=== PATIENT | male | born 1960 | race Caucasian/White ===

== ENCOUNTER 2018-03-24 14:30 | Outpatient (RCR) | payer OTHER, SELFPAY ==
--- NOTE | 2017-11-06 16:02 | HP.PTEVAL_ITS ---
Patient's Visit Information MOISES FERREIRA is a 57 year old M referred to Physical Therapy by Frederick Owen [facility] with a diagnosis of R ACL reconstruction with allograph. Date of Evaluation: 11/06/17 Physical Therapist: Diogenes Torres, PT, - Visit Plan Frequency: 3x /Week Duration: 2 Months Plan: R knee streching and strengthening, balance and proprio, core stab ex's, Bike, and HEP - Subjective Subjective: DOS: 10/24/17. DOI: 07/31/17. Pt reports he was descending a ladder when he stepped into a bin at work and twisted his knee. Pt reports this resulted in a torn ACL and medial and lateral meniscus. Pt reports he was on crutches for 5-6 days, and has been walking normal since. Pt reports he has been using a CPM machine at home, but has not been given any other ex's to do. No T or N in R LE. No sleep diff secondary to pain. Pt is in maintenance dept at work. Pt has not been walking excep-t for when he has his brace on and is locked at 0 degrees. 3/10 pain at rest, and it stays there pretty much all the time. - Pain R knee Pain Intensity (Out of 10): 3 Pain Intensity Range: 3 - Objective Neuro: B LE sensation is WNL to light touch. Girth at joint line: R knee 37.5 cm, L knee 35.5 cm. ROM: L knee 0-140 degrees, R knee 0-85 degrees. MMT: L knee 5/5 throughout. R knee 3/5 throughout - Goals Goal 1:: Decrease R knee pain x 50% to aid with IADL's Goal Time Frame: 8 weeks Goal 2:: Increase R knee ROM x 30 degrees to aid with restoring normal gait pattern Goal Time Frame: 8 weeks Goal 3:: Increase R knee strength x 1 grade to aid with stair negotiation Goal Time Frame: 8 weeks Goal 4:: I with HEP Goal Time Frame: 8 weeks - Rehabilitation Potential Physical Therapy Diagnosis: R knee pain, weakness, and limited ROM secondary to R ACL reconstruction Rehabilitation Potential: Good - Anticipated Interventions Patient/Client Instruction: Educate patient on: Condition, Plan of Care For the Purpose of:: To improve self management Therapeutic Exercise to Include: Strength training, Endurance training, Balance training, Flexibilty training, Gait and locomotor training, Passive ROM, Active ROM, Dynamic Lumbar Stabilization For the Purpose of:: To decrease pain, To increase ROM, To improve muscle performance and motor function Cryotherapy (ice pack, ice massage): Yes For the Purpose of:: To decrease pain Thank you for the opportunity to evaluate your patient. For Medicare and Medicare HMO plans, please review the plan of care and approve it. It will need to be FAXED BACK to us at [phone] for Medicare purposes. Please let me know if there are questions or concerns regarding this plan of care. Physician Signature: Date:
--- NOTE | 2017-12-06 07:32 | HP.PTREVAL_ITS ---
Frederick Owen, It has been my pleasure to treat MOISES FERREIRA over the last 11 visits for R ACL reconstruction with allograph. Please see the progress note below for an update on the physical therapy plan of care! Subjective: Minor pain currently. Objective/Function: R knee pain 1/10, but still elevates to 4/10 at worst. R knee ROM: 0-134. R knee strength: flex= 4/5, ext= 4-/5. Pt is progressing well toward Rx goals. Pt still has sleep diff and difficulty with stair negotiation Plan Plan: Request date extension to 01/20/18 Goals Goal 1:: Decrease R knee pain x 50% to aid with IADL's Goal Time Frame: 8 weeks Goal 2:: Increase R knee ROM x 30 degrees to aid with restoring normal gait pattern Goal Time Frame: 8 weeks Goal 3:: Increase R knee strength x 1 grade to aid with stair negotiation Goal Time Frame: 8 weeks Goal 4:: I with HEP Goal Time Frame: 8 weeks Anticipated Interventions Patient/Client Instruction: Educate patient on: Condition, Plan of Care For the Purpose of:: To improve self management Therapeutic Exercise to Include: Strength training, Endurance training, Balance training, Flexibilty training, Gait and locomotor training, Passive ROM, Active ROM, Dynamic Lumbar Stabilization For the Purpose of:: To decrease pain, To increase ROM, To improve muscle performance and motor function Cryotherapy (ice pack, ice massage): Yes For the Purpose of:: To decrease pain Please do not hesitate to contact me at [phone] by phone or Fax: if you have questions or concerns regarding this new plan of care! Sincerely, Diogenes Torres, PT,
--- NOTE | 2018-03-26 15:02 | HP.PT.NRP ---
HP - Discharge Summary (1) - Patient Information MOISES FERREIRA was seen in my office for initial evaluation on 11/06/17. The following Plan of Care was established for this patient: Initial Frequency: 3x /Week Initial Duration: 2 Months - Anticipated Interventions Patient/Client Instruction: Educate patient on: Condition, Plan of Care For the Purpose of:: To improve self management Therapeutic Exercise to Include: Strength training, Endurance training, Balance training, Flexibilty training, Gait and locomotor training, Passive ROM, Active ROM, Dynamic Lumbar Stabilization For the Purpose of:: To decrease pain, To increase ROM, To improve muscle performance and motor function Cryotherapy (ice pack, ice massage): Yes For the Purpose of:: To decrease pain This patient was last seen in our office . Pertinent comments regarding their Physical therapy will appear below: Pt cancelled today noting he is not going to reschedule as he feels he needs no further PT. Pt is discharged at this time. At this point I will be discontinuing this patient from physical therapy. I would be happy to see this patient again in the future if found appropriate by the physician. Thank you! Diogenes Torres, PT,
== END 2018-03-24 19:00 | disposition home or self-care (01) ==
LOC: PT 14:30
PROVIDERS: Visit Provider Orthopaedic Surgery
DX: S83.511D Sprain of anterior cruciate ligament of right knee, subsequent encounter (principal); S83.271D Complex tear of lateral meniscus, current injury, right knee, subsequent encounter; S83.231D Complex tear of medial meniscus, current injury, right knee, subsequent encounter
CPT/HCPCS: 97016; 97110; 97161; 97530

== ENCOUNTER 2018-05-09 09:01 | Day surgery (SDC) | payer OTHER, SELFPAY ==
[2018-05-09] VITALS (8 sets, daily range): BP systolic 88–134; BP diastolic 59–93; PULSE 66–883; RESP 14–16; TEMP 36–37; O2SAT 92–100; BMI 27.0
--- NOTE | 2018-05-09 | COLBX_PTH ---
PATIENT: MOISES FERREIRA LOC: EN U#:[id number] AGE/SX: 57/M ROOM: RE05/09/[address]: Dr. Uriel Barrientos MD : 1960 BED: DIS: 05/09/2018 SPEC #: [id number] RECD: 05/09/18 14:32 STATUS: MARCELO AMADOR #: [id number] RADHA: 05/09/18 00:[address]: Uriel Barrientos DEPT: SURGICAL PATHOLOGY RECD BY: Shashi Mckay ENTERED: 05/09/18 14:32 SP TYPE: COLON BX OTHR DR: MARCUS Murray Tissues: Sigmoid colon biopsy Procedures: Surgery Specimen Level IV HEADER OPERATION: Colonoscopy PRE-OP DIAGNOSIS: Screening TISSUE SUBMITTED: Proximal sigmoid polyp biopsy MICROSCOPIC DIAGNOSIS Proximal sigmoid polyp, biopsy: Fragments of colonic mucosa, no pathologic diagnosis. SJ:jay 05/12/18 MICROSCOPIC DESCRIPTION Slides are reviewed. GROSS DESCRIPTION Received in fixative is one container labeled with the patient's name and designated proximal sigmoid polyp biopsy. The specimen consists of multiple irregular fragments of light moffett soft tissue that in aggregate measure 1 x 0.3 x 0.1 cm. The specimen is totally submitted in one cassette. / SJ:jay 05/09/18 TC:4 CPT: 55145
--- NOTE | 2018-05-09 10:52 | PCM.HP.STD ---
Problem List (1) Screening for intestinal cancer Status: Acute History of Present Illness Date of Admission: 05/09/18 The patient is a 57 year old M who presents for screening colonoscopy. Month ago he had a 1 week history of diarrhea. He has not had anything like that previously and has not had anything since. He claims that he was checked and was noted to be possibly milk intolerant. He also states that on 1 of the checks during that episode he had some heme positive stool. He has not noticed any bright red blood per rectum or melena. Family history is notable for maternal and paternal grandfathers with colon cancer. He has never had a previous colonoscopy. He denies abdominal pain. He has not had any unexpected weight loss. He otherwise enjoys good health. Past Medical History Allergies No Known Allergies Allergy (Verified 05/06/18 11:06) Home Medications: Ambulatory Orders Medication Instructions Recorded NK 05/06/18 Smoking Status: Never smoker Tobacco Use: Non-smoker Review of Systems Constitutional: Denies: Anorexia HEENT: Denies: Difficulty Swallowing Cardiovascular: Denies: Chest Pain Respiratory: Denies: Cough Gastrointestinal: Denies: Abdominal Pain, Constipation Genitourinary: Denies: Dysuria Endocrine: Denies: Change in Body Habitus Hematologic/ Lymphatic: Denies: Adenopathy VTE Information - Inpt Only VTE Present on Admission: No Patient Problems: Active and Suspected Problems Screening for intestinal cancer (Acute) - Physical Exam General: Alert, Oriented x3, Cooperative, No apparent distress HEENT: Atraumatic Oral: Moist Mucosa Neck: Supple Lungs: Clear to auscultation Cardiovascular: Regular rate, Regular Rhythm Abdomen: Bowel Sounds Present, Soft, Non Tender Extremities: No clubbing Skin: No rashes Musculoskeletal: No Tenderness to Palpation of Joints or Extremities Lymphatic: No Cervical, Supraclavicular, or Inguinal Adenopathy Neurological: Cranial nerves II-XII grossly intact Vital Signs Temp Pulse Resp BP Pulse Ox 98.6 F 66 16 124/93 H 95 05/09/18 09:34 05/09/18 09:34 05/09/18 09:34 05/09/18 09:34 05/09/18 09:34 Oxygen Delivery Method Room Air Weight: 164 lb 12.8 oz Body Mass Index (BMI) 27.0 Assessment/Plan All Active Problems Screening for intestinal cancer (Acute) I am proposing the patient is screening colonoscopy with possible biopsy or polypectomy is indicated. He has had an opportunity to ask and have questions answered. He is presenting via our open access program. Primary care provider is Christiano Barrientos M.D., F.A.C.S.
--- NOTE | 2018-05-09 11:32 | OP.ENDO_ITS ---
Patient Name: Drake Rolle Procedure Date: 05/09/2018 10:15 AM Date of : 1960 Age: 57 Procedure: Colonoscopy Indications: Screening for colorectal malignant neoplasm Providers: Uriel Barrientos MD Referring MD: Uriel Barrientos MD Medicines: Midazolam 5 mg IV, Meperidine 100 mg IV Patient Profile: Last Colonoscopy: none. The patient's first colonoscopy is today. Complications: No immediate complications. Procedure: Pre-Anesthesia Assessment: - Prior to the procedure, a History and Physical was performed, and patient medications and allergies were reviewed. The patient's tolerance of previous anesthesia was also reviewed. The risks and benefits of the procedure and the sedation options and risks were discussed with the patient. All questions were answered, and informed consent was obtained. Prior Anticoagulants: The patient has taken no previous anticoagulant or antiplatelet agents. ASA Grade Assessment: II - A patient with mild systemic disease. After reviewing the risks and benefits, the patient was deemed in satisfactory condition to undergo the procedure. After I obtained informed consent, the scope was passed under direct vision. Throughout the procedure, the patient's blood pressure, pulse, and oxygen saturations were monitored continuously. The colonoscope was introduced through the anus and advanced to the cecum, identified by appendiceal orifice and ileocecal valve. The colonoscopy was performed with moderate difficulty due to a tortuous colon. Successful completion of the procedure was aided by increasing the dose of sedation medication, changing the patient to a supine position and applying abdominal pressure. The patient tolerated the procedure well. The quality of the bowel preparation was good. The ileocecal valve was photographed. Moderate Sedation: Moderate (conscious) sedation was personally administered by the endoscopist. The following parameters were monitored: oxygen saturation, heart rate, blood pressure, and response to care. Total physician intraservice time was 15 minutes. Scope In: 10:59:32 AM Scope Withdrawal Time 0 hours 8 minutes 22 seconds Scope Out: 11:26:18 AM Total Procedure Duration Time 0 hours 26 minutes 46 seconds Findings: The perianal and digital rectal examinations were normal. Multiple diverticula were found in the entire colon. A 6 mm polyp was found in the proximal sigmoid colon. The polyp was sessile. The polyp was removed with a cold snare. Resection and retrieval were complete. Impression: - Diverticulosis in the entire examined colon. - One 6 mm polyp in the proximal sigmoid colon, removed with a cold snare. Resected and retrieved. This was vague. Will await pathology Recommendation: - Repeat colonoscopy in 5 years for surveillance based on pathology results. - Telephone my office for pathology results in 1 week. - Resume previous diet. - Continue present medications. Procedure Code(s): --- Professional --- 30569, Colonoscopy, flexible; with removal of tumor(s), polyp(s), or other lesion(s) by snare technique 75898, 59, Moderate sedation services provided by the same physician or other qualified health after school caregiver performing the diagnostic or therapeutic service that the sedation supports, requiring the presence of an independent trained observer to assist in the monitoring of the patient's level of consciousness and physiological status; initial 15 minutes of intraservice time, patient age 5 years or older Diagnosis Code(s): --- Professional --- Z12.11, Encounter for screening for malignant neoplasm of colon D12.5, Benign neoplasm of sigmoid colon K57.30, Diverticulosis of large intestine without perforation or abscess without bleeding CPT copyright 2017 [employer]. All rights reserved. The codes documented in this report are preliminary and upon medical records clerk review may be revised to meet current compliance requirements. Uriel Barrientos MD 05/09/2018 11:32:16 AM This report has been signed electronically. Number of Addenda: 0 Note Initiated On: 05/09/2018 10:15 AM
== END 2018-05-09 12:29 | disposition home or self-care (01) ==
LOC: EN 09:01 → AC 09:03
PROVIDERS: Family Provider Physician Assistant; PCP Physician Assistant; Visit Provider Surgery
PROC: 0DJD8ZZ Inspection of Lower Intestinal Tract, Via Natural or Artificial Opening Endoscopic (ICD-10-PCS; CPT 45378; principal; 2018-05-09 10:10)
DX: Z12.11 Encounter for screening for malignant neoplasm of colon (principal); D12.5 Benign neoplasm of sigmoid colon; K57.30 Diverticulosis of large intestine without perforation or abscess without bleeding; Z80.0 Family history of malignant neoplasm of digestive organs
CPT/HCPCS: 45385; 88305; 99152; 99153; J7120

== ENCOUNTER 2022-12-22 11:55 | Emergency (ER) | payer OTHER, SELFPAY ==
[2022-12-22 11:56] VITALS: BP 185/108; PULSE 75; RESP 16; TEMP 36.2; O2SAT 97
--- NOTE | 2022-12-22 12:15 | CT_ITS ---
STUDY: CT BRAIN WITHOUT CONTRAST REASON FOR EXAM: Male, 62 years old. dizziness, disequilibrium PT STATES SKIN HURTSTamp;quot; ON FOREARMS SINCE SATURDAY. DIZZINESS SINCE LAST NIGHT UPON STANDING WITH VOMITING. RADIATION DOSAGE (If Supplied By Facility): CTDIvol = ( 44.99 ) mGy, DLP = ( 796.11 ) mGycm TECHNIQUE: Transaxial CT imaging of the brain was performed without administration of intravenous contrast material. Individualized dose optimization techniques were used for this CT. COMPARISON: None. FINDINGS: Normal soft tissue structures. Normal calvarium. Normal size ventricles and extra-axial spaces for the patient''s age. There are areas of decreased attenuation within the white matter tracts of the supratentorial brain, consistent with microvascular disease changes. Normal basal ganglia and thalami. Normal brainstem. Normal cerebellum. No visualized asymmetric dense artery sign or sulcal effacement or parenchymal edema is present. Cavernous sinus ICA atherosclerotic calcifications are seen. There is no intracranial hemorrhage. There are no findings of an acute ischemic infarction. There is mucoperiosteal inflammatory disease of the paranasal sinuses consistent with mild chronic sinusitis. CT/Brain/Head without Contrast IMPRESSION: Unremarkable unenhanced CT scan of the brain. Electronically Signed: Jamshid Dubon MD at 13:30 EDT ,
--- NOTE | 2022-12-22 12:15 | EKG12_ITS ---
Test Reason : dizziness Blood Pressure : / mmHG Vent. Rate : 066 BPM Atrial Rate : 066 BPM P-R Int : 152 ms QRS Dur : 098 ms QT Int : 386 ms P-R-T Axes : -04 017 057 degrees QTc Int : 404 ms Normal sinus rhythm Nonspecific T wave abnormality Abnormal ECG Confirmed by EDWIN WALLACE, KAREN ([id number]), development editor MICHELLE FANG ([id number]) on 12/24/2022 11:28:41 A M Referred By: Noel Confirmed By:MARIO PINEDA MD
--- NOTE | 2022-12-22 12:16 | EX.ED.DYSGE1 ---
HPI History of Present Illness Chief Complaint: Dizziness Detail of Chief Complaint: Dizziness and feeling off balance Informant: patient Narrative Narrative: Patient presents to the emergency department with complaint of dizziness and feeling off balance since he woke up at 4 AM. Patient he noticed that when he went to the bathroom he was kind of off balance but thought it was just because he had just woken up. He went back to bed. Upon waking again he feels lightheaded and off balance especially with standing and walking. He did vomit after 930x2. He denies falls or head injuries. He denies headache. Denies recent illness. He denies chest pain or shortness of breath. Patient does have history of vertigo 10 years ago but is not sure if this is the same. Patient denies a spinning sensation. [facility] Medical History (Updated 12/22/22 @ 14:[address] Jeanette Rodriguez, ) Back pain with history of spinal surgery Home Medications meclizine 25 mg chewable tablet (Antivert) 25 mg PO TID PRN diziness #20 tabs 12/22/22 [Rx Last Taken Unknown] ondansetron 4 mg disintegrating tablet 4 mg PO Q8H PRN PRN Nausea #10 tabs 12/22/22 [Rx Last Taken Unknown] Allergy/AdvReac Type Severity Reaction Status Date / Time No Known Allergies Allergy Verified 12/22/22 11:56 Surgical History H/O knee surgery Social History Smoking Status: Never smoker ROS ROS ED Review of Systems ROS Unobtainable: other Constitutional Constitutional ED: Reports lethargy; Denies chills, fever(s), sweats or weight loss Eyes Eyes: Denies blurry vision, change in vision or diplopia ENT ENT ED: Denies rhinorrhea or sore throat Cardiovascular Cardiovascular: Denies chest pain, orthopnea or racing heartbeat Respiratory/Chest Respiratory/Chest: Denies cough, dyspnea, dyspnea on exertion, orthopnea or sputum Gastrointestinal Gastrointestinal: Reports nausea and vomiting; Denies abdominal pain or diarrhea Genitourinary Genitourinary ED: Denies dysuria, hematuria or urinary frequency Musculoskeletal Musculoskeletal: Denies arthralgias, back pain, myalgias or neck pain Integumentary Denies abscess, Abrasions or rash Neurologic Neurologic: Reports other Details: Dizziness ; Denies headache(s) or weakness Psychiatric Psychiatric: Denies anxiety, depression or suicidal thoughts Endocrine Endocrinology: Denies polydipsia, polyphagia or polyuria Hematologic/Lymphatic Hematologic/Lymphatic: Denies easy bleeding, easy bruising or lymphadenopathy Allergic/Immunologic Allergic/Immunologic ED: Denies mouth swelling, tongue swelling or urticaria EXAM Physical Exam Const Vital Signs: 12/22/22 11:56 12/22/22 12:45 12/22/22 14:00 Temperature 97.2 F L Temperature Source Temporal Pulse Rate 75 71 Pulse Rate [Lying] 62 Pulse Rate [Sitting (for 1 minute prior to obtaining)] 65 Pulse Rate [Standing (for 1 minute prior to obtaining)] 71 Respiratory Rate 16 18 Blood Pressure 185/108 H 160/93 H Blood Pressure [Lying] 162/88 H Blood Pressure [Sitting (for 1 minute prior to obtaining)] 154/94 H Blood Pressure [Standing (for 1 minute prior to obtaining)] 150/95 H Blood Pressure Mean 133 115 Blood Pressure Mean [Lying] 112 Blood Pressure Mean [Sitting (for 1 minute prior to obtaining)] 114 Blood Pressure Mean [Standing (for 1 minute prior to obtaining)] 113 Pulse Ox 97 95 Oxygen Delivery Method Room Air Room Air Positive well nourished and well developed General Appearance ED: well developed and NAD HEENT Reports TM's clear and moist mucous membranes normocephalic and atraumatic; Negative for trauma or tenderness Tympanic Membrane ED: Yes TM's clear Eyes PERRL and EOMs intact bilaterally General Eye ED: Negative for pale conjunctiva or scleral icterus Neck no lymphadenopathy, supple and no JVD General: Negative for tenderness Chest Wall inspection of chest normal and palpation of chest normal Chest: Negative for tenderness Resp normal respiratory effort and clear to auscultation bilaterally Effort and Inspection: Negative for respiratory distress or pain with movement Auscultation: Negative for rhonchi, wheezes or diminished lung sounds Cardio regular rate, regular rhythm, S1 normal heart sound, S2 normal heart sound and no murmurs Peripheral Pulses: pulses 2+ throughout GI normal to inspection, nondistended, normoactive bowel sounds, soft to palpation, non-tender, non-distended and no masses Back/Spine no CVA tenderness and no thoracic nor lumbar tenderness Extremity normal to inspection General Extremety ED: Negative for edema General Extremity: Negative for edema Neuro oriented x3, CN's II-XII intact bilaterally, no sensory deficits noted and gait normal Neuro Narrative: Finger-nose and heel emanuel testing within normal limits, negative Romberg, negative for drift, fundi benign. Hallpike maneuver performed was negative for nystagmus. He only felt lightheaded when sitting up from a supine position. Again no nystagmus noted. Sensorium / Orientation: awake, alert, oriented to person, oriented to place and oriented to time Motor Exam: strength 5/5 throughout and strength abnormal Psych mental status grossly normal Skin no rashes or lesions noted and no wounds MDM MDM MDM Narrative Medical decision making narrative: Patient presents with vague symptoms of feeling off balance and dizziness. He did vomit several times. He does have remote history of vertigo. Clinically there is no nystagmus. I did obtain a CT scan of the brain without contrast and this was unremarkable. CBC with differential was normal. Chemistries unremarkable. Troponin was normal at 6. I did obtain an EKG that showed a sinus rhythm with a rate of 66 bpm with some nonspecific ST changes and when compared with prior EKG from [address] changes appear to be new with flipped T waves in V3 and V4. Clinically I do not feel he is having acute coronary syndrome. He has not had any chest pain or exertional symptoms. I did treat him with Antivert 25 mg p.o. and he felt markedly improved. He was able to ambulate without difficulty. I suspect symptoms likely benign positional vertigo. I do not feel he is having central vertigo or strokelike symptoms. Patient will be given a prescription for Zofran as well as Antivert. Advised to follow-up with primary care physician within next 3 to 5 days. Advised to return if persistent dizziness, difficulty with balance or speech or focal weakness or condition should worsen anyway. Lab Data Attestation: I reviewed the patient's lab results. Labs: Laboratory Results - last 24 hr 12/22/22 12/22/22 12:10 12:10 WBC 6.7 RBC 5.12 Hgb 15.2 Hct 45.4 MCV 88.7 MCH 29.7 MCHC 33.5 RDW Std Deviation 41.3 RDW Coeff of Antony 12.7 Plt Count 201 MPV 9.2 Immature Gran % (Auto) 0.600 Neut % (Auto) 69.0 Lymph % (Auto) 20.4 [place] % (Auto) 5.9 Eos % (Auto) 2.9 Baso % (Auto) 1.2 H Absolute Neuts (auto) 4.6 Absolute Lymphs (auto) 1.36 Nucleated RBC % 0 Sodium 141 Potassium 4.0 Chloride 108 H Carbon Dioxide 26.0 Anion Gap 7 BUN 18 Creatinine 0.77 Estim Creat Clear Calc 92.06 Est GFR (MDRD) Af Amer 132 Est GFR (MDRD) Non-Af 109 BUN/Creatinine Ratio 23.3 H Glucose 115 H Calcium 9.2 Troponin I High Sens 6 Radiography Diagnostic Testing: Clinical Impression(s) from Imaging Studies Brain CT 12/22/22 12:15 IMPRESSION: Unremarkable unenhanced CT scan of the brain. Electronically Signed: Jamshid Dubon MD at 13:30 EDT , EKG Initial EKG: Attestation: I personally reviewed and interpreted this EKG as follows: Comments: Sinus rhythm with a rate of [address] changes Prior EKG tracings: available for review Prior: Changed Discharge Plan Triage Chief Complaint: Dizziness ED Provider: Jeanette Rodriguez Dx/Rx/DC Orders Clinical Impression: Vertigo Instructions: ED BPV Vertigo, ED Dizziness, Uncertain Cause Prescriptions: New ondansetron [ondansetron] 4 mg tablet,disintegrating 4 mg PO Q8H PRN PRN (Reason: Nausea) Qty: 10 0RF meclizine [Antivert] 25 mg tablet,chewable 25 mg PO TID PRN (Reason: diziness) Qty: 20 0RF Primary Care Provider: Roselia Anglin Referrals: Roselia Anglin, PA [Primary Care Provider] - 3-5 Days Disposition Disposition: Home, Self Care
[2022-12-22] MEDS: 0.9% Normal Saline 1,000 ML 150 ML IV (12:25)
[2022-12-22] MEDS: Ondansetron 4 MG/2 ML Vial IV (12:26)
[2022-12-22 12:27] VITALS: BMI 27.2
[2022-12-22 12:42] LABS: Absolute Lymphocyte Count 1.36 X10^3/uL (0.83-4.51); Absolute Neutrophil Count 4.6 X10^3/uL (2.0-7.7); Basophil# 0.08 X10^3/uL; Basophil% 1.2 % (0-1); Eosinophil# 0.19 X10^3/uL; Eosinophils% 2.9 % (0-5); Hematocrit 45.4 % (40-54); Hemoglobin 15.2 g/dL (13.0-16.5); Lymphocyte # 1.36 X10^3/ul (0.83-4.51); Lymphocyte % 20.4 % (19-41); Mean Corp Hgb Conc 33.5 g/dL (32-36); Mean Corpuscular Hgb 29.7 pg (27.0-32.0); Mean Corpuscular Volume 88.7 fL (80-94); Mean Platelet Vol. 9.2 fl (6.2-12.0); Monocyte# 0.39 X10^3/uL; Monocyte% 5.9 % (0-10); NRBC Flagged by Analyzer 0 % (0-5); Platelet Count 201 K/mm3 (150-450); RBC Distribution Width CV 12.7 % (11.6-14.6); RBC Distribution Width SD 41.3 fl (35.1-43.9); Red Blood Count 5.12 M/mm3 (4.6-6.2); White Blood Count 6.7 K/mm3 (4.4-11.0)
[2022-12-22 12:45] VITALS: BP 150/95; BP 154/94; BP 162/88; PULSE 62; PULSE 65; PULSE 71
[2022-12-22 12:49] LABS: Anion Gap 7 (5-15); BUN 18 mg/dL (7-18); BUN/Creat Ratio 23.3 RATIO (10-20); Calcium,Total 9.2 mg/dL (8.5-10.1); Chloride 108 mmol/L (98-107); Creatinine, Serum 0.77 mg/dL (0.70-1.30); EST Glomerular Filtration Rate 109 mL/min (>60); Est Glom Filt Rate - Afr Amer 132 mL/min (>60); Estimated Creatinine Clearance 92.06 ml/min; Glucose 115 mg/dL (74-106); Sodium Level 141 mmol/L (136-145); Troponin-I HS 6 pg/mL (3.0-78.0)
[2022-12-22] MEDS: Meclizine HCl 25 MG Tablet PO (13:28)
[2022-12-22 14:00] VITALS: BP 160/93; PULSE 71; RESP 18; O2SAT 95
== END 2022-12-22 15:36 | disposition home or self-care (01) ==
PROVIDERS: Emergency Provider Emergency Medicine; PCP Physician Assistant; Visit Provider Emergency Medicine
DX: R42 Dizziness and giddiness (principal)
CPT/HCPCS: 70450; 80048; 84484; 85025; 93005; 96361; 96374; 99285; J7030; J2405

== ENCOUNTER 2023-01-05 17:27 | Observation (INO) | payer OTHER, SELFPAY ==
[2023-01-05 17:28] VITALS: BP 158/99; PULSE 71; RESP 16; TEMP 36.7; O2SAT 96; BMI 27.7
--- NOTE | 2023-01-05 17:43 | EDS_ITS ---
HPI History of Present Illness Chief Complaint: Weakness Informant: patient Onset/Context/Timing Onset: Weeks (2) Context: Gradual Onset Timing: Continuous Quality: Numbness Location: Bilateral forearms, hands, and feet Worsened by: Nothing Relieved by: Nothing Narrative Narrative: Patient presents with dizziness and weakness has been constant for the past 2 weeks. Patient was seen here 2 weeks ago and was diagnosed with vertigo. Patient states that since that time he feels some numbness to both forearms, hands, and feet. Patient states it is better when he wakes up in the morning. Patient states it is worse later in the day. Patient does admit to a mild hea dache. Patient admits to some pain in his neck and back. Patient states he has been having difficulty ambulating. [facility] Medical History Back pain with history of spinal surgery Home Medications meclizine 25 mg chewable tablet (Antivert) 25 mg PO TID PRN diziness #20 tabs 12/22/22 [Rx Last Taken Unknown] ondansetron 4 mg disintegrating tablet 4 mg PO Q8H PRN PRN Nausea #10 tabs 12/22/22 [Rx Last Taken Unknown] Allergy/AdvReac Type Severity Reaction Status Date / Time No Known Allergies Allergy Verified 12/22/22 11:56 Surgical History H/O knee surgery Social History Smoking Status: Never smoker alcohol intake: former details: Drinking alcohol 2 weeks ago ROS ROS ED Constitutional Constitutional ED: Denies chills or fever(s) Eyes Eyes: Denies blurry vision or change in vision ENT ENT ED: Denies rhinorrhea or sore throat Cardiovascular Cardiovascular: Denies chest pain or palpitations Respiratory/Chest Respiratory/Chest: Denies cough or dyspnea Gastrointestinal Gastrointestinal: Denies nausea or vomiting Genitourinary Genitourinary ED: Denies dysuria or hematuria Musculoskeletal Musculoskeletal: Reports back pain and neck pain Integumentary Denies abscess or rash Neurologic Neurologic: Reports headache(s), paresthesias and weakness Allergic/Immunologic Allergic/Immunologic ED: Denies mouth swelling or urticaria EXAM Physical Exam Const Vital Signs: 01/05/23 17:28 01/05/23 17:27 01/05/23 18:01 Temperature 98.0 F Temperature Source Temporal Pulse Rate 71 Pulse Rate [Lying] 72 Pulse Rate [Sitting (for 1 minute prior to obtaining)] 79 Pulse Rate [Standing (for 1 minute prior to obtaining)] 76 Respiratory Rate 16 Respiratory Effort Normal Respiratory Pattern Normal Blood Pressure 158/99 H Blood Pressure [Lying] 144/94 H Blood Pressure [Sitting (for 1 minute prior to obtaining)] 150/94 H Blood Pressure [Standing (for 1 minute prior to obtaining)] 142/99 H Blood Pressure Mean 118 Blood Pressure Mean [Lying] 110 Blood Pressure Mean [Sitting (for 1 minute prior to obtaining)] 112 Blood Pressure Mean [Standing (for 1 minute prior to obtaining)] 113 Pulse Ox 96 Oxygen Delivery Method Room Air 01/05/23 19:27 Temperature Temperature Source Pulse Rate 63 Pulse Rate [Lying] Pulse Rate [Sitting (for 1 minute prior to obtaining)] Pulse Rate [Standing (for 1 minute prior to obtaining)] Respiratory Rate 19 H Respiratory Effort Respiratory Pattern Blood Pressure 152/92 H Blood Pressure [Lying] Blood Pressure [Sitting (for 1 minute prior to obtaining)] Blood Pressure [Standing (for 1 minute prior to obtaining)] Blood Pressure Mean 112 Blood Pressure Mean [Lying] Blood Pressure Mean [Sitting (for 1 minute prior to obtaining)] Blood Pressure Mean [Standing (for 1 minute prior to obtaining)] Pulse Ox 95 Oxygen Delivery Method Room Air Positive well nourished and well developed General Appearance ED: well developed and NAD HEENT Reports moist mucous membranes Neck supple and no JVD Resp normal respiratory effort and clear to auscultation bilaterally Cardio regular rate, regular rhythm and no murmurs GI normal to inspection, nondistended, normoactive bowel sounds and non-tender Palpation: soft Extremity normal to inspection General Extremety ED: Negative for edema or tenderness General Extremity: Negative for edema Neuro oriented x3, CN's II-XII intact bilaterally and no sensory deficits noted Neuro Narrative: [id number] and [id number] are intact. Sensorium / Orientation: alert Motor Exam: strength 5/5 throughout Psych mental status grossly normal Skin no rashes or lesions noted MDM MDM MDM Narrative Medical decision making narrative: Differential diagnosis includes electrolyte abnormality, hepatic abnormality, stroke, vertigo, migraine headache, infection, and anxiety. CT scan of the brain will be obtained to assess for stroke. CBC will be obtained to assess for leukocytosis and anemia. Comprehensive metabolic profile will be obtained to assess for hepatic function, renal function, and electrolyte abnormality. Urinalysis will be obtained to assess for urinary tract infection. PT was INR and PTT will be obtained to assess for coagulopathy. Lab Data Attestation: I reviewed the patient's lab results. Lab results narrative: CBC was reviewed and was within normal limits. PT with INR and PTT was reviewed and was within normal limits. Comprehensive metabolic profile was reviewed and was within normal limits. Urinalysis was reviewed. There is no evidence of urinary tract infection or hematuria. Labs: Laboratory Results - last 24 hr 01/05/23 01/05/23 01/05/23 18:05 18:05 18:05 WBC 7.6 RBC 5.11 Hgb 15.0 Hct 44.5 MCV 87.1 MCH 29.4 MCHC 33.7 RDW Std Deviation 39.2 RDW Coeff of Antony 12.3 Plt Count 226 MPV 8.5 Immature Gran % (Auto) 0.700 Neut % (Auto) 45.5 L Lymph % (Auto) 38.4 [place] % (Auto) 8.2 Eos % (Auto) 6.1 H Baso % (Auto) 1.1 H Absolute Neuts (auto) 3.5 Absolute Lymphs (auto) 2.92 Nucleated RBC % 0 PT 12.3 INR 0.9 APTT 27.6 Sodium 140 Potassium 3.9 Chloride 105 Carbon Dioxide 27.0 Anion Gap 8 BUN 14 Creatinine 0.76 Estim Creat Clear Calc 93.27 Est GFR (MDRD) Af Amer 134 Est GFR (MDRD) Non-Af 111 BUN/Creatinine Ratio 18.3 Glucose 115 H Calcium 9.3 Total Bilirubin 0.30 AST 24 ALT 32 Alkaline Phosphatase 50 Total Protein 7.4 Albumin 3.9 Globulin 3.5 Albumin/Globulin Ratio 1.1 Urine Color Urine Clarity Urine pH Ur Specific [place] Urine Protein Urine Glucose (UA) Urine Ketones Urine Occult Blood Urine Nitrite Urine Bilirubin Urine Urobilinogen Ur Leukocyte Esterase 01/05/23 18:36 WBC RBC Hgb Hct MCV MCH MCHC RDW Std Deviation RDW Coeff of Antony Plt Count MPV Immature Gran % (Auto) Neut % (Auto) Lymph % (Auto) [place] % (Auto) Eos % (Auto) Baso % (Auto) Absolute Neuts (auto) Absolute Lymphs (auto) Nucleated RBC % PT INR APTT Sodium Potassium Chloride Carbon Dioxide Anion Gap BUN Creatinine Estim Creat Clear Calc Est GFR (MDRD) Af Amer Est GFR (MDRD) Non-Af BUN/Creatinine Ratio Glucose Calcium Total Bilirubin AST ALT Alkaline Phosphatase Total Protein Albumin Globulin Albumin/Globulin Ratio Urine Color Straw Urine Clarity Clear Urine pH 7.0 Ur Specific [place] 1.005 Urine Protein Negative Urine Glucose (UA) Normal Urine Ketones Negative Urine Occult Blood Negative Urine Nitrite Negative Urine Bilirubin Negative Urine Urobilinogen Normal Ur Leukocyte Esterase Negative Radiography Diagnostic Testing: Clinical Impression(s) from Imaging Studies Brain CT 01/05/23 17:50 IMPRESSION: No acute intracranial hemorrhage or mass effect. Electronically Signed: Meet Galvan (Brooks), at 19:01 EDT , CT scan of the brain was obtained. There is no acute intracranial abnormality. This was interpreted by the radiologist and was also independently reviewed by myself. Management Discussion w/another healthcare provider: Hospitalist Treatment and Re-Evaluation :: On reevaluation, patient states he still feels dizzy. Patient states he has been taking meclizine at home with no improvement. Patient delayed but was unsteady on his feet with ambulation. Because of the persistent ataxia, I feel that this could be from a possible stroke, and the patient is agreeable to being admitted for further stroke work-up. Case will be discussed with the hospitalist. He will admit the patient for observation. Patient and spouse understood and were agreeable with the plan. All questions were answered. Discharge Plan Dx/Rx/DC Orders Clinical Impression: Ataxia, Difficulty walking Disposition Disposition: Acute Care Hospital [facility]
--- NOTE | 2023-01-05 17:50 | CT_ITS ---
STUDY: CT BRAIN WITHOUT CONTRAST REASON FOR EXAM: Male, 62 years old. Dizziness RADIATION DOSAGE (If Supplied By Facility): CTDIvol = ( 44.99 ) mGy, DLP = ( 779.24 ) mGycm TECHNIQUE: Transaxial CT imaging of the brain was performed without administration of intravenous contrast material. Individualized dose optimization techniques were used for this CT. COMPARISON: 12/22/2022 FINDINGS: Normal soft tissue structures. Normal calvarium. Normal size ventricles and extra-axial spaces for the patient''s age. Normal white matter tracts of the cerebral hemispheres. Normal basal ganglia and thalami. Normal brainstem. Normal cerebellum. There is no intracranial hemorrhage. There are no findings of an acute ischemic infarction. Normal visualized paranasal sinuses. CT/Brain/Head without Contrast IMPRESSION: No acute intracranial hemorrhage or mass effect. Electronically Signed: Meet Galvan (Brooks), at 19:01 EDT ,
[2023-01-05 18:01] VITALS: BP 142/99; BP 144/94; BP 150/94; PULSE 72; PULSE 76; PULSE 79
[2023-01-05 18:18] LABS: Absolute Lymphocyte Count 2.92 X10^3/uL (0.83-4.51); Absolute Neutrophil Count 3.5 X10^3/uL (2.0-7.7); Basophil# 0.08 X10^3/uL; Basophil% 1.1 % (0-1); Eosinophil# 0.46 X10^3/uL; Eosinophils% 6.1 % (0-5); Hematocrit 44.5 % (40-54); Lymphocyte # 2.92 X10^3/ul (0.83-4.51); Lymphocyte % 38.4 % (19-41); Mean Corp Hgb Conc 33.7 g/dL (32-36); Mean Corpuscular Hgb 29.4 pg (27.0-32.0); Mean Corpuscular Volume 87.1 fL (80-94); Mean Platelet Vol. 8.5 fl (6.2-12.0); Monocyte# 0.62 X10^3/uL; Monocyte% 8.2 % (0-10); NRBC Flagged by Analyzer 0 % (0-5); Neutrophil # 3.47 X10^3/uL (2.7-7.7); Neutrophil % 45.5 % (47-70); Platelet Count 226 K/mm3 (150-450); RBC Distribution Width CV 12.3 % (11.6-14.6); RBC Distribution Width SD 39.2 fl (35.1-43.9); Red Blood Count 5.11 M/mm3 (4.6-6.2); White Blood Count 7.6 K/mm3 (4.4-11.0)
[2023-01-05] MEDS: 0.9% Normal Saline 1,000 ML 1000 ML IV (18:22)
[2023-01-05 18:36] LABS: ALB/GLOB Ratio 1.1 RATIO (0.9-2.4); AST(SGOT) 24 U/L (15-37); Alanine Aminotransfer ALT/SGPT 32 U/L (16-61); Albumin, Serum 3.9 g/dL (3.2-5.0); Alkaline Phosphatase 50 U/L (45-117); Anion Gap 8 (5-15); BUN 14 mg/dL (7-18); BUN/Creat Ratio 18.3 RATIO (10-20); Calcium,Total 9.3 mg/dL (8.5-10.1); Chloride 105 mmol/L (98-107); Creatinine, Serum 0.76 mg/dL (0.70-1.30); EST Glomerular Filtration Rate 111 mL/min (>60); Est Glom Filt Rate - Afr Amer 134 mL/min (>60); Estimated Creatinine Clearance 93.27 ml/min; Globulin 3.5 g/dL (2.2-4.2); Glucose 115 mg/dL (74-106); Potassium 3.9 mmol/L (3.5-5.1); Protein, Total 7.4 g/dL (6.4-8.2); Sodium Level 140 mmol/L (136-145)
[2023-01-05 18:37] LABS: International Normalized Ratio 0.9; Partial Thromboplast Time 27.6 Seconds (24.1-36.2); Prothrombin Time (Protime)PT. 12.3 SECONDS (11.7-14.9)
[2023-01-05 18:40] LABS: Bacteria 0 SEEN /hpf (None Seen); Mucous, Urine 0 SEEN /hpf (<or=2+); Red Blood Cells-Urine 0 SEEN /hpf (0-5); Squamous Epithelial Cells - UA 0 SEEN /hpf (0-5); White Blood Cells 0 SEEN /hpf (0-5)
[2023-01-05 18:42] LABS: Color, Urine Straw (Yellow); Glucose, Dipstick Normal (Normal); Ketone-Dipstick Negative (Negative); Leukocyte Esterase-Dipstick Negative /ul (Negative); Nitrite-Dipstick Negative (Negative); Occult Blood-Urine Negative /ul (Negative); Protein-Dipstick Negative (Negative); Specific Gravity, Urine 1.005 (1.002-1.030); Urine Bilirubin Dipstick Negative (Negative); Urine Clarity Clear (Clear); Urine Urobilinogen Normal (Normal)
[2023-01-05 19:27] VITALS: BP 152/92; PULSE 63; RESP 19; O2SAT 95
--- NOTE | 2023-01-05 19:47 | HP.PCM.HOS_ITS ---
HPI - General General Date of Admission: 01/05/23 Date of Service: 01/05/23 Chief Complaint: Unsteadiness of gait HPI Narrative MOISES FERREIRA, is a 62 M who has been newly diagnosed with anxiety disorder and hypertension presents emergency department with 2-week history of progressively worsening unsteady gait. Patient was at a hospital on 2 weeks ago and he was discharged for the same symptoms. However his symptoms has worsened and now to his unsteadiness of gait he also has severe and numbness and loss of strength in the bilateral hands. Because of strength in his hands he dropped a pizza. Also he has some mild numbness in his bilateral feet however he has not lost the strength in his bilateral feet. Also when his symptoms started he had some nausea and vomiting that has since resolved. He reports a tingling sensation between his shoulder blades when he exerts himself like bending over. Of note patient had unsteady gait in about 10 to 15 years ago. He reported at that time he was diagnosed with vertigo although he did not have any spinning sensation. He reports that typically he drinks about 8 beers per day but in the past 2 weeks he has not been drinking. He was at his PCPs office 4 days ago and an EMG was ordered for him. Also he was started on lisinopril and Atarax. When he was at the emergency department 2 weeks ago he was started on meclizine but the meclizine has not been helping him. [facility] Medical History Back pain with history of spinal surgery Home Medications meclizine 25 mg chewable tablet (Antivert) 25 mg PO TID PRN diziness #20 tabs 12/22/22 [Rx Last Taken Unknown] ondansetron 4 mg disintegrating tablet 4 mg PO Q8H PRN PRN Nausea #10 tabs 12/22/22 [Rx Last Taken Unknown] hydroxyzine HCl 10 mg tablet 10 mg PO TID PRN Anxiety 01/05/23 [History Last Taken Unknown] lisinopril 10 mg tablet 10 mg PO DAILY 01/05/23 [History Last Taken Unknown] Allergy/AdvReac Type Severity Reaction Status Date / Time No Known Allergies Allergy Verified 12/22/22 11:56 Family History Other Anxiety Colon cancer Depression Heart disease Surgical History H/O knee surgery Social History Smoking Status: Never smoker alcohol intake: former details: Drinking alcohol 2 weeks ago ROS ROS Narrative Pertinent positives and pertinent negatives as noted in HPI. All other systems were reviewed and are negative Vital Signs Vital Signs Vital Signs: 01/05/23 17:28 01/05/23 17:27 01/05/23 18:01 Temperature 98.0 F Temperature Source Temporal Pulse Rate 71 Pulse Rate [Lying] 72 Pulse Rate [Sitting (for 1 minute prior to obtaining)] 79 Pulse Rate [Standing (for 1 minute prior to obtaining)] 76 Respiratory Rate 16 Respiratory Effort Normal Respiratory Pattern Normal Blood Pressure 158/99 H Blood Pressure [Lying] 144/94 H Blood Pressure [Sitting (for 1 minute prior to obtaining)] 150/94 H Blood Pressure [Standing (for 1 minute prior to obtaining)] 142/99 H Blood Pressure Mean 118 Blood Pressure Mean [Lying] 110 Blood Pressure Mean [Sitting (for 1 minute prior to obtaining)] 112 Blood Pressure Mean [Standing (for 1 minute prior to obtaining)] 113 Pulse Ox 96 Oxygen Delivery Method Room Air 01/05/23 19:27 Temperature Temperature Source Pulse Rate 63 Pulse Rate [Lying] Pulse Rate [Sitting (for 1 minute prior to obtaining)] Pulse Rate [Standing (for 1 minute prior to obtaining)] Respiratory Rate 19 H Respiratory Effort Respiratory Pattern Blood Pressure 152/92 H Blood Pressure [Lying] Blood Pressure [Sitting (for 1 minute prior to obtaining)] Blood Pressure [Standing (for 1 minute prior to obtaining)] Blood Pressure Mean 112 Blood Pressure Mean [Lying] Blood Pressure Mean [Sitting (for 1 minute prior to obtaining)] Blood Pressure Mean [Standing (for 1 minute prior to obtaining)] Pulse Ox 95 Oxygen Delivery Method Room Air Weight Weight: 78.018 kg Body Mass Index (BMI) 27.7 Physical Exam Narrative Physical exam: General: Well-nourished, well-developed. Head: Normocephalic, atraumatic, no tenderness Eyes: Vision is grossly intact. EOMI ENT, no trauma, moist mucous membranes, no rhinorrhea Neck: Nontender, No thyromegaly. CVS: Regular rate and rhythm. S1-S2 present. No murmur, gallop or rub. Respiratory : clear to auscultation bilaterally, chest wall nontender Abdomen: Soft, nontender, nondistended, normal bowel sounds, no masses : Deferred Back: Nontender, no CVA tenderness Extremities: Nontender full range of motion, no trauma Skin: Normal color, no trauma, abrasions Neuro: Alert, oriented, cranial nerves II through XII grossly intact. No dysmetria with [id number] test Aution to his test. Reports dull sensation at left leg compared to right leg. Equal sensation on bilateral forearms. Psychiatry: Normal mood. Normal affect. Not depressed. Not anxious. Results Lab / Micro Data Result Diagrams: 01/05/23 18:05 01/05/23 18:05 Labs: Laboratory Results - last 24 hr 01/05/23 18:05: WBC 7.6, RBC 5.11, Hgb 15.0, Hct 44.5, MCV 87.1, MCH 29.4, MCHC 33.7, RDW Std Deviation 39.2, RDW Coeff of Antony 12.3, Plt Count 226, MPV 8.5, Immature Gran % (Auto) 0.700, Neut % (Auto) 45.5 L, Lymph % (Auto) 38.4, [place] % (Auto) 8.2, Eos % (Auto) 6.1 H, Baso % (Auto) 1.1 H, Absolute Neuts (auto) 3.5, Absolute Lymphs (auto) 2.92, Nucleated RBC % 0 01/05/23 18:05: PT 12.3, INR 0.9, APTT 27.6 01/05/23 18:05: Sodium 140, Potassium 3.9, Chloride 105, Carbon Dioxide 27.0, Anion Gap 8, BUN 14, Creatinine 0.76, Estim Creat Clear Calc 93.27, Est GFR (MDRD) Af Amer 134, Est GFR (MDRD) Non-Af 111, BUN/Creatinine Ratio 18.3, Glucose 115 H, Calcium 9.3, Total Bilirubin 0.30, AST 24, ALT 32, Alkaline Phosphatase 50, Total Protein 7.4, Albumin 3.9, Globulin 3.5, Albumin/Globulin Ratio 1.1 01/05/23 18:36: Urine Color Straw, Urine Clarity Clear, Urine pH 7.0, Ur Specific [place] 1.005, Urine Protein Negative, Urine Glucose (UA) Normal, Urine Ketones Negative, Urine Occult Blood Negative, Urine Nitrite Negative, Urine Bilirubin Negative, Urine Urobilinogen Normal, Ur Leukocyte Esterase Negative Radiology Impression Brain CT 01/05/23 17:50 IMPRESSION: No acute intracranial hemorrhage or mass effect. Electronically Signed: Meet OsmarFahad Galvan, at 19:01 EDT , Assessment & Plan Assessment/Plan (1) Ataxia: (2) Difficulty walking: (3) Numbness and tingling: (4) Alcoholism: PLAN: Plan Ataxia, numbness and tingling With his symptoms at bilateral side doubts CVA. Impressions of brain CT by radiologist:No acute intracranial hemorrhage or mass effect. NIHSS per protocol. On presentation patient was tachycardic needs for tPA since his symptoms been going on for about 2 weeks. MRI/MRA head and neck ordered. Check vitamin B12. Check EMG. Echocardiogram, MRI and MRA of head and neck. Check lipid level. Check A1c. Since home meclizine also given him it is relieved and his symptoms is not really Vertigo home but unsteady gait/ataxia we will discontinue meclizine. Hypertension Blood pressure is not within goal. Continue recently started lisinopril. Trend blood pressures. Alcoholism Reportedly he quit drinking about 2 weeks ago. Drink about 8 beers per day. We will start patient on thiamine and folic acid. Anxiety disorder New problem. Was initiated on Atarax 4 days before presentation. Atarax continued. DVT prophylaxis: Lovenox ordered. Charges/Coding Visit Charges Inpatient E&M: 75951 Init Hosp L3
[2023-01-05 20:10] VITALS: BP 149/96; PULSE 63; RESP 13; TEMP 36.7; O2SAT 96
[2023-01-05 20:38] VITALS: BMI 28.6
[2023-01-05 21:45] VITALS: BP 153/96; PULSE 63; RESP 15; TEMP 36.7; O2SAT 96
[2023-01-05 23:22] VITALS: BMI 28.6
[2023-01-05 23:30] VITALS: O2SAT 93
[2023-01-06] VITALS (7 sets, daily range): BP systolic 130–155; BP diastolic 88–96; PULSE 58–93; RESP 16–18; TEMP 36.4–36.8; O2SAT 93–97; BMI 28.6
[2023-01-06 05:31] LABS: Absolute Lymphocyte Count 2.62 X10^3/uL (0.83-4.51); Basophil# 0.08 X10^3/uL; Basophil% 1.2 % (0-1); Eosinophil# 0.48 X10^3/uL; Eosinophils% 7.1 % (0-5); Hematocrit 40.5 % (40-54); Hemoglobin 13.8 g/dL (13.0-16.5); Lymphocyte # 2.62 X10^3/ul (0.83-4.51); Lymphocyte % 38.9 % (19-41); Mean Corp Hgb Conc 34.1 g/dL (32-36); Mean Corpuscular Hgb 29.8 pg (27.0-32.0); Mean Corpuscular Volume 87.5 fL (80-94); Mean Platelet Vol. 8.7 fl (6.2-12.0); Monocyte# 0.49 X10^3/uL; Monocyte% 7.3 % (0-10); NRBC Flagged by Analyzer 0 % (0-5); Neutrophil # 3.02 X10^3/uL (2.7-7.7); Neutrophil % 44.8 % (47-70); Platelet Count 195 K/mm3 (150-450); RBC Distribution Width CV 12.4 % (11.6-14.6); RBC Distribution Width SD 39.5 fl (35.1-43.9); Red Blood Count 4.63 M/mm3 (4.6-6.2); White Blood Count 6.7 K/mm3 (4.4-11.0)
[2023-01-06 05:52] LABS: Anion Gap 7 (5-15); BUN 11 mg/dL (7-18); BUN/Creat Ratio 18.8 RATIO (10-20); Calcium,Total 8.7 mg/dL (8.5-10.1); Chloride 106 mmol/L (98-107); Cholesterol 170 mg/dL (200); Creatinine, Serum 0.58 mg/dL (0.70-1.30); EST Glomerular Filtration Rate 151 mL/min (>60); Est Glom Filt Rate - Afr Amer 182 mL/min (>60); Estimated Creatinine Clearance 113.41 ml/min; Glucose 102 mg/dL (74-106); High Density Lipoprotein 33 mg/dL; Potassium 3.9 mmol/L (3.5-5.1); Sodium Level 139 mmol/L (136-145); Triglycerides 141 mg/dL
[2023-01-06 05:53] LABS: Very Low Density Lipoprotein 28 mg/dL (5-40)
[2023-01-06] MEDS: Enoxaparin 40 MG/0.4 ML Syringe SC (07:58)
[2023-01-06] MEDS: Aspirin 81 MG TAB.CHEW PO (07:58)
[2023-01-06] MEDS: Acetaminophen 325 MG Tablet 650 MG PO ×2 (08:00→22:33)
[2023-01-06] MEDS: Thiamine Hydrochloride 100 MG Tablet PO (08:00)
[2023-01-06] MEDS: Folic Acid 1 MG Tablet PO (08:00)
[2023-01-06 08:18] LABS: Hemoglobin A1c 5.8 % (3.8-5.6)
--- NOTE | 2023-01-06 09:45 | MRI_ITS ---
HISTORY: cva, dizziness, weakness, numbness and loss of strength bilat hands, numbness bilat feet. TECHNIQUE: Routine [id number] carotid MR angiogram protocol was performed without contrast. 3D reconstructions were reviewed. NASCET criteria using the distal ICAs for comparison were used for evaluation of stenoses. 569 images. COMPARISON: None. FINDINGS: RIGHT CCA: No occlusion or significant stenosis. RIGHT ICA: No occlusion, significant stenosis, or dissection. LEFT CCA: No occlusion or significant stenosis. LEFT ICA: No occlusion, significant stenosis, or dissection. RIGHT VERTEBRAL ARTERY: No occlusion, significant stenosis, or dissection. LEFT VERTEBRAL ARTERY: No occlusion, significant stenosis, or dissection. Hypoplastic. MRI/MRA Neck without Contrast IMPRESSION: No evidence for significant stenosis or occlusion in the vertebral or carotid arteries of the neck. Electronically Signed: Ruchi Pathak MD at 13:06 EDT ,
--- NOTE | 2023-01-06 09:45 | MRI_ITS ---
ACR Level 3 findings have been noted. An addendum which confirms receipt of the report will follow. HISTORY: cva, dizziness, weakness, numbness and loss of strength bilat hands, numbness bilat feet. TECHNIQUE: Routine [place]/brain 3D time of flight MR angiogram protocol was performed without intravenous contrast. 3D reconstructions were reviewed. 195 images. COMPARISON: MRI brain same day. FINDINGS: ICAs: No significant stenosis or aneurysm at the intracranial/visualized segments. ACAs: 4 mm anterior communicating artery aneurysm. No significant stenosis at the visualized segments. MCAs: No significant stenosis or vascular malformation at the visualized segments. field automobile adjuster: No significant stenosis or vascular malformation at the visualized segments. BASILAR ARTERY: No significant stenosis or occlusion, or aneurysm. VERTEBRAL ARTERIES: No significant stenosis or vascular malformation at the intradural/visualized segments. MRI/MRA Head ONLY without Contrast IMPRESSION: 4 mm anterior communicating artery aneurysm. No evidence for large vessel occlusion. Electronically Signed: Ruchi Pathak MD at 11:56 EDT ,
--- NOTE | 2023-01-06 09:45 | MRI_ITS ---
HISTORY: CVA, dizziness, weakness, numbness and loss of strength bilateral hands, numbness bilateral feet. TECHNIQUE: Multiplanar and multisequence MR images of the brain were obtained without contrast. 283 images. COMPARISON: CT prior day. FINDINGS: BRAIN PARENCHYMA: Multiple foci and small zones of increased T2 FLAIR signal in the bilateral cerebral white matter. No abnormal focus of restricted diffusion. No acute intracranial hemorrhage identified. CSF SPACES: Cerebral ventricles, cortical sulci, and other extra-axial CSF spaces within normal limits in size for age. No significant midline shift or other mass effect.No extra-axial fluid collection. VASCULAR SYSTEM: Major intracranial flow voids are maintained. PARANASAL SINUSES AND MASTOID AIR CELLS: Severe opacification of the ethmoid air cells. Mild frontal and left maxillary sinus mucosal thickening. Trace fluid in the left mastoid air cells. ORBITS: Symmetric contents. MRI/Brain without Contrast IMPRESSION: No evidence for acute infarct. Chronic small vessel ischemic gliosis. Ethmoid sinusitis. Electronically Signed: Ruchi Pathak MD at 11:11 EDT ,
[2023-01-06] MEDS: Acetaminophen/Butalbital/Caffe 1 Tablet 2 TABLET PO (12:17)
--- NOTE | 2023-01-06 17:43 | PCM.PN.HOSP ---
Reason for Visit Reason for Visit: Diagnoses Alcohol dependence, uncomplicated (01/05/23) Anesthesia of skin (01/05/23) Paresthesia of skin (01/05/23) Difficulty in walking, not elsewhere classified (01/05/23) Ataxia, unspecified (01/05/23) Subjective Subjective Patient was seen and examined today, he still is complaining of decreased sensation in his hands, patient does not complain of any upper extremity weakness however, patient states that he continues to have trouble ambulating due to unsteadiness, he denies any weakness in his legs. 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 I had teleneurology see the patient today, they recommended additional testing including lab tests and an MRI of the neck without contrast. They do not feel the patient needs to be transferred on the basis of the aneurysm, it was their opinion that if the patient's MRI of the neck was unremarkable, he needed to be transferred to a facility with an onsite neurologist. I had nursing talk with the patient about additional testing I was ordering and the recommendations. Objective Data Objective Data Vital Signs: Vital Signs Temp Pulse Resp BP Pulse Ox O2 Del Method 98.2 F 69 18 155/91 H 95 Room Air 01/06/23 13:58 01/06/23 13:58 01/06/23 13:58 01/06/23 13:58 01/06/23 13:58 01/06/23 13:58 Oxygen Delivery Method Room Air Weight: 75.7 kg Body Mass Index (BMI) 28.6 Intake & Output: Intake and Output for Last 24 Hours 01/04/23 01/05/23 01/06/23 23:59 23:59 23:59 Intake Total 1000 / 1000 Output Total 0 / 0 Balance 1000 / 1000 Lab / Micro Data Result Diagrams: 01/06/23 04:50 01/06/23 04:50 Labs: Laboratory Results - last 24 hr 01/05/23 18:05: WBC 7.6, RBC 5.11, Hgb 15.0, Hct 44.5, MCV 87.1, MCH 29.4, MCHC 33.7, RDW Std Deviation 39.2, RDW Coeff of Antony 12.3, Plt Count 226, MPV 8.5, Immature Gran % (Auto) 0.700, Neut % (Auto) 45.5 L, Lymph % (Auto) 38.4, [place] % (Auto) 8.2, Eos % (Auto) 6.1 H, Baso % (Auto) 1.1 H, Absolute Neuts (auto) 3.5, Absolute Lymphs (auto) 2.92, Nucleated RBC % 0 01/05/23 18:05: PT 12.3, INR 0.9, APTT 27.6 01/05/23 18:05: Sodium 140, Potassium 3.9, Chloride 105, Carbon Dioxide 27.0, Anion Gap 8, BUN 14, Creatinine 0.76, Estim Creat Clear Calc 93.27, Est GFR (MDRD) Af Amer 134, Est GFR (MDRD) Non-Af 111, BUN/Creatinine Ratio 18.3, Glucose 115 H, Calcium 9.3, Total Bilirubin 0.30, AST 24, ALT 32, Alkaline Phosphatase 50, Total Protein 7.4, Albumin 3.9, Globulin 3.5, Albumin/Globulin Ratio 1.1 01/05/23 18:36: Urine Color Straw, Urine Clarity Clear, Urine pH 7.0, Ur Specific Celina 1.005, Urine Protein Negative, Urine Glucose (UA) Normal, Urine Ketones Negative, Urine Occult Blood Negative, Urine Nitrite Negative, Urine Bilirubin Negative, Urine Urobilinogen Normal, Ur Leukocyte Esterase Negative, Urine RBC 0 SEEN, Urine WBC 0 SEEN, Ur Squamous Epith Cells 0 SEEN, Urine Bacteria 0 SEEN, Urine Mucus 0 SEEN 01/06/23 04:50: WBC 6.7, RBC 4.63, Hgb 13.8, Hct 40.5, MCV 87.5, MCH 29.8, MCHC 34.1, RDW Std Deviation 39.5, RDW Coeff of Antony 12.4, Plt Count 195, MPV 8.7, Immature Gran % (Auto) 0.700, Neut % (Auto) 44.8 L, Lymph % (Auto) 38.9, [place] % (Auto) 7.3, Eos % (Auto) 7.1 H, Baso % (Auto) 1.2 H, Absolute Neuts (auto) 3.0, Absolute Lymphs (auto) 2.62, Nucleated RBC % 0 01/06/23 04:50: Sodium 139, Potassium 3.9, Chloride 106, Carbon Dioxide 26.0, Anion Gap 7, BUN 11, Creatinine 0.58 L, Estim Creat Clear Calc 113.41, Est GFR (MDRD) Af Amer 182, Est GFR (MDRD) Non-Af 151, BUN/Creatinine Ratio 18.8, Glucose 102, Calcium 8.7, Triglycerides 141, Cholesterol 170, LDL Cholesterol 109, VLDL Cholesterol 28, HDL Cholesterol 33 L 01/06/23 04:50: Hemoglobin A1c 5.8 H Radiography Diagnostic Testing: Radiology Impression Brain CT 01/05/23 17:50 IMPRESSION: No acute intracranial hemorrhage or mass effect. Electronically Signed: Meet Galvan (Brooks), at 19:01 EDT , Brain MRI 01/06/23 09:45 IMPRESSION: No evidence for acute infarct. Chronic small vessel ischemic gliosis. Ethmoid sinusitis. Electronically Signed: Ruchi Pathak MD at 11:11 EDT , Head MRA 01/06/23 09:45 IMPRESSION: 4 mm anterior communicating artery aneurysm. No evidence for large vessel occlusion. Electronically Signed: Ruchi Pathak MD at 11:56 EDT , ADDENDUM: 01/06/23 1313 IMPRESSION: 4 mm anterior communicating artery aneurysm. No evidence for large vessel occlusion. N.B. : Susanne Torres RN, confirmed on 01/06/2023 13:06:42 (ET) that the healthcare facility has received the radiology report. Electronically Signed: Ruchi Pathak MD at 11:56 EDT Reading Location ID and State: [id number] / [place] Tel , Service support , Neck MRA 01/06/23 09:45 IMPRESSION: No evidence for significant stenosis or occlusion in the vertebral or carotid arteries of the neck. Electronically Signed: Ruchi Pathak MD at 13:06 EDT Reading Location ID and State: [place] / [place] Tel , Service support , Physical Exam Const alert, oriented x3, no apparent distress, average body habitus and healthy appearing General Appearance: cooperative, well kempt and well developed Orientation / Consciousness: awake, oriented to person, oriented to place and oriented to time HEENT normocephalic, head/scalp atraumatic and moist oral mucous membranes Eyes PERRL, EOMs intact bilaterally and conjunctivae normal Neck supple, no JVD, thyroid normal and no carotid bruits General: trachea midline Resp normal respiratory effort, no retractions, no use of accessory muscles and clear to auscultation bilaterally Auscultation: Negative for rales, rhonchi or wheezes Cardio regular rate, regular rhythm, S1 normal heart sound, S2 normal heart sound, no murmurs, no rub and no gallops GI normal to inspection, nondistended, normoactive bowel sounds, soft to palpation, non-tender and non-distended Extremity no clubbing, cyanosis or edema Skin no rashes or lesions noted General Skin Exam: no breakdown Neuro oriented x3, CN's II-XII intact bilaterally and no focal motor deficits Neuro Narrative: There is decreased sensation over the patient's hands to light touch, no upper extremity weakness was noted Sensorium / Orientation: awake, alert, oriented to person, oriented to place and oriented to time Speech: speech normal Psych affect normal Assessment & Plan Assessment/Plan (1) Difficulty walking: PLAN: Plan 1. Ataxia-etiology unclear at this point, patient will undergo an MRI of the neck without contrast, additional lab testing was ordered at the direction of teleneurology. #2 Paresthesias of the upper extremities-etiology unclear, again additional testing was ordered, I will cancel the patient's echocardiogram and NIH scores. #3 essential hypertension-patient will remain on lisinopril Total clinical time spent by myself addressing the patient's medical issues, reviewing all of his data, and collaborating with patient's care team: 35 minutes Charges/Coding Visit Charges Inpatient E&M: 52911 Subs Hosp L2
[2023-01-06 17:57] LABS: Erythrocyte Sedimentation Rate 20 mm/hr (0-20)
[2023-01-06 18:27] LABS: Thyroid Stim Hormone (TSH) 5.27 uIU/mL (0.358-3.74)
[2023-01-06 18:31] LABS: Homocysteine 10.1 umol/L (3.2-10.7)
[2023-01-06] MEDS: 0.9% Saline Lock 10 ML Syringe IV (20:54)
[2023-01-06] MEDS: Lisinopril 10 MG Tablet PO (20:54)
[2023-01-06] MEDS: Thiamine Hydrochloride 100 MG Tablet 500 MG PO (20:56)
[2023-01-06] MEDS: Temazepam 15 MG Capsule 30 MG PO (22:39)
[2023-01-07 03:30] VITALS: BP 130/88; PULSE 64; RESP 18; TEMP 36.9; O2SAT 94
[2023-01-07] MEDS: Thiamine Hydrochloride 100 MG Tablet 500 MG PO ×3 (06:13→22:37)
[2023-01-07 08:19] VITALS: O2SAT 97
[2023-01-07 08:42] VITALS: BP 139/95; PULSE 70; RESP 16; TEMP 36.4; O2SAT 97
[2023-01-07] MEDS: Aspirin 81 MG TAB.CHEW PO (08:55)
[2023-01-07] MEDS: Folic Acid 1 MG Tablet PO (08:55)
[2023-01-07] MEDS: Enoxaparin 40 MG/0.4 ML Syringe SC (08:56)
[2023-01-07] MEDS: Lisinopril 10 MG Tablet PO (08:56)
--- NOTE | 2023-01-07 10:00 | MRI_ITS ---
We are attempting to reach an attending provider to discuss findings. An addendum with communication details will be sent when the communication is complete. STUDY: MRI CERVICAL SPINE WITHOUT CONTRAST REASON FOR EXAM: Male, 62 years old. Hand paraphemias, dizziness, weakness TECHNIQUE: Standardized fat and water weighted pulse sequences were obtained in the sagittal and axial planes. COMPARISON: None FINDINGS: Normal foramen magnum and brainstem-cervical cord junction. Normal craniovertebral junction. Normal anterior atlantoaxial articulation. Tapered narrowing of the odontoid process vertebral marrow due to degenerative sclerosis around the odontoid process. Normal cervical lordosis. Normal vertebral bodies and posterior osseous elements. C2-3: Normal endplates. Normal disc height, signal and morphology. Normal central canal and intervertebral neural foramina. Moderate right degenerative facet arthropathy. C3-4: Normal endplates. Mild disc space height narrowing. No ventral extradural defect. Normal central canal and intervertebral neural foramina. C4-5: Normal endplates. Normal disc height and morphology. No ventral extradural defect. Normal central canal and right intervertebral neural foramen. Moderate stenosis of the left intervertebral neural foramen due to moderate left degenerative facet arthropathy. C5-6: Normal endplates. Moderate disc space height narrowing. Schmorl''s node in the posterior C5 inferior endplate. Prominent posterior marginal bone spur with spinal cord compression. This is also causing pronounced central canal stenosis with an AP canal diameter of 4.3 mm. Pronounced stenosis of the left intervertebral neural foramen and mild stenosis of the right intervertebral neural foramen. C6-7: Mild Modic type II degenerative vertebral marrow fat infiltration underneath the vertebral endplates. Mild disc space height narrowing. Mild ventral extradural defect due to small posterior bulging annulus. Mild central canal stenosis with an AP canal diameter of 6.6 mm. Moderate stenosis of the right intervertebral neural foramen and mild stenosis of the left intervertebral neural foramen. C7-T1: Normal endplates. Normal disc height, signal and morphology. Normal central canal and intervertebral neural foramina. T1-T2, T2-T3 and T3-T4: (Sagittal only). Normal endplates. Normal disc height, signal and morphology. Normal central canal and intervertebral neural foramina. T4-T5: (Sagittal only). Modic type II degenerative vertebral marrow fat infiltration underneath the vertebral endplates. Mild disc space height narrowing. No ventral extradural defect. Normal central canal and intervertebral neural foramina. Abnormal intramedullary signal intensity of the spinal cord from the lower C5 vertebral body level down to the mid C6 vertebral body level. This is suspiciously due to spinal cord compression by the large bone spur. Normal upper thoracic spinal cord. Normal included portions of the brainstem and cerebellum. Normal visualized soft tissue structures. MRI/Spine Cervical (Routine) IMPRESSION: Spinal cord compression at C5-C6 disc space level due to large bone spur with abnormal intrinsic signal abnormality of the cervical spinal cord from the lower C5 down to the mid C6 vertebral body level. In my opinion, this is most likely due to cord contusion. Electronically Signed: Jordan Martínez MD at 12:05 EDT ,
[2023-01-07] MEDS: Acetaminophen 325 MG Tablet 650 MG PO (11:47)
--- NOTE | 2023-01-07 14:05 | PN.HOSP_ITS ---
Reason for Visit Reason for Visit: Diagnoses Alcohol dependence, uncomplicated (01/05/23) Anesthesia of skin (01/05/23) Paresthesia of skin (01/05/23) Difficulty in walking, not elsewhere classified (01/05/23) Ataxia, unspecified (01/05/23) Subjective Subjective Patient was seen and examined today, an MRI of the cervical spine was obtained which was abnormal showing spinal cord compression at C5-C6 disc base level due to a large bone spur with abnormal intrinsic signal abnormality of the cervical spinal cord from the lower C5 down to the mid C6 vertebral body level, it was question that the patient had cord contusion. I went over these results with the patient and his significant other and some family members who are in the room at the time I went over the results, patient would like to be transferred to another facility for neck surgery, they are going to talk about it and let me know which facility that I will attempt to transfer to. Objective Data Objective Data Vital Signs: Vital Signs Temp Pulse Resp BP Pulse Ox O2 Del Method 97.5 F L 70 16 139/95 H 97 Room Air 01/07/23 08:42 01/07/23 08:42 01/07/23 08:42 01/07/23 08:42 01/07/23 08:42 01/07/23 08:42 Oxygen Delivery Method Room Air Weight: 75.7 kg Body Mass Index (BMI) 28.6 Intake & Output: Intake and Output for Last 24 Hours 01/05/23 01/06/23 01/07/23 23:59 23:59 23:59 Intake Total 1000 / 1000 480 / 480 Output Total 0 / 0 Balance 1000 / 1000 480 / 480 Lab / Micro Data Result Diagrams: 01/06/23 04:50 01/06/23 04:50 Labs: Laboratory Results - last 24 hr 01/06/23 17:42: ESR 20 01/06/23 17:42: TSH 5.27 H, Thyroxine (T4) 9.0 01/06/23 17:42: Vitamin B12 Cancelled 01/06/23 17:42: Homocysteine 10.1 Radiography Diagnostic Testing: Radiology Impression Cervical Spine MRI 01/07/23 10:00 IMPRESSION: Spinal cord compression at C5-C6 disc space level due to large bone spur with abnormal intrinsic signal abnormality of the cervical spinal cord from the lower C5 down to the mid C6 vertebral body level. In my opinion, this is most likely due to cord contusion. Electronically Signed: Jordan Martínez MD at 12:05 EDT , ADDENDUM: 01/07/23 1234 IMPRESSION: Spinal cord compression at C5-C6 disc space level due to large bone spur with abnormal intrinsic signal abnormality of the cervical spinal cord from the lower C5 down to the mid C6 vertebral body level. In my opinion, this is most likely due to cord contusion. N.B. : The above Results were Read Back by Jordan Martínez MD to Jordan Ignacio RN, and understanding confirmed on 01/07/2023 12:27:28 (ET). Electronically Signed: Jordan Martínez MD at 12:05 EDT , Physical Exam Const alert, oriented x3, no apparent distress and average body habitus General Appearance: cooperative, well kempt and well developed Orientation / Consciousness: awake, oriented to person, oriented to place and oriented to time HEENT normocephalic, head/scalp atraumatic and moist oral mucous membranes Eyes PERRL, EOMs intact bilaterally and conjunctivae normal Neck supple, no JVD, thyroid normal and no carotid bruits General: trachea midline Resp normal respiratory effort, no retractions, no use of accessory muscles and clear to auscultation bilaterally Auscultation: Negative for rales, rhonchi or wheezes Cardio regular rate, regular rhythm, S1 normal heart sound, S2 normal heart sound, no murmurs, no rub and no gallops GI normal to inspection, nondistended, normoactive bowel sounds, soft to palpation, non-tender and non-distended Extremity no clubbing, cyanosis or edema Skin no rashes or lesions noted General Skin Exam: no breakdown Neuro oriented x3, CN's II-XII intact bilaterally and moves all extremities Sensorium / Orientation: awake and alert Speech: speech normal Psych affect normal Assessment & Plan Assessment/Plan (1) Ataxia: (2) Difficulty walking: PLAN: Plan 1.? Ataxia-probably secondary to cervical spinal cord compression, patient will need transfer to a tertiary facility, he does not want to have any surgery done here. Patient will let me know his decision this afternoon. #2? Paresthesias of the upper extremities-secondary to cervical spinal cord co mpression C5-C6, again patient will need to be transferred to another facility, he will let me know his decision today #3 essential hypertension-patient will remain on lisinopril Clinical time spent by myself addressing patient's medical issues, reviewing all of his data, and collaborating with patient's care team: 35 minutes Charges/Coding Visit Charges Inpatient E&M: 15060 Subs Hosp L2
[2023-01-07 14:42] VITALS: BP 142/102; PULSE 69; RESP 16; TEMP 36.4; O2SAT 96
[2023-01-07 15:23] VITALS: BP 141/90
[2023-01-07] MEDS: dexAMETHasone 4 MG/ML Vial IV (18:56)
[2023-01-07 20:42] VITALS: BP 159/97; PULSE 82; RESP 16; TEMP 37; O2SAT 98
[2023-01-08] MEDS: Acetaminophen 325 MG Tablet 650 MG PO (01:14)
[2023-01-08] MEDS: dexAMETHasone 4 MG/ML Vial IV (01:14)
[2023-01-08] MEDS: Temazepam 15 MG Capsule 30 MG PO (01:14)
[2023-01-08] MEDS: 0.9% Saline Lock 10 ML Syringe IV (01:14)
[2023-01-08 02:03] VITALS: BP 148/100; PULSE 92; RESP 18; TEMP 36.6; O2SAT 90
[2023-01-08 09:06] LABS: Vitamin B12 246 pg/mL (211-911)
[2023-01-09 15:08] LABS: Albumin 3.7 g/dL (2.9-4.4); Alpha-1-Globulins 0.3 g/dL (0.0-0.4); Alpha-2-Globulins 0.9 g/dL (0.4-1.0); Gamma Globulin 0.7 g/dL (0.4-1.8); Immunoglobulin A 140 mg/dL (90-386); Immunoglobulin G 829 mg/dL (603-1613); Immunoglobulin M 43 mg/dL (20-172); PROEL- TOTAL PROTEIN 6.5 g/dL (6.0-8.5)
[2023-01-12 20:07] LABS: Anti-Centromere B Ab <0.2 AI (0.0-0.9); Anti-Chromatin <0.2 AI (0.0-0.9); Anti-Jo <0.2 AI (0.0-0.9); Anti-Scleroderma-70 AB <0.2 AI (0.0-0.9); Anti-dsDNA Ab <1 IU/mL (0-9); Methylmalonic Acid Bld 274 nmol/L (0-378); RNP Ab <0.2 AI (0.0-0.9); SJOGREN'S Anti-SS-A test < 0.2 AI (0.0-0.9); SJOGREN'S Anti-SS-B test < 0.2 AI (0.0-0.9); Smith Ab <0.2 AI (0.0-0.9)
== END 2023-01-08 02:06 | disposition short-term general hospital (02) ==
LOC: ED 19:52 → PCU 20:06
PROVIDERS: Admitting Provider Hospitalist; Emergency Provider Emergency Medicine; PCP Physician Assistant; Referring Provider Emergency Medicine; Visit Provider Internal Medicine
DX: G95.20 Unspecified cord compression (principal); F10.20 Alcohol dependence, uncomplicated; R27.0 Ataxia, unspecified; R20.2 Paresthesia of skin; M54.2 Cervicalgia; F41.9 Anxiety disorder, unspecified; M77.9 Enthesopathy, unspecified; R42 Dizziness and giddiness; R51.9 Headache, unspecified; R20.0 Anesthesia of skin; R53.1 Weakness; Z87.891 Personal history of nicotine dependence; I10 Essential (primary) hypertension; Z79.899 Other long term (current) drug therapy
CPT/HCPCS: 36415; 70450; 70544; 70547; 70551; 72141; 80048; 80053; 80061; 81001; 82607; 82784; 83036; 83090; 83921; 84165; 84436; 84443; 85025; 85610; 85652; 85730; 86225; 86235; 86334; 94762; 96361; 96372; 96374; 96376; 97110; 97116; 97162; 97166; 99221; 99285; J7030; A4216; G0378

== ENCOUNTER 2023-06-11 12:30 | Outpatient (RCR) | payer OTHER, SELFPAY ==
--- NOTE | 2023-03-18 15:57 | HP.PTEVAL ---
Patient's Visit Information Visit Information Visit Information: MOISES FERREIRA is a 62 year old M referred to Physical Therapy by DREAD VARELA with a diagnosis of ACDF C5-C7 January 10. 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 Now a little over 9 weeks over. He went to [place] a week and a half ago and they released him to do therapy. He is feeling okay- he still feels very unstable. He has a 20# lifting restriction and can't feel his hands. He is OT for his hands and upper body strength and in PT for his lower body strength and balance. He is in phase 2 of the rehab process- according to protocol. He does intermittent back pain due to inactivity. It goes goes away after he gets up from sleeping. He had no issues prior to the incidence- now he feels unstable when he is standing. He is dizzy when he gets out of bed but if he sits for a minute the dizziness goes away. No dizziness when she moving just feels unsteady. No AD prior- now uses a walking stick all the time partially due to his wifes concerns. No falls- but has had some stumbles. No changes with lighting. Does have weakness but not one sided more than the other- lost 20 lbs. Can do stairs-slowly- but has not tried a flight of stairs. Does his own dressing and bathing. He has not been cleared to drive but he drives a golf cart and tractor. Goals get back to being fully indep. 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 PMHx/Meds: no changes since at [facility] ED Objective Objective: Posture: FH, RS can correct but does not maintain Gait: wide base of support- hiking stick- circumduction bilateral HR/TR: able with UE A SLS: weight shift but unable to SLS Tandem Stance: able to achieve but unable to maintain more than 5 seconds without increased sway Stairs: asc/desc 8 recip with 2 HR- desc poor control with foot placement ROM: WFL in all planes Strength: Core: fair, Hip: Flexion: 4-/5, Abd: 4+/5, Add: 4+/5, Extn: 4/5, IR/ER: 4/5, Knee: 5/5, Ankle: 5/5 Sensation: WNL to gross touch bilateral Balance/Special Test Scores Functional Gait Assessment Score: 13 % Disability: 56.6700 CATSIB Score (Max score 120 seconds): 100 Lower Extremity Functional Score: 11 Goals Goal 1:: Patient will be I with HEP and progression Goal Time Frame: 4-6 Weeks Goal 2:: Patient will ambulate >300 feet with LRD and a normalized gait pattern Goal Time Frame: 4-6 Weeks Goal 3:: Patient will balance for 30 sec with eyes closed on foam without loss of balance Goal Time Frame: 4-6 Weeks Goal 4:: Patient will asc/desc 8 stairs recip with 1 HR Goal Time Frame: 4-6 Weeks Goal 5:: Patient will report 80% improvement Goal Time Frame: 4-6 Weeks Rehabilitation Potential Physical Therapy Diagnosis: Patient presents with hypomobility- he has decreased LE and core strength/stabilization, proprioception, flex and muscular endurance leading to poor balance and decreased ability to perform ADL's. Rehabilitation Potential: Good Anticipated Interventions Patient/Client Instruction: Educate patient on: Benefits of Fitness Program Therapeutic Exercise to Include: Strength training, Endurance training, Balance training, Coordination, Agility training, Body mechanics, Postural training, Flexibilty training, Gait and locomotor training, Neuromotor development, Dynamic Lumbar Stabilization and Scapular Strength/Stabilization For the Purpose of:: To improve muscle performance and motor function Text: Thank you for the opportunity to evaluate your patient. For Medicare and Medicare HMO plans, please review the plan of care and approve it. It will need to be FAXED BACK to us at [phone] for Medicare purposes. For Medicare only, by signing this I certify the plan of care. Please let me know if there are questions or concerns regarding this plan of care. Physician Signature: Date:
--- NOTE | 2023-04-10 12:54 | HP.PTREVAL_ITS ---
Re-Evaluation Intro: DREAD VARELA, It has been my pleasure to treat MOISES FERREIRA over the last 9 visits for ACDF C5-C7 January 10. Please see the progress note below for an update on the physical therapy plan of care! Subjective Subjective: Patient reports that he is better- he still feels wobbly- but he does feel less wobbly. He is still having dizziness in the AM when he gets up in the AM- saturday he is going to the neurologist. He is not taking the cane when he is outside. He has only fallen 1x and it was 3-4 weeks ago and he didn't fall all the way down just fell sideways and caught himself. He feels that he is 50-60% better. He still feels that he wants to build his legs and stability. He does not feel safe going back to work. He does still have some back pain that comes and goes- he does have some stretching and that helps. Objective Objective/Function: Posture: fair throughout Gait: slightly ataxic- single point cane when tired HR/TR: able with UE A SLS: 3-5 seconds bilaterally Tandem Stance: able to achieve but unable to maintain more than 5 seconds without increased sway Stairs: asc/desc 8 recip with 1 HR- desc poor control with foot placement ROM: WFL in all planes Strength: Core: fair, Hip: Flexion: 4/5, Abd: 4+/5, Add: 4+/5, Extn: 4/5, IR/ER: 4/5, Knee: 5/5, Ankle: 5/5 Sensation: WNL to gross touch bilateral Plan Plan Plan: 04/10/23: Continue with current POC 2x a week for 4 weeks- increase to 60 min apts Gait, Proprioception, Functional Mobility HEP Given IE: HR/TR, seated marching, standing marching, weight shift, Neutral spine core stability Balance/Gait/Functional tests Balance/Special Test Scores Functional Gait Assessment Score: 20 % Disability: 33.3400 CATSIB Score (Max score 120 seconds): 100 Lower Extremity Functional Score: 34 Goals Goals Goal 1:: Patient will be I with HEP and progression Goal Time Frame: 4-6 Weeks Goal Progress: Progressing Goal 2:: Patient will ambulate >300 feet with LRD and a normalized gait pattern Goal Time Frame: 4-6 Weeks Goal Progress: Progressing Goal 3:: Patient will balance for 30 sec with eyes closed on foam without loss of balance Goal Time Frame: 4-6 Weeks Goal Progress: Progressing Goal 4:: Patient will asc/desc 8 stairs recip with 1 HR Goal Time Frame: 4-6 Weeks Goal Progress: Goal Met Goal 5:: Patient will report 80% improvement Goal Time Frame: 4-6 Weeks Goal Progress: Progressing Anticipated Interventions Anticipated Interventions Patient/Client Instruction: Educate patient on: Benefits of Fitness Program Therapeutic Exercise to Include: Strength training, Endurance training, Balance training, Coordination, Agility training, Body mechanics, Postural training, F lexibilty training, Gait and locomotor training, Neuromotor development, Dynamic Lumbar Stabilization and Scapular Strength/Stabilization For the Purpose of:: To improve muscle performance and motor function Re-Evaluation Ending Re-evaluation ending: Please do not hesitate to contact me at [phone] by phone or if you have questions or concerns regarding this new plan of care! Sincerely, Ariane Figueroa DPT
--- NOTE | 2023-04-11 10:04 | HP.OTREVAL ---
Re-Evaluation Intro: DREAD VARELA, It has been my pleasure to treat MOISES FERREIRA over the last 8 visits for cervical spinal fusion. Please see the progress note below for an update on the occupational therapy plan of care! Subjective Subjective: Pt continues to voice numbness and strength as most concerning Light night felt the crawling feeling Pt is getting weights Pt state tightness in hands Picking up grocery bags painful, dexterity Objective Objective/Function: Pt able to make a full fist with both hands MCP R hand 21 cm L 21cm eval R hand 21.5cm L hand 22 cm R PIP IF 7.3cm MF 7.5cm RF 7.1cm L PIP IF 7.3cm MF 7.3cm RF 7.1cm LF 6.2 cm eval R PIP IF 7.5 MF 6.2 cm L PIP IF 7.5 MF 8 RF 7.5 cm LF 6.2cm Strength Block Press Operator R 40# L 36# eval R 30# L 27# Lateral R 8# L 10# eval R 8# L 8# Tripod R 7# L 8# eval R 7# L 5# Shoulder strength with Fet (pounds per pressure) R MMT 3+/5 L MMT 4/5 R 18.6#/11.6# L 19.2#/15.7# Elbow strength with Fet (pounds per pressure) R MMT 4/5 L MMT 3+/5 R 20.6#/26.6# L 16.3#/22# R 18.6# Plan Plan Frequency: 1-2x /Week Duration: 2 Months Visits in this POC: (No limit- Med iván) 2 months (1-2x week) Plan: continue with PRE as pt tolerated to increase functional strength and Fine motor skills. Goals Goals Patient Goals: Regain Mobility, Regain Strength, Decrease Pain, Decrease Swelling/Stiffness, Improve Fine Motor Skills, Use Hand/Wrist/Arm Normally Again, Decrease Tingling/Numbness, Increase ROM, Be More Independent in ADLS, Resume Former Household Responsibilities (Cooking,Cleaning,Yard, etc.) and Resume Hobbies Goal:PIP Circumferences equal to unaffected hand: Yes Goal:Full use of affected hand in daily activities including work: Yes Goal:Improvement in sensation documented by [place]Christiano monofiliaments: Yes Other Goal: Pt to demo overall increased indep in ADL/IADL tasks by decreased total DASH score by 10 points by discharge. Pt will demo understanding of HEP of desensitization and sensory re-education by discharge. Pt will demonstrate increased L shoulder flexion and abduction strength MMT 4/5 by discharge. Pt will demonstrate increased R shoulder abduction strength MMT 4/5 by discharge. Pt will demonstrate increase in lateral/tripod computer hardware designer strength by 10# each respectively by discharge. Anticipated Interventions Anticipated Interventions Anticipated Interventions: Strengthening, Edema Control, Desensitization, Sensory Retraining, Joint Protection/Energy Conservation, Ergonomic Education, Fine Motor Coord/Will, Neuro Reeducation, Education re assistive Equipment, Education re Diagnosis, Education re Skin Care and Precautions and Home Program Re-Evaluation Ending Re-evaluation ending: Please do not hesitate to contact me at [phone] by phone or if you have questions or concerns regarding this new plan of care! Sincerely, Arabella Diaz, KATARINAR/Suad, CHT
--- NOTE | 2023-05-14 13:30 | HP.PTREVAL_ITS ---
Re-Evaluation Intro: DREAD VARELA, It has been my pleasure to treat MOISES FERREIRA over the last 16 visits for ACDF C5-C7 January 10. Please see the progress note below for an update on the physical therapy plan of care! Subjective Subjective: Patient reports that he still feels that he is a little unsteady. He feels that he feels the most uncomfortable on uneven surfaces. He is doing okay with stairs as long as he has a handrail. He is using a cane 20% of the day- in termittently. He feels that he is 70% back to his normal. He feels that he has come a long way. He feels that needs continued therapy- and his MD feels that he also needs to continue PT. Patient reports that he has not had any dizziness since last visit and is doing really well with that piece of the puzzle. He saw his MD for his knees and they said they are bone one bone and he is not having them replaced so he is going to leave them alone. Pain level today in knees 2/10. No Falls. He was written off work until Aug. Objective Objective/Function: Posture: fair throughout Gait: slightly ataxic- single point cane when tired HR/TR: able with UE A SLS: 3-5 seconds bilaterally Tandem Stance: able to achieve but unable to maintain more than 5 seconds without increased sway Stairs: asc/desc 8 recip with 1 HR- ROM: WFL in all planes Strength: Core: fair, Hip: 5/5 throughout Knee: 5/5, Ankle: 5/5 Sensation: WNL to gross touch bilateral Transfers: sit to stand: no UE A Plan Plan Plan: 05/14/23: PT 2x a week for 6 weeks- 2 week for 60 min to progress gym program to I then 30 min for 4 weeks for balance and functional mobility Balance/Gait/Functional tests Balance/Special Test Scores Functional Gait Assessment Score: 23 % Disability: 23.3400 CATSIB Score (Max score 120 seconds): 100 Lower Extremity Functional Score: 39 Tug Test: <10 sec.=free mobile Goals Goals Goal 1:: Patient will be I with HEP and progression Goal Time Frame: 4-6 Weeks Goal Progress: Progressing Goal 2:: Patient will ambulate >300 feet with LRD and a normalized gait pattern Goal Time Frame: 4-6 Weeks Goal Progress: Progressing Goal 3:: Patient will balance for 30 sec with eyes closed on foam without loss of balance Goal Time Frame: 4-6 Weeks Goal Progress: Progressing Goal 4:: Patient will asc/desc 8 stairs recip with 1 HR Goal Time Frame: 4-6 Weeks Goal Progress: Goal Met Goal 5:: Patient will report 80% improvement Goal Time Frame: 4-6 Weeks Goal Progress: Progressing Anticipated Interventions Anticipated Interventions Patient/Client Instruction: Educate patient on: Benefits of Fitness Program Therapeutic Exercise to Include: Strength training, Endurance training, Balance training, Coordination, Agility training, Body mechanics, Postural training, Flexibilty training, Gait and locomotor training, Neuromotor development, Dynamic Lumbar Stabilization and Scapular Strength/Stabilization For the Purpose of:: To improve muscle performance and motor function Re-Evaluation Ending Re-evaluation ending: Please do not hesitate to contact me at [phone] by phone or if you have questions or concerns regarding this new plan of care! Sincerely, Ariane Figueroa DPT
--- NOTE | 2023-05-14 14:11 | OTREVAL_ITS ---
Re-Evaluation Intro: DREAD VARELA, It has been my pleasure to treat MOISES FERREIRA over the last 15 visits for cervical spinal fusion. Please see the progress note below for an update on the occupational therapy plan of care! Subjective Subjective: pt arrives to OT session- from PT- pt will continue with physical therapy for balance. 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 pt works at [employer] pt states he will try to return after Aug. pt states his job will not have him back until he has full feeling in his hands. pt states he still has his 30# lifting restriction. Objective Objective/Function: right booster pump oiler strength 55# increase from 30# left booster pump oiler strength 60# increase from 27# right lateral pinch 14# increase from 8# left lateral pinch 12# increase from 8# right tripod pinch 10# increase from 7# left tripod pinch 10# increase from 5# pt states tingling is constant and right LF that is getting caught and cant tell where it is in place- monofilament right thumb 3.84 initial 3.22 left thumb 4.08 initial 3.81 right IF 4.08 initial 3.61 Left 4.08 initial 3.61 right MF 4.74 initial 4.31 left 4.56 initial 3.84 right RF 4.74 initial 4.74 left 4.31 initial 4.08 right LF 4.74 initial 4.74 left 4.31 initial 4.74 R-9HPT: 38.77, 29.46 L-9HPT: 35.94, 30.75 pt is making gains with his strength and would benefit from further skilled OT services to increase UB strength. We will continue with 30# lift restriction until this is released. possibly next ortho session. Sensation has made some gains but still demo with time study observer sensory deficits. Plan Plan Frequency: 1x/Week Duration: 3 Weeks Visits in this POC: (No limit- Med iván) 2 months (1-2x week) Plan: pt to be seen 1x week for next 3 weeks to initiate t-band HEP than put on hold until his 30# lifting restriction is lifted (possibly Nov) Goals Goals Patient Goals: Regain Mobility, Regain Strength, Decrease Pain, Decrease Swelling/Stiffness, Improve Fine Motor Skills, Use Hand/Wrist/Arm Normally Again, Decrease Tingling/Numbness, Increase ROM, Be More Independent in ADLS, Resume Former Household Responsibilities (Cooking,Cleaning,Yard, etc.) and Resume Hobbies Goal:: pt will demo increase in bilateral booster pump oiler strength by 10# or more to increase pts ind.with ADLs and IADLs by D/C. pt will demo increase in the ability to lift 15# with good ability and good lifting mechanics by d/c. Goal:PIP Circumferences equal to unaffected hand: Yes Goal:Full use of affected hand in daily activities including work: Yes Goal:Improvement in sensation documented by [place]-Christiano monofiliaments: Yes Other Goal: Pt to demo overall increased indep in ADL/IADL tasks by decreased total DASH score by 10 points by discharge. Pt will demo understanding of HEP of desensitization and sensory re-education by discharge. Pt will demonstrate increased L shoulder flexion and abduction strength MMT 4/5 by discharge. Pt will demonstrate increased R shoulder abduction strength MMT 4/5 by discharge. Pt will demonstrate increase in lateral/tripod booster pump oiler strength by 10# each respectively by discharge. Anticipated Interventions Anticipated Interventions Anticipated Interventions: Strengthening, Edema Control, Desensitization, Sensory Retraining, Joint Protection/Energy Conservation, Ergonomic Education, Fine Motor Coord/Will, Neuro Reeducation, Education re assistive Equipment, Education re Diagnosis, Education re Skin Care and Precautions and Home Program Re-Evaluation Ending Re-evaluation ending: Please do not hesitate to contact me at [phone] by phone or if you have questions or concerns regarding this new plan of care! Sincerely, LULU Ellison/Suad, CHT
== END 2023-06-11 19:00 | disposition home or self-care (01) ==
LOC: PT 12:30
PROVIDERS: PCP Physician Assistant
DX: Z98.1 Arthrodesis status (principal); Z98.890 Other specified postprocedural states; R20.2 Paresthesia of skin
CPT/HCPCS: 97110; 97162; 97164; 97166; 97530

== ENCOUNTER 2024-04-19 21:36 | Emergency (ER) | payer OTHER, SELFPAY ==
[2024-04-19 21:37] VITALS: BP 162/100; PULSE 72; RESP 15; TEMP 36.4; O2SAT 96; BMI 29.2
--- NOTE | 2024-04-19 22:06 | EDS_ITS ---
HPI History of Present Illness Chief Complaint: Laceration Narrative Narrative: 63-year-old male presents with his with injury to his left ear/earlobe that he sustained just prior to arrival. He has past medical history of difficulty walking and ataxia regardless. He was walking this evening and fell and hit his left ear on an old piece of wood. He denies taking blood thinners, no loss of consciousness, no current neck pain. He is here because he states he needs stitches in his earlobe. His last tetanus immunization has been within the last 10 years. He denies other injuries. [facility] Medical History Hypertension Back pain with history of spinal surgery Home Medications ?Medication ?Instructions ?Recorded ?Last Taken ?Type lisinopril 10 mg tablet 10 mg PO DAILY 01/05/23 Unknown History bupropion HCl 300 mg 24 hr tablet, 300 mg PO DAILY 04/19/24 Unknown History extended release (Wellbutrin XL) gabapentin 300 mg capsule 300 mg PO QHS 04/19/24 Unknown History Allergy/AdvReac Type Severity Reaction Status Date / Time No Known Allergies Allergy Verified 04/19/24 21:39 Family History Other Anxiety Colon cancer Depression Heart disease Surgical History H/O knee surgery Social History Smoking Status: Never smoker alcohol intake: former details: Drinking alcohol 2 weeks ago ROS ROS ED ROS Narrative Review of systems positive for left earlobe laceration. Denies headache. No neck pain. No paresthesias. No other injuries. EXAM Physical Exam Narrative Exam Narrative: GCS 15. ABCs are intact. Neck soft and supple without vertebral point tenderness or bony step-off. PERRL, EOMI. Cardiovascular examination regular rate and rhythm. Lungs clear to auscultation bilaterally. Abdomen soft and nontender with normal active bowel sounds. Neurological examination is nonfocal and nonlateralizing. Inspection of the left earlobe does show an avulsion to the posterior portion of the earlobe. I question the vascular supply to this avulsion skin. There is a 1 cm laceration noted at the connection of the earlobe to the neck/scalp, no active bleeding. Const Vital Signs: 04/19/24 21:37 04/19/24 23:33 Temperature 97.6 F L 97.7 F L Temperature Source Temporal Pulse Rate 72 90 Respiratory Rate 15 18 Blood Pressure 162/100 H 147/98 H Blood Pressure Mean 120 114 Pulse Ox 96 97 Oxygen Delivery Method Room Air PROC Procedures Lacerations Left earlobe: Length: 0.98 in Depth: Skin Shape: Stellate (Irregular with areas of skin avulsion) Prep: Sterile Conditions and Shure-Clens Laceration repair: Irrigated, Lidocaine (1%), Local and Wound explored (No noted splinters or foreign bodies) Number of Sutures/Huong: 9 Suture Information: Ethilon and 5-0 Comment: Patient tolerated procedure well. Hemostasis achieved. MDM MDM MDM Narrative Medical decision making narrative: Patient was told of the risk of infection and scarring and acknowledges an understanding. I also told him I would tack down the avulsed skin but there is a possibility that there is no good blood supply to this. His wound will be cleansed. The 2-1/2 cm irregular laceration with skin avulsion was closed using a total of 9 simple interrupted sutures with 5.0 Ethilon. See procedure note for details. He was able to tolerate the skin closure. He will follow-up with his primary care provider and/or plastic surgery in 7 to 10 days for suture removal. He is to look for signs of infection. Return instructions to the emergency department were reviewed. Disposition is discharged home in stable condition. Discharge Plan Triage Chief Complaint: Laceration ED Provider: Jordan Nix Dx/Rx/DC Orders Clinical Impression: Ear lobe laceration Instructions: ED Laceration, All Closures Prescriptions: No Action lisinopril 10 mg tablet 10 mg PO DAILY Patient Comments: TAKE 1 TABLET BY MOUTH EVERY DAY gabapentin 300 mg capsule 300 mg PO QHS bupropion HCl [Wellbutrin XL] 300 mg tablet extended release 24 hr 300 mg PO DAILY Primary Care Provider: Riaz Moe Referrals: Uriel Astudillo MD [Med Staff - Active Staff] - 10 Day for suture removal Roselia Anglin PA [Non-Staff] - Activity Restrictions/Additional Instructions: Follow-up with your primary care provider in 7 to 10 days for suture removal. He can also follow-up with plastic surgery in 7 to 10 days. Return with fever, redness to the area, drainage of pus from wound, new or worsening symptoms. Print Language: German Disposition Disposition: Home, Self Care Discharge Date/Time: 04/19/24 23:41
[2024-04-19] MEDS: Lidocaine 1% (20 ml mdv) 20 ML Vial INFILT (23:32)
[2024-04-19 23:33] VITALS: BP 147/98; PULSE 90; RESP 18; TEMP 36.5; O2SAT 97
== END 2024-04-19 23:41 | disposition home or self-care (01) ==
LOC: ED 23:36
PROVIDERS: Emergency Provider Emergency Medicine; PCP Family Medicine; Visit Provider Emergency Medicine
DX: S01.312A Laceration without foreign body of left ear, initial encounter (principal); I10 Essential (primary) hypertension; W19.XXXA Unspecified fall, initial encounter; Z79.899 Other long term (current) drug therapy
CPT/HCPCS: 12011; 99283

== ENCOUNTER 2024-12-21 21:34 | Inpatient (IN) | payer OTHER, SELFPAY ==
[2024-12-21 21:34] VITALS: BP 130/72; PULSE 88; RESP 17; TEMP 37.7; O2SAT 99; BMI 30.2
[2024-12-21 21:58] LABS: Absolute Lymphocyte Count 1.53 X10^3/uL (0.83-4.51); Basophil# 0.06 X10^3/uL; Basophil% 0.6 % (0-1); Eosinophil# 0.26 X10^3/uL; Eosinophils% 2.4 % (0-5); Hematocrit 39.2 % (40-54); Hemoglobin 13.2 g/dL (13.0-16.5); Lymphocyte # 1.53 X10^3/ul (0.83-4.51); Lymphocyte % 14.3 % (19-41); Mean Corp Hgb Conc 33.7 g/dL (32-36); Mean Corpuscular Hgb 30.3 pg (27.0-32.0); Mean Corpuscular Volume 90.1 fL (80-94); Mean Platelet Vol. 8.5 fl (6.2-12.0); Monocyte# 0.78 X10^3/uL; Monocyte% 7.3 % (0-10); NRBC Flagged by Analyzer 0 % (0-5); Neutrophil % 74.7 % (47-70); Platelet Count 231 K/mm3 (150-450); RBC Distribution Width CV 12.4 % (11.6-14.6); RBC Distribution Width SD 41.1 fl (35.1-43.9); Red Blood Count 4.35 M/mm3 (4.6-6.2); White Blood Count 10.7 K/mm3 (4.4-11.0)
[2024-12-21 22:08] LABS: ALB/GLOB Ratio 1.4 RATIO (0.9-2.4); AST(SGOT) 94 U/L (<=37); Alanine Aminotransfer ALT/SGPT 122 U/L (<=46); Albumin, Serum 4.2 g/dL (3.4-4.8); Alkaline Phosphatase 153 U/L (40-129); Anion Gap 13 (5-15); BUN 13 mg/dL (4-19); BUN/Creat Ratio 15.7 RATIO (10-20); Calcium,Total 9.1 mg/dL (7.6-11.0); Carbon Dioxide 24.6 mmol/L (21.0-32.0); Chloride 99 mmol/L (98-108); Creatinine, Serum 0.83 mg/dL (0.70-1.20); EST Glomerular Filtration Rate 99 (>60); Estimated Creatinine Clearance 88.04 ml/min (50-250); Globulin 3.1 g/dL (2.2-4.2); Glucose 123 mg/dL (70-99); Potassium 3.8 mmol/L (3.3-5.1); Protein, Total 7.2 g/dL (5.9-8.4); Sodium Level 136 mmol/L (133-145); Total Bilirubin 0.65 mg/dL (0.00-1.30)
[2024-12-21 22:20] LABS: Lipase 687 U/L (13-75)
[2024-12-21 23:22] VITALS: BP 102/73; PULSE 82; RESP 15; TEMP 37.5; O2SAT 98
[2024-12-21 23:40] VITALS: BP 124/76; PULSE 74; RESP 18; O2SAT 97
[2024-12-22] VITALS (10 sets, daily range): BP systolic 105–138; BP diastolic 66–80; PULSE 64–81; RESP 16–18; TEMP 36.6–37.4; O2SAT 94–98; BMI 31.2
[2024-12-22 00:07] LABS: Color, Urine Yellow (Yellow); Glucose, Dipstick Normal (Normal); Ketone-Dipstick Negative (Negative); Leukocyte Esterase-Dipstick 25 /ul (Negative); Nitrite-Dipstick Negative (Negative); Occult Blood-Urine 50 /ul (Negative); Protein-Dipstick 100 mg/dl (Negative); Specific Gravity, Urine 1.015 (1.002-1.030); Urine Clarity Sl. Cloudy (Clear); Urine Urobilinogen 8 mg/dl (Normal)
[2024-12-22 00:18] LABS: Urine Bilirubin Dipstick 1 mg/dL (Negative)
[2024-12-22 00:31] LABS: Bacteria 2+ /hpf (None Seen); Mucous, Urine 2+ /hpf (<or=2+); Red Blood Cells-Urine 0-5 SEEN /hpf (0-5); Squamous Epithelial Cells - UA 0-5 SEEN /hpf (0-5); White Blood Cells 0-5 SEEN /hpf (0-5)
[2024-12-22] MEDS: Ondansetron 4 MG/2 ML Vial IV ×2 (00:44→07:59)
[2024-12-22] MEDS: 0.9% Normal Saline (1000mL) 1,000 ML 999 ML IV (00:44)
[2024-12-22] MEDS: HYDROmorphone 0.5 MG/0.5 ML SYRINGE IV (00:45)
--- NOTE | 2024-12-22 00:50 | CT_ITS ---
PROCEDURE: ABDOMEN/PELVIS W IV CONT ONLY 12/22/2024 REASON FOR EXAM: ABD PAIN / ? PANCREATITIS TECHNIQUE: Abdomen and pelvis CT with intravenous contrast. Coronal and Sagittal reconstruction series were provided. PATIENT PREPARATION: Per protocol ORAL CONTRAST TYPE: None. CONTRAST: 97 cc Isovue 370 IV One or more dose reduction techniques were used (e.g., Automated exposure control, adjustment of the mA and/or kV according to patient size, use of iterative reconstruction technique. RADIATION DOSE SUMMARY: CTDlvol: 16.92 mGy DLP: 922.35 mGycm COMPARISON: None available FINDINGS: Mild dependent basilar atelectasis. Right coronary calcification and/or stent. Hepatic steatosis. Tiny low-density foci may represent hepatic cysts and are too small to further characterize. Possible small amount of focal fatty sparing along the gallbladder fossa. Gallbladder contains a couple of small faint stones without evidence of wall thickening, pericholecystic free fluid or adjacent fat stranding. Adrenal glands, kidneys, pancreas and spleen appear within limits. 4 cm ovoid focus at the left upper quadrant between the tail of the pancreas, upper pole left kidney and splenic hilum etiology is unclear. Density measures higher than simple fluid. Unclear if this represents a complex cyst or solid lesion with the organ of origin unclear. Aortoiliac atherosclerotic calcification. No abdominal aortic aneurysm. No adenopathy. No bowel dilation or free air. Diverticulosis without diverticulitis. Normal caliber appendix without secondary signs. The bladder and prostate appear within limits. No free fluid. Right hip osteoarthrosis with possible previous acetabular fracture deformity. Status post L5 laminectomy with L5-S1 osseous fusion, severe appearing L4-5 spondylosis/discogenic change with central and bilateral foraminal narrowing suggested. CT/Abdomen/Pelvis W IV Cont ONLY IMPRESSION: No CT evidence of acute pancreatitis. 4 cm ovoid focus at the left upper quadrant between the tail of the pancreas, u pper pole left kidney and splenic hilum etiology is unclear. Density measures higher than simple fluid. Unclear if this represe nts a complex cyst or solid lesion with the organ of origin unclear. May follow-up with nonemergent multiphasic liver CT or MRI. Right coronary calcification and/or stent. Hepatic steatosis. Diverticulosis without diverticulitis. Reading Location: [id number]
[2024-12-22 01:15] LABS: Alcohol, Blood (Medical)-Serum < 10.1 mg/dL (<=10.0)
--- NOTE | 2024-12-22 01:53 | HP.PCM.HOS_ITS ---
[facility] - General General Date of Admission: 12/22/24 Date of Service: 12/22/24 Chief Complaint: Abdominal Pain. HPI Narrative MOISES ROLLE, is a 64 M with a past medical history of essential hypertension; on lisinopril, obesity: with BMI of 30.2 this admission, chronic EtOH abuse; patient admitting to drinking ~8-10 beers daily for ~30 years, history of ataxia with difficulty walking and tingling in upper extremities; with MRI of the C- spine revealing spinal cord compression at C5-C6 disc base due to large bone spur with abnormal intrinsic signal abnormality of the cervical spinal cord with questionable cord contusion causing patient be transferred to tertiary care center (12/2022), depression with anxiety; on desvenlafaxine plus as needed hydroxyzine 3 times daily and OA; with history of knee and back surgery who presents to [facility] complaining of abdominal pain. Mr. Rolle reports his symptoms began approximately 3 weeks prior to admission with a gradual-onset of progressively worsening abdominal pain. He states the pain is primarily focused in his epigastric region and is dull, [id number], cramping in nature and seems to be made worse by palpation and drinking beer with nothing seeming to make it better so he finally decided to come in for further evaluation and treatment. He admits to nausea but he denies vomiting. There was no reported fever, chills, diarrhea, constipation, chest pain, palpitations, heart racing, shortness of breath, cough, headache or rash. In the ER he was noted to have an elevated serum lipase of 687 units/L suspicious for EtOH Pancreatitis with low-grade Fever of 99.3 ?F and additional laboratory evidence of mild Transaminitis: AST 94 units/L, ALT 122 units/L & alkaline phosphatase 153 units/L with a corresponding CT scan of the abdomen and pelvis with IV contrast that revealed no evidence of acute pancreatitis but did show ~4 cm ovoid focus at the LUQ between the tail of the pancreas, upper pole of the Left kidney and splenic hilum with unclear etiology. Density measures higher than simple fluid. Unclear if this represents complex cyst or solid lesion within the organ of origin with follow-up CT or MRI recommended. In addition to hepatic steatosis and diverticulosis without diverticulitis. He was then admitted to the general medical floor for ongoing care for state that is expected to extend beyond 2 midnights. [facility] Medical History Hypertension Back pain with history of spinal surgery Home Medications ?Medication ?Instructions ?Recorded ?Last Taken ?Type lisinopril 10 mg tablet 10 mg PO DAILY 01/05/23 Unkn own History desvenlafaxine succinate 50 mg 50 mg PO DAILY 12/21/24 Unknown History tablet,extended release 24 hr Allergy/AdvReac Type Severity Reaction Status Date / Time No Known Allergies Allergy Verified 12/21/24 21:35 Family History Other Anxiety Colon cancer Depression Heart disease Surgical History H/O knee surgery Social History Smoking Status: Never smoker alcohol intake: former details: Drinking alcohol 2 weeks ago ROS ROS Narrative Review of Systems: Constitutional: Patient was noted to have low-grade fever of 99.3 ?F present on admission. He denies chills. Eyes: Patient denies changes in vision, hallucinations or discharge from eyes. ENT: Patient denies runny nose, sore throat or ear pain. Resp: Patient denies shortness of breath or cough. CV: Patient denies chest pain, palpitations, heart racing or lower extremity edema. GI: Patient admits to abdominal pain with nausea but denies vomiting as per HPI. : Patient denies dysuria, hematuria, urinary frequency. MSK: Pain patient denies arthralgias or myalgias. Skin: Patient denies rash, abscess, hives or jaundice. Psych: Patient denies any depression or anxiety. Neuro: Patient denies headache, paresthesias or focal neurologic deficits. Allergy: Patient denies lip swelling, tongue pain or urticaria. Hematology: Patient denies easy bleeding or easy bruisability. Endocrinology: Patient denies polyuria, polydipsia, polyphagia or heat/cold intolerance. 14 point ROS otherwise negative except for positives noted above in HPI. Vital Signs Vital Signs Vital Signs: 12/21/24 21:34 12/21/24 23:22 12/21/24 23:40 Temperature 99.8 F H 99.5 F H Temperature Source Oral Oral Pulse Rate 88 82 74 Respiratory Rate 17 15 18 Blood Pressure 130/72 H 102/73 124/76 H Blood Pressure Mean 91 82 92 Pulse Ox 99 98 97 Oxygen Delivery Method Room Air Room Air Room Air 12/22/24 00:00 12/22/24 01:00 Temperature 99.3 F H 99.3 F H Temperature Source Oral Oral Pulse Rate 81 78 Respiratory Rate 18 18 Blood Pressure 119/69 121/77 H Blood Pressure Mean 85 91 Pulse Ox 96 98 Oxygen Delivery Method Room Air Room Air Weight Weight: 176 lb Body Mass Index (BMI) 30.2 Physical Exam Const alert and oriented x3 Constitutional Narrative: Mild distress noted. General Appearance: cooperative HEENT normocephalic, head/scalp atraumatic, hearing grossly normal bilaterally and moist oral mucous membranes Eyes PERRL, EOMs intact bilaterally and conjunctivae normal Neck no lymphadenopathy, supple and no JVD Resp normal respiratory effort, no retractions, no use of accessory muscles and clear to auscultation bilaterally Cardio regular rate and regular rhythm GI soft to palpation and non-distended GI Narrative: Particularly complaining of abdominal pain with tenderness to palpation over the epigastrium. Extremity normal to inspection, full ROM and no clubbing, cyanosis or edema Skin Skin Narrative: Patient has no evidence of rash, abscess, wounds or jaundice. Neuro oriented x3, CN's II-XII intact bilaterally, moves all extremities and no focal motor deficits Sensorium / Orientation: awake, alert, oriented to person, oriented to place and oriented to time Speech: speech normal Psych affect normal Results Medical Records Data Attestation: I reviewed the patient's medical records Lab / Micro Data Attestation: I reviewed the patient's lab results. 12/21/24 21:43 12/21/24 21:43 Labs: Laboratory Results - last 24 hr 12/21/24 21:43: WBC 10.7, RBC 4.35 L, Hgb 13.2, Hct 39.2 L, MCV 90.1, MCH 30.3, MCHC 33.7, RDW Std Deviation 41.1, RDW Coeff of Antony 12.4, Plt Count 231, MPV 8.5, Immature Gran % (Auto) 0.700, Neut % (Auto) 74.7 H, Lymph % (Auto) 14.3 L, [place] % (Auto) 7.3, Eos % (Auto) 2.4, Baso % (Auto) 0.6, Absolute Neuts (auto) 8.0 H, Absolute Lymphs (auto) 1.53, Nucleated RBC % 0, Sodium 136, Potassium 3.8, Chloride 99, Carbon Dioxide 24.6, Anion Gap 13, BUN 13, Creatinine 0.83, Estim Creat Clear Calc 88.04, Est GFR (MDRD) Non-Af 99, BUN/Creatinine Ratio 15.7, Glucose 123 H, Calcium 9.1, Total Bilirubin 0.65, AST 94 H, ALT 122 H, A lkaline Phosphatase 153 H, Total Protein 7.2, Albumin 4.2, Globulin 3.1, Albumin/Globulin Ratio 1.4, Lipase 687 H 12/22/24 00:00: Urine Color Yellow, Urine Clarity Sl. Cloudy, Urine pH 6.0, Ur Specific [place] 1.015, Urine Protein 100 H, Urine Glucose (UA) Normal, Urine Ketones Negative, Urine Occult Blood 50 H, Urine Nitrite Negative, Urine Bilirubin 1 H, Urine Urobilinogen 8 H, Ur Leukocyte Esterase 25 H, Urine RBC 0-5 SEEN, Urine WBC 0-5 SEEN, Ur Squamous Epith Cells 0-5 SEEN, Urine Bacteria 2+, Urine Mucus 2+ 12/22/24 00:47: Ethyl Alcohol < 10.1 Imaging Radiology Impression Abdomen/Pelvis CT 12/22/24 00:50 IMPRESSION: No CT evidence of acute pancreatitis. 4 cm ovoid focus at the left upper quadrant between the tail of the pancreas, upper pole left kidney and splenic hilum etiology is unclear. Density measures higher than simple fluid. Unclear if this represents a complex cyst or solid lesion with the organ of origin unclear. May follow-up with nonemergent multiphasic liver CT or MRI. Right coronary calcification and/or stent. Hepatic steatosis. Diverticulosis without diverticulitis. Reading Location: [facility] Assessment & Plan Assessment/Plan (1) Alcoholic pancreatitis: QUALIFIERS: Acute pancreatitis complication: unspecified C hronicity: acute Qualified Code(s): K85.20 - Alcohol induced acute pancreatitis without necrosis or infection (2) Chronic alcohol abuse: (3) Transaminitis: (4) Abdominal mass, left upper quadrant: (5) Fever: QUALIFIERS: Fever type: unspecified Qualified Code(s): R50.9 - Fever, unspecified (6) Abdominal pain: QUALIFIERS: Abdominal location: epigastric Qualified Code(s): R 10.13 - Epigastric pain (7) Obesity (BMI 30.0-34.9): (8) Depression with anxiety: PLAN: Plan 1. Elevated serum lipase of 687 units/L suspicious for EtOH Pancreatitis with low-grade Fever of 99.3 ?F and additional laboratory evidence of mild Transaminitis: AST 94 units/L, ALT 122 units/L & alkaline phosphatase 153 units/L with a corresponding CT scan of the abdomen and pelvis with IV contrast that revealed no evidence of acute pancreatitis but did show ~4 cm ovoid focus at the LUQ between the tail of the pancreas, upper pole of the Left kidney and splenic hilum with unclear etiology. Density measures higher than simple fluid. Unclear if this represents complex cyst or solid lesion within the organ of origin with follow-up CT or MRI recommended. In addition to hepatic steatosis and diverticulosis without diverticulitis - Admit to general medical floor. Keep strict NPO. Give pantoprazole IV daily. Give ondansetron IV prn nausea and vomiting. Give promethazine IM prn for breakthrough nausea. Give ketorolac IV prn [id number] (level 1-5/10) pain or fever. Give hydromorphone IV prn for severe (level 6-10/10). Check MRCP of the pancreas in the AM as per radiologist's recommendations. Finally, we will consult gastroenterology to see this patient on-rounds in the AM for further recommendations with help appreciated in advance. 2. Chronic EtOH Abuse; patient admitting to drinking ~8-10 beers daily for ~30 years complicating #1 - EtOH Cessation will be strongly encouraged. Give phenobarbital 100 mg IV TID to prevent impending EtOH withdrawal. Place on seizure and aspiration precautions. 3. Obesity: with BMI of 30.2 this admission compounding #1 & #2 - Weight loss will be recommended. Check TSH. This complicates his case and may hamper recovery. 4. Depression with anxiety; on desvenlafaxine plus as needed hydroxyzine 3 times daily adding to the medical complexity of #1 - #3 - Hold oral medications in light of #1. Give hydroxyzine IM as needed for breakthrough symptoms. 5. Essential hypertension; on lisinopril - Hold oral antihypertensives and give prn hydralazine IV prn for systolic blood pressure > 160 mmHg. 6. History of ataxia with difficulty walking and tingling in upper extremities; with MRI of the C-spine revealing spinal cord compression at C5-C6 disc base due to large bone spur with abnormal intrinsic signal abnormality of the cervical spinal cord with questionable cord contusion causing patient be transferred to tertiary care center (12/2022) - Noted. 7. OA; with history of knee and back surgery - We will give IV ketorolac as needed prn as per scale outlined in #1. 8. DVT prophylaxis - SCD's only with impending GI evaluation. Total time: Approximately (but not less than) 75 minutes. Charges/Coding Visit Charges Inpatient E&M: 54238 Init Hosp L3
--- NOTE | 2024-12-22 01:57 | EDS_ITS ---
HPI History of Present Illness Chief Complaint: Abd Pain Informant: patient and spouse/S.O. Narrative Narrative: Patient is a 64-year-old male with history of hypertension who reports roughly 3 weeks of upper abdominal pain associated bouts of loose stool/diarrhea. He denies fevers chills or known sick contacts. He states that he has not been evaluated for his symptoms previously. He reports that the pain seemed to have worsened over the last few days which is why presents at this time. He denies any history of gallbladder dysfunction but states he does drink on average 8-10 beers at night and has done that for roughly 20 to 30 years. He denies any pr evious history of pancreatitis [facility] Medical History Hypertension Back pain with history of spinal surgery Home Medications ?Medication ?Instructions ?Recorded ?Last Taken ?Type lisinopril 10 mg tablet 10 mg PO DAILY 01/05/23 Unkn own History desvenlafaxine succinate 50 mg 50 mg PO DAILY 12/21/24 Unknown History tablet,extended release 24 hr Allergy/AdvReac Type Severity Reaction Status Date / Time No Known Allergies Allergy Verified 12/21/24 21:35 Family History Other Anxiety Colon cancer Depression Heart disease Surgical History H/O knee surgery Social History Smoking Status: Never smoker alcohol intake: former details: Drinking alcohol 2 weeks ago [facility] ED Constitutional Constitutional ED: Denies chills or fever(s) ENT ENT ED: Denies sore throat Cardiovascular Cardiovascular: Denies chest pain Respiratory/Chest Respiratory/Chest: Denies cough or dyspnea Gastrointestinal Gastrointestinal: Reports abdominal pain, diarrhea and nausea; Denies melena or vomiting Genitourinary Genitourinary ED: Denies dysuria or hematuria Musculoskeletal Musculoskeletal: Denies back pain or myalgias Integumentary Denies rash Neurologic Neurologic: Denies headache(s) Hematologic/Lymphatic Hematologic/Lymphatic: Denies easy bleeding or easy bruising EXAM Physical Exam Const Vital Signs: 12/21/24 21:34 12/21/24 23:22 12/21/24 23:40 Temperature 99.8 F H 99.5 F H Temperature Source Oral Oral Pulse Rate 88 82 74 Respiratory Rate 17 15 18 Blood Pressure 130/72 H 102/73 124/76 H Blood Pressure Mean 91 82 92 Pulse Ox 99 98 97 Oxygen Delivery Method Room Air Room Air Room Air 12/22/24 00:00 12/22/24 01:00 12/22/24 02:00 Temperature 99.3 F H 99.3 F H 98.4 F Temperature Source Oral Oral Oral Pulse Rate 81 78 78 Respiratory Rate 18 18 18 Blood Pressure 119/69 121/77 H 121/77 H Blood Pressure Mean 85 91 91 Pulse Ox 96 98 94 Oxygen Delivery Method Room Air Room Air 12/22/24 02:09 Temperature 98.4 F Temperature Source Pulse Rate 78 Respiratory Rate 16 Blood Pressure 129/79 H Blood Pressure Mean 95 Pulse Ox 94 Oxygen Delivery Method Positive well nourished and well developed General Appearance ED: well developed; Negative for pallor HEENT Reports dry mucous membranes HEENT Narrative: No tongue or lip swelling no oral lesions no airway edema or compromise No secondary findings in the posterior pharynx to suggest infection Mouth ED: Yes dry mucous membranes Mouth: dry mucous membranes Eyes PERRL and EOMs intact bilaterally General Eye ED: Negative for scleral icterus Neck supple Neck Narrative: No nuchal rigidity or meningeal signs noted Resp normal respiratory effort and clear to auscultation bilaterally Cardio regular rate and regular rhythm Rate: other Other Details: Radial and carotid pulses are equal and symmetric GI non-distended and no masses GI Narrative: Abdomen is soft and nondistended with normal active bowel sounds There is pain on palpation in the midepigastric region but no voluntary guarding or rigidity or pulsatile mass No peritoneal signs Negative Castelan sign Auscultation: normoactive bowel sounds Palpation: soft Back/Spine no CVA tenderness Extremity normal to inspection Neuro oriented x3, CN's II-XII intact bilaterally and no sensory deficits noted Sensorium / Orientation: alert Motor Exam: strength 5/5 throughout Psych mental status grossly normal Skin no rashes or lesions noted General Skin Exam: Negative for jaundice or pallor MDM MDM MDM Narrative Medical decision making narrative: Patient arrived to the ER with stable vitals. He reported increasing pain in the midepigastric region and therefore there is concern for pancreatitis versus gastritis versus biliary colic versus acute cholecystitis. Blood work was obtained and shows elevated lipase at approximately 700. With his history of alcohol use there is high likelihood for acute pancreatitis. Secondary to this a CT scan with IV contrast was added. CT scan did not show any inflammatory findings for acute pancreatitis but did note a potential mass on or near the pancreas. As the patient has high likelihood for pancreatic cancer and/or pseudocyst based on his recurrent alcohol use I did discuss the case with the hospitalist. He agrees based on his history and elevated lipase as well as CT scan showing mass he will need admitted for further evaluation and potential consultation with gastroenterology. Therefore the patient was admitted to the hospitalist service as documented above for continued care. As the patient does have a history of alcohol abuse he was given phenobarbital to prevent withdrawal symptoms as his alcohol value was negative this evening History & Record Review Discussion w/independent historian: Patient and Significant other Lab Data Attestation: I reviewed the patient's lab results. Labs: Laboratory Results - last 24 hr 12/21/24 12/22/24 12/22/24 21:43 00:00 00:47 WBC 10.7 RBC 4.35 L Hgb 13.2 Hct 39.2 L MCV 90.1 MCH 30.3 MCHC 33.7 RDW Std Deviation 41.1 RDW Coeff of Antony 12.4 Plt Count 231 MPV 8.5 Immature Gran % (Auto) 0.700 Neut % (Auto) 74.7 H Lymph % (Auto) 14.3 L [place] % (Auto) 7.3 Eos % (Auto) 2.4 Baso % (Auto) 0.6 Absolute Neuts (auto) 8.0 H Absolute Lymphs (auto) 1.53 Nucleated RBC % 0 Sodium 136 Potassium 3.8 Chloride 99 Carbon Dioxide 24.6 Anion Gap 13 BUN 13 Creatinine 0.83 Estim Creat Clear Calc 88.04 Est GFR (MDRD) Non-Af 99 BUN/Creatinine Ratio 15.7 Glucose 123 H Calcium 9.1 Magnesium 2.3 H Total Bilirubin 0.65 AST 94 H ALT 122 H Alkaline Phosphatase 153 H Total Protein 7.2 Albumin 4.2 Globulin 3.1 Albumin/Globulin Ratio 1.4 Lipase 687 H TSH 7.330 H Urine Color Yellow Urine Clarity Sl. Cloudy Urine pH 6.0 Ur Specific [place] 1.015 Urine Protein 100 H Urine Glucose (UA) Normal Urine Ketones Negative Urine Occult Blood 50 H Urine Nitrite Negative Urine Bilirubin 1 H Urine Urobilinogen 8 H Ur Leukocyte Esterase 25 H Urine RBC 0-5 SEEN Urine WBC 0-5 SEEN Ur Squamous Epith Cells 0-5 SEEN Urine Bacteria 2+ Urine Mucus 2+ Ethyl Alcohol < 10.1 Radiography Diagnostic Testing: Clinical Impression(s) from Imaging Studies Abdomen/Pelvis CT 12/22/24 00:50 IMPRESSION: No CT evidence of acute pancreatitis. 4 cm ovoid focus at the left upper quadrant between the tail of the pancreas, upper pole left kidney and splenic hilum etiology is unclear. Density measures higher than simple fluid. Unclear if this represents a complex cyst or solid lesion with the organ of origin unclear. May follow-up with nonemergent multiphasic liver CT or MRI. Right coronary calcification and/or stent. Hepatic steatosis. Diverticulosis without diverticulitis. Reading Location: [id number] Management Discussion w/another healthcare provider: Hospitalist Discharge Plan Dx/Rx/DC Orders Clinical Impression: Alcoholic pancreatitis, Chronic alcohol abuse, Hypertension, Elevated liver enzymes Disposition Disposition: Acute Care Hospital [facility]
--- NOTE | 2024-12-22 02:20 | MRI_ITS ---
PROCEDURE: MRCP ABDOMEN WITHOUT CONTRAST, 12/22/2024 REASON FOR EXAM: 4 CM MASS NEAR TAIL OF PANCREAS ON CT. TECHNIQUE: Multiplanar multisequence MRI abdomen was performed without IV contrast. MRCP was performed including generation of MIP reconstructions and 3D reformats. COMPARISON: CT of same date FINDINGS: Variable overall mild motion limitation. Note that the exam was optimized for evaluation of the gallbladder and biliary tree rather than the remaining abdominal viscera. Note also that sensitivity is limited in the absence of IV contrast. Liver: Slightly T2 bright and T1 isointense to slightly T1 hypointense subcapsular lesion in the anterior liver measures 1.1 x 1.6 cm, incompletely characterized in the absence of IV contrast. Additional punctate and small T2 bright presumed cyst in the hepatic dome and inferior RIGHT lobe, also incompletely characterized. Gallbladder/biliary: Cholelithiasis. Mild gallbladder wall thickening. Mild dilatation of the CBD and the common hepatic duct to 9 mm. No definite filling defect to suggest choledocholithiasis. Pancreas trace to mild peripancreatic edema most notable along the body/tail, without organized fluid collection. No ductal dilatation. T1 bright lesion of concern on previous CT most likely represents an exophytic LEFT upper pole renal lesion, incompletely characterized in the absence of IV contrast, measuring 4.1 x 3.1 cm. This also abuts the pancreatic tail however there appears an intervening fat plane is suggested, allowing for mild motion artifact. Other: Susceptibility effect along the posterolateral spleen of uncertain etiology. Additional T2 bright and T2 dark RIGHT lower pole presumed renal cyst, incompletely characterized in the absence of IV contrast. Diverticulosis. Multilevel spondylosis. Trace lumbar dextroscoliosis. MRI/MRCP Abdomen without Contrast IMPRESSION: 1. Findings are compatible with trace to mild acute pancreatitis. No organized fluid collection. Correlate with serum lipase. 2. Cholelithiasis with mild gallbladder wall thickening which could be reactive to the above or reflect acute cholecystitis. If there is clinical ambiguity, consider HIDA. 3. Mild biliary dilatation without definite choledocholithiasis or other obstru cting process evident in the absence of IV contrast or routine MRI abdomen sequences. This could conceivably reflect ampu llary stenosis or less likely an occult ampullary lesion. Correlate with serum bilirubin and recommend attention on below recomm ended outpatient follow-up imaging. 4. 4.1 cm lesion of concern on previous CT is favored to reflect an exophytic L EFT upper pole renal lesion, incompletely characterized in the absence of IV contrast and routine noncontrast MRI abdomen sequences and indeterminate. Recommend outpatient multiphase CT or MRI abdomen with and without contrast for more defi nitive characterization. If multiphase MRI is pursued, subtraction sequences should be generated by the technologist. 5. Indeterminate hepatic lesions up to 1.6 cm, similarly incompletely character ized. Correlate with medical history and recommend clinical follow-up including attention on above postcontrast imaging. 6. Additional description as above. Note comparison with any available outside imaging may be helpful to establish stability of the above indeterminate findings in #3-5. Reading Location: [id number]
[2024-12-22 03:06] LABS: Magnesium 2.3 mg/dL (1.5-2.2)
[2024-12-22] MEDS: Pantoprazole Sodium 40 MG in 0.9% Normal Saline (100mL MB+) 100 ML 330 MG IV (04:52)
[2024-12-22] MEDS: Lactated Ringers 1,000 ML 150 ML IV ×3 (04:52→20:07)
[2024-12-22] MEDS: Phenobarbital Sodium 65 MG/ML Vial 100 MG IV (04:53)
--- NOTE | 2024-12-22 05:25 | NURSING ---
advised pt that d/t his fall risk, staff would be assisting him to the restroom. his indicates she would prefer to help him herself. bed exit turned off since family is in room.
--- NOTE | 2024-12-22 07:04 | PCM.PN.HOSP ---
Reason for Visit Reason for Visit: Diagnoses Obesity, class 1 (12/22/24) Alcohol abuse, uncomplicated (12/22/24) Other specified anxiety disorders (12/22/24) Alcohol induced acute pancreatitis without necrosis or infection (12/22/24) Epigastric pain (12/22/24) Unspecified abdominal pain (12/22/24) Left upper quadrant abdominal swelling, mass and lump (12/22/24) Fever, unspecified (12/22/24) Elevation of levels of liver transaminase levels (12/22/24) Subjective Subjective Feeling better. Tolerating clears. No further abdominal pain. Objective Data Objective Data Vital Signs: Vital Signs Temp Pulse Resp BP Pulse Ox O2 Del Method 36.6 C 66 16 124/79 H 96 Room Air 12/22/24 04:42 12/22/24 04:42 12/22/24 04:42 12/22/24 04:42 12/22/24 04:42 12/22/24 04:42 Oxygen Delivery Method Room Air Weight: 77.5 kg Body Mass Index (BMI) 31.2 Intake & Output: Intake and Output for Last 24 Hours 12/20/24 12/21/24 12/22/24 23:59 23:59 23:59 Intake Total 1110 / 1110 Balance 1110 / 1110 Lab / Micro Data 12/22/24 06:17 12/22/24 06:17 Labs: Laboratory Results - last 24 hr 12/21/24 21:43: WBC 10.7, RBC 4.35 L, Hgb 13.2, Hct 39.2 L, MCV 90.1, MCH 30.3, MCHC 33.7, RDW Std Deviation 41.1, RDW Coeff of Antony 12.4, Plt Count 231, MPV 8.5, Immature Gran % (Auto) 0.700, Neut % (Auto) 74.7 H, Lymph % (Auto) 14.3 L, [place] % (Auto) 7.3, Eos % (Auto) 2.4, Baso % (Auto) 0.6, Absolute Neuts (auto) 8.0 H, Absolute Lymphs (auto) 1.53, Nucleated RBC % 0, Sodium 136, Potassium 3.8, Chloride 99, Carbon Dioxide 24.6, Anion Gap 13, BUN 13, Creatinine 0.83, Estim Creat Clear Calc 88.04, Est GFR (MDRD) Non-Af 99, BUN/Creatinine Ratio 15.7, Glucose 123 H, Calcium 9.1, Magnesium 2.3 H, Total Bilirubin 0.65, AST 94 H, ALT 122 H, Alkaline Phosphatase 153 H, Total Protein 7.2, Albumin 4.2, Globulin 3.1, Albumin/Globulin Ratio 1.4, Lipase 687 H, TSH 7.330 H 12/22/24 00:00: Urine Color Yellow, Urine Clarity Sl. Cloudy, Urine pH 6.0, Ur Specific [place] 1.015, Urine Protein 100 H, Urine Glucose (UA) Normal, Urine Ketones Negative, Urine Occult Blood 50 H, Urine Nitrite Negative, Urine Bilirubin 1 H, Urine Urobilinogen 8 H, Ur Leukocyte Esterase 25 H, Urine RBC 0-5 SEEN, Urine WBC 0-5 SEEN, Ur Squamous Epith Cells 0-5 SEEN, Urine Bacteria 2+, Urine Mucus 2+ 12/22/24 00:47: Serum Folate 25.20, Ethyl Alcohol < 10.1 Radiography Diagnostic Testing: Radiology Impression Abdomen/Pelvis CT 12/22/24 00:50 IMPRESSION: No CT evidence of acute pancreatitis. 4 cm ovoid focus at the left upper quadrant between the tail of the pancreas, upper pole left kidney and splenic hilum etiology is unclear. Density measures higher than simple fluid. Unclear if this represents a complex cyst or solid lesion with the organ of origin unclear. May follow-up with nonemergent multiphasic liver CT or MRI. Right coronary calcification and/or stent. Hepatic steatosis. Diverticulosis without diverticulitis. Reading Location: [facility] Physical Exam Const alert and no apparent distress HEENT head/scalp atraumatic and moist oral mucous membranes Resp normal respiratory effort and no retractions GI normal to inspection, nondistended, normoactive bowel sounds, soft to palpation, non-tender and non-distended Assessment & Plan Assessment/Plan (1) Alcoholic pancreatitis: QUALIFIERS: Acute pancreatitis complication: unspecified Chronicity: acute Qualified Code(s): K85.20 - Alcohol induced acute pancreatitis without necrosis or infection PLAN: CT showed evidence of acute pancreatitis, though there an ovoid focus at the left upper quadrant bw tail of the pancreas, left kidney, splenic injury. Lipase 687 on admission. MRI abdomen: mild pancreatitis. No organized fluid collection. Cholelithiasis w mild GB wall thickening. Mild biliary dilation w/o definite choleocholithiasis. 4.[address] noted is an exophytic left upper pole renal lesion. Recommend multiphase CT or MRI as outpt. 1.6cm indeterminate hepatic lesion. Supportive mgmt. Advance diet. Check HIDA scan. GI consult (2) Chronic alcohol abuse: PLAN: Change phenobarbital from IV to PO taper. Thiamine and folate. PLAN: Plan Hypertension: stable. Resume lisinopril. Depression: continue SNRI Obesity class I: complicates care and recovery. VTE prophylaxis: SCDs Charges/Coding Visit Charges Inpatient E&M: 41070 Subs Hosp L2
[2024-12-22 07:06] LABS: Absolute Lymphocyte Count 1.79 X10^3/uL (0.83-4.51); Absolute Neutrophil Count 4.3 X10^3/uL (2.0-7.7); Basophil# 0.05 X10^3/uL; Basophil% 0.7 % (0-1); Eosinophils% 4.2 % (0-5); Hematocrit 35.3 % (40-54); Hemoglobin 11.4 g/dL (13.0-16.5); Lymphocyte # 1.79 X10^3/ul (0.83-4.51); Mean Corp Hgb Conc 32.3 g/dL (32-36); Mean Corpuscular Hgb 29.7 pg (27.0-32.0); Mean Corpuscular Volume 91.9 fL (80-94); Mean Platelet Vol. 8.9 fl (6.2-12.0); Monocyte% 9.8 % (0-10); NRBC Flagged by Analyzer 0 % (0-5); Neutrophil # 4.25 X10^3/uL (2.7-7.7); Neutrophil % 59.5 % (47-70); Platelet Count 206 K/mm3 (150-450); RBC Distribution Width CV 12.6 % (11.6-14.6); RBC Distribution Width SD 42.2 fl (35.1-43.9); Red Blood Count 3.84 M/mm3 (4.6-6.2); White Blood Count 7.2 K/mm3 (4.4-11.0)
[2024-12-22 07:45] LABS: ALB/GLOB Ratio 1.4 RATIO (0.9-2.4); AST(SGOT) 80 U/L (<=37); Alanine Aminotransfer ALT/SGPT 122 U/L (<=46); Albumin, Serum 3.6 g/dL (3.4-4.8); Alkaline Phosphatase 126 U/L (40-129); Anion Gap 11 (5-15); BUN 10 mg/dL (4-19); BUN/Creat Ratio 14.3 RATIO (10-20); Calcium,Total 8.6 mg/dL (7.6-11.0); Carbon Dioxide 23.3 mmol/L (21.0-32.0); Chloride 103 mmol/L (98-108); Creatinine, Serum 0.67 mg/dL (0.70-1.20); EST Glomerular Filtration Rate 105 (>60); Estimated Creatinine Clearance 103.09 ml/min (50-250); Globulin 2.5 g/dL (2.2-4.2); Glucose 110 mg/dL (70-99); Phosphorus 3.7 mg/dL (2.7-4.5); Potassium 3.6 mmol/L (3.3-5.1); Protein, Total 6.1 g/dL (5.9-8.4); Sodium Level 137 mmol/L (133-145)
[2024-12-22] MEDS: Ketorolac 15 MG/ML Vial IV (07:59)
[2024-12-22] MEDS: 0.9% Saline Lock 10 ML Syringe IV ×2 (08:01→09:48)
[2024-12-22] MEDS: Dicyclomine 10 MG Capsule 20 MG PO (08:02)
[2024-12-22] MEDS: hydrOXYzine PAM 25 MG Capsule 50 MG PO (08:02)
[2024-12-22] MEDS: Phenobarbital 32.4 MG Tablet 64.8 MG PO ×4 (08:02→23:31)
[2024-12-22] MEDS: Thiamine Hydrochloride 100 MG Tablet PO (08:02)
[2024-12-22] MEDS: Folic Acid 1 MG Tablet PO (08:02)
[2024-12-22] MEDS: Venlafaxine XR 37.5 MG Capsule PO (08:05)
[2024-12-22] MEDS: Lisinopril 10 MG Tablet PO (08:05)
[2024-12-22 09:27] LABS: Vitamin B12 657 pg/mL (180-914)
--- NOTE | 2024-12-22 11:43 | CASEMGMT ---
MIQUEL QUICK Assessment: Face to Face with pt for initial transition planning/care coordination assessment. RN ABDELRAHMAN introduced self and role at [facility], pt voices understanding and consents to assessment. Pt is A&O x4 and answers all questions appropriately at this time. Pt lying in bed in no distress with at bedside. Pt agreeable to assessment with present. Care providers, pharmacy, and demographics verified/updated. Admitting Dx: ETOH pancreatitis, transaminitis and mass Strata Score: 1 PCP:Payal Specialists: Denies Preferred Pharmacy:[facility] Insurance: [employer] Prescription Benefit: yes LNOK: Chandni Rolle, ; Tony Rolle, son Living Arrangements: Pt lives with and father in law in a single story home with a ramp to enter. Pt reports he is I in ADL/IADLs and denies concerns at home. Transportation: Pt drives self and denies concerns with transportation. DME:shower chair, BSC, walker, crutches- typically doesn't use AD HHC/SNF: Denies hx of Pt states no concerns with going home at time of dc. Pt denies smoking, drinks 6-8 beers per day and denies street drugs or illegal drugs. Pt denies need for resources for cessation. Pt states no further concerns/needs. CM to follow. Advised pt to ask CM if any further questions/concerns/needs arise, voices understanding. Pt Goal: Home Plan: Home Den LAFLEUR CM
--- NOTE | 2024-12-22 14:03 | CHAPLAIN ---
Type of Pastoral Visit _x__ Initial Visit ___ Follow-up Visit ___ On-call Visit ___ General Patient Visit ___ Spiritual Assessment ___ Family Conference ___ Bereavement ___ Rapid Response ___ Code Blue ___ Other (describe below) Pastoral Care Referral From _x__ Patient ___ Family ___ Nurse ___ Physician ___ Housekeeper And Laundry Assistant ___ Avionics Systems Technician ___ Other (describe below) Sacrament/Intervention _x__ Active listening ___ Anointing ___ Pentecostal ___ Bereavement ___ Communion ___ Samara exploration ___ _x__ Life review _x__ Prayer ___ Reconciliation ___ Sacrament of Sick _x__ Supportive presence ___ Wedding ___ Other (describe below) Pastoral Comments patient and spouse are in the room; pt acknowledges discomfort and also benefits of having his with him; pt says that this is a first time experience and what he really needs is answers to the questions; prayer welcomed
--- NOTE | 2024-12-22 15:26 | US_ITS ---
PROCEDURE: KIDNEY AND BLADDER 12/22/2024 REASON FOR EXAM: LEFT KIDNEY MASS TECHNIQUE: Bilateral renal ultrasound. COMPARISON: None FINDINGS: Kidneys: Normal renal sizes, parenchymal thicknesses, and echotextures. [place]: No hydronephrosis. Cysts or Masses: 3.8 x 2.5 x 3.1 cm left upper pole simple cyst. Other: Incidental finding 1.3 x 1.2 x 0.9 cm right hepatic lobe simple cyst. RIGHT Kidney Size: 11.6 x 6 x 5.6 Parenchymal Thickness: 15 (>14mm is normal) LEFT Kidney Size: 11.3 x 5 x 5.8 Parenchymal Thickness: 17 (>14mm is normal) Urinary bladder is unremarkable, bilateral ureteral jets visualized. Prevoid volume 129 cc.. US/Kidney and Bladder IMPRESSION: 3.8 cm left upper pole simple cysts. No calculi or hydronephrosis. Reading Location: [facility]
--- NOTE | 2024-12-22 16:35 | CON.PCM.GI_ITS ---
HPI Consult Data Date of Consult: 12/22/24 HPI Narrative Reason for Consultation: Elevated liver enzymes and pancreatitis HPI Narrative: MOISES FERREIRA, is a 64 M who presented with worsening abdominal pain. He denied fevers chills or known sick contacts. He reports that the pain seemed to have worsened over the last few days which is why presents at this time. He denies any history of gallbladder dysfunction but states he does drink on average 8-10 beers at night and has done that for roughly 20 to 30 years. He denies any previous history of pancreatitis. He has lost about 10 to 15 pounds. Blood work is consistent with a cholestatic hepatitis and pancreatitis. CT/Abdomen/Pelvis W IV Cont ONLY IMPRESSION: No CT evidence of acute pancreatitis. 4 cm ovoid focus at the left upper quadrant between the tail of the pancreas, upper pole left kidney and splenic hilum etiology is unclear. Density measures higher than simple fluid. Unclear if this represents a complex cyst or solid lesion with the organ of origin unclear. May follow-up with nonemergent multiphasic liver CT or MRI. Right coronary calcification and/or stent. Hepatic steatosis. Diverticulosis without diverticulitis. MRI/MRCP Abdomen without Contrast IMPRESSION: 1. Findings are compatible with trace to mild acute pancreatitis. No organized fluid collection. Correlate with serum lipase. 2. Cholelithiasis with mild gallbladder wall thickening which could be reactive to the above or reflect acute cholecystitis. If there is clinical ambiguity, consider HIDA. 3. Mild biliary dilatation without definite choledocholithiasis or other obstructing process evident in the absence of IV contrast or routine MRI abdomen sequences. This could conceivably reflect ampullary stenosis or less likely an occult ampullary lesion. Correlate with serum bilirubin and recommend attention on below recommended outpatient follow-up imaging. 4. 4.1 cm lesion of concern on previous CT is favored to reflect an exophytic LEFT upper pole renal lesion, incompletely characterized in the absence of IV contrast and routine noncontrast MRI abdomen sequences and indeterminate. Recommend outpatient multiphase CT or MRI abdomen with and without contrast for more definitive characterization. If multiphase MRI is pursued, subtraction sequences should be generated by the technologist. 5. Indeterminate hepatic lesions up to 1.6 cm, similarly incompletely characterized. Correlate with medical history and recommend clinical follow-up including attention on above postcontrast imaging. [facility] Medical History Hypertension Back pain with history of spinal surgery Home Medications ?Medication ?Instructions ?Recorded ?Last Taken ?Type lisinopril 10 mg tablet 10 mg PO DAILY 01/05/23 Unkn own History desvenlafaxine succinate 50 mg 50 mg PO DAILY 12/21/24 Unknown History tablet,extended release 24 hr Allergy/AdvReac Type Severity Reaction Status Date / Time No Known Allergies Allergy Verified 12/21/24 21:35 Family History Other Anxiety Colon cancer Depression Heart disease Surgical History H/O knee surgery Social History Smoking Status: Never smoker alcohol intake: former details: Drinking alcohol 2 weeks ago ROS Constitutional Constitutional: Denies fatigue, fever(s), poor appetite, weight gain or weight loss Gastrointestinal Gastrointestinal: Denies belching, bloating, change in bowel habits, change in stool character, chewing difficulty, coffee ground emesis, constipation, cramping, diarrhea, dyspepsia, dysphagia, early satiety, excessive flatus, fecal incontinence, heartburn, hematemesis, hematochezia, hemorrhoids, loose stools, melena, nausea, odynophagia, rectal bleeding, tenesmus, vomiting or weight changes Physical Exam Const alert and no apparent distress HEENT head/scalp atraumatic and moist oral mucous membranes Resp normal respiratory effort and no retractions GI normal to inspection, nondistended, normoactive bowel sounds, soft to palpation, non-tender and non-distended Lab / Micro Data 12/22/24 06:17 12/22/24 06:17 Labs: Laboratory Results - last 24 hr 12/21/24 21:43: WBC 10.7, RBC 4.35 L, Hgb 13.2, Hct 39.2 L, MCV 90.1, MCH 30.3, MCHC 33.7, RDW Std Deviation 41.1, RDW Coeff of Antony 12.4, Plt Count 231, MPV 8.5, Immature Gran % (Auto) 0.700, Neut % (Auto) 74.7 H, Lymph % (Auto) 14.3 L, [place] % (Auto) 7.3, Eos % (Auto) 2.4, Baso % (Auto) 0.6, Absolute Neuts (auto) 8.0 H, Absolute Lymphs (auto) 1.53, Nucleated RBC % 0, Sodium 136, Potassium 3.8, Chloride 99, Carbon Dioxide 24.6, Anion Gap 13, BUN 13, Creatinine 0.83, Estim Creat Clear Calc 88.04, Est GFR (MDRD) Non-Af 99, BUN/Creatinine Ratio 15.7, Glucose 123 H, Calcium 9.1, Magnesium 2.3 H, Total Bilirubin 0.65, AST 94 H, ALT 122 H, Alkaline Phosphatase 153 H, Total Protein 7.2, Albumin 4.2, Globulin 3.1, Albumin/Globulin Ratio 1.4, Lipase 687 H, TSH 7.330 H 12/22/24 00:00: Urine Color Yellow, Urine Clarity Sl. Cloudy, Urine pH 6.0, Ur Specific [place] 1.015, Urine Protein 100 H, Urine Glucose (UA) Normal, Urine Ketones Negative, Urine Occult Blood 50 H, Urine Nitrite Negative, Urine Bilirubin 1 H, Urine Urobilinogen 8 H, Ur Leukocyte Esterase 25 H, Urine RBC 0-5 SEEN, Urine WBC 0-5 SEEN, Ur Squamous Epith Cells 0-5 SEEN, Urine Bacteria 2+, Urine Mucus 2+ 12/22/24 00:47: Serum Folate 25.20, Ethyl Alcohol < 10.1 12/22/24 06:17: WBC 7.2, RBC 3.84 L, Hgb 11.4 L, Hct 35.3 L, MCV 91.9, MCH 29.7, MCHC 32.3, RDW Std Deviation 42.2, RDW Coeff of Antony 12.6, Plt Count 206, MPV 8.9, Immature Gran % (Auto) 0.800, Neut % (Auto) 59.5, Lymph % (Auto) 25.0, [place] % (Auto) 9.8, Eos % (Auto) 4.2, Baso % (Auto) 0.7, Absolute Neuts (auto) 4.3, Absolute Lymphs (auto) 1.79, Nucleated RBC % 0, Sodium 137, Potassium 3.6, Chloride 103, Carbon Dioxide 23.3, Anion Gap 11, BUN 10, Creatinine 0.67 L, Estim Creat Clear Calc 103.09, Est GFR (MDRD) Non-Af 105, BUN/Creatinine Ratio 14.3, Glucose 110 H, Calcium 8.6, Phosphorus 3.7, Total Bilirubin 0.50, AST 80 H , ALT 122 H, Alkaline Phosphatase 126, Total Protein 6.1, Albumin 3.6, Globulin 2.5, Albumin/Globulin Ratio 1.4, Vitamin B12 657, Free T4 1.30, Free T3 pg/dL 3.0 Imaging Radiology Impression Abdomen/Pelvis CT 12/22/24 00:50 IMPRESSION: No CT evidence of acute pancreatitis. 4 cm ovoid focus at the left upper quadrant between the tail of the pancreas, upper pole left kidney and splenic hilum etiology is unclear. Density measures higher than simple fluid. Unclear if this represents a complex cyst or solid lesion with the organ of origin unclear. May follow-up with nonemergent multiphasic liver CT or MRI. Right coronary calcification and/or stent. Hepatic steatosis. Diverticulosis without diverticulitis. Reading Location: [id number] MRCP 12/22/24 02:20 IMPRESSION: 1. Findings are compatible with trace to mild acute pancreatitis. No organized fluid collection. Correlate with serum lipase. 2. Cholelithiasis with mild gallbladder wall thickening which could be reactive to the above or reflect acute cholecystitis. If there is clinical ambiguity, consider HIDA. 3. Mild biliary dilatation without definite choledocholithiasis or other obstructing process evident in the absence of IV contrast or routine MRI abdomen sequences. This could conceivably reflect ampullary stenosis or less likely an occult ampullary lesion. Correlate with serum bilirubin and recommend attention on below recommended outpatient follow-up imaging. 4. 4.1 cm lesion of concern on previous CT is favored to reflect an exophytic LEFT upper pole renal lesion, incompletely characterized in the absence of IV contrast and routine noncontrast MRI abdomen sequences and indeterminate. Recommend outpatient multiphase CT or MRI abdomen with and without contrast for more definitive characterization. If multiphase MRI is pursued, subtraction sequences should be generated by the technologist. 5. Indeterminate hepatic lesions up to 1.6 cm, similarly incompletely characterized. Correlate with medical history and recommend clinical follow-up including attention on above postcontrast imaging. 6. Additional description as above. Note comparison with any available outside imaging may be helpful to establish stability of the above indeterminate findings in #3-5. Reading Location: [id number] Assessment & Plan Assessment/Plan (1) Alcoholic pancreatitis: QUALIFIERS: Chronicity: acute Acute pancreatitis complication: u nspecified Qualified Code(s): K85.20 - Alcohol induced acute pancreatitis without necrosis or infection (2) Chronic alcohol abuse: (3) Transaminitis: (4) Abdominal mass, left upper quadrant: (5) Fever: QUALIFIERS: Fever type: unspecified Qualified Code(s): R50.9 - Fever, unspecified (6) Abdominal pain: QUALIFIERS: Abdominal location: epigastric Qualified Code(s): R 10.13 - Epigastric pain (7) Obesity (BMI 30.0-34.9): (8) Depression with anxiety: PLAN: Plan 64-year-old gentleman comes in for worsening abdominal pain and discovered to have biochemical evidence of cholestatic hepatitis with pancreatitis by blood work. CT scan of the abdomen and pelvis with IV contrast that revealed no evidence of acute pancreatitis but did show ~4 cm ovoid focus at the LUQ between the tail of the pancreas, upper pole of the Left kidney and splenic hilum with unclear etiology. MRI does not show with the the lesion is near the spleen on the left kidney. Patient should get a CA 19-9 along with a CEA and alpha-fetoprotein. He will need endoscopic ultrasound to evaluate the lesion and possible biopsy. Consider urology consultation for lesion near the upper pole of the left kidney. The patient possibly has stricturing disease allowing for dilated common bile duct and pancreatic duct versus ampullary neoplasm. He should undergo endoscopic evaluation. Charges/Coding Visit Charges Inpatient E&M: 05682 Init Hosp L3
[2024-12-23] VITALS (17 sets, daily range): BP systolic 106–144; BP diastolic 60–90; PULSE 63–83; RESP 15–18; TEMP 36.3–36.9; O2SAT 92–98
--- NOTE | 2024-12-23 | FLU_PTH ---
PATIENT: MOISES FERREIRA LOC: MS3 U#:[id number] AGE/SX: 64/M ROOM: CO318 RE12/22/[address]: Dr. Bozena Echavarria MD : 1960 BED: 1 DIS: 12/25/2024 SPEC #: [id number] RECD: 12/23/24 17:54 STATUS: MARCELO REQ #: [id number] RADHA: 12/23/24 00:[address]: Abimael Welch DEPT: CYTOLOGY RECD BY: Dandre Cote ENTERED: 12/24/24 11:10 SP TYPE: Fluid OTHR DR: DO Dr. Palmer Smith DO Dr. Nana Yaa Koram, MD Dr. William Lago, MD Tissues: A - Bile duct, NOS Procedures: Special Stain Group II Surgery Specimen Level III Surgery Specimen Level IV Cytospin Fluid HEADER OPERATION: ERCP with stent placement, biliary stricture dilation, cytology PRE-OP DIAGNOSIS: Alcoholic pancreatitis, chronic alcohol abuse, transaminitis, abdominal mass, left upper quadrant, fever, abdominal pain TISSUE SUBMITTED: A- Biliary stricture brushings x3 and brush tip DIAGNOSIS CYTOLOGY A. Biliary stricture, ERCP (brushings, cytospin, and cellblock): * Rare atypical cells, favor reactive change - see Comment. COMMENT The slides were also reviewed by Dr John Blair (Community pathology division, [facility]). CYTOLOGY STUDY Slides are reviewed. CYTOLOGY GROSS A. Received is brush tip with 20 ml of cloudy-colorless fluid and 6 smears labeled with the patient's name and and designated per the requisition as Biliary stricture brush tip and brushings. Submitted for cytology and cell block preparation. Mr 12/24/2024 CPT: 11767, 75406
[2024-12-23 04:07] LABS: Carbohydrate AG 19-9 15 U/mL (0-35)
--- NOTE | 2024-12-23 05:30 | NM_ITS ---
PROCEDURE: HEPATOBILLIARY IMG W/PHARM INT 12/23/2024 REASON FOR EXAM: ABDOMINAL PAIN TECHNIQUE: Intravenous Choletec with planar imaging of the abdomen. 1.6 mcg Kinevac intravenously approximately 60 minutes after the radiopharmaceutical with additional anterior imaging and a region of interest drawn around the gallbladder to calculate a time-activity curve. RADIOPHARMACEUTICAL: 5.9 mCi of technetium labeled mebrofenin COMPARISON: None. FINDINGS: There is good uptake of the radiopharmaceutical by the liver. Normal gallbladder visualization with the gallbladder identified by 60 minutes. Gallbladder Ejection Fraction: 83 % (Normal is >35%) NM/Hepatobilliary Img w/Pharm Int IMPRESSION: Normal gallbladder ejection fraction. Reading Location: [id number]
--- NOTE | 2024-12-23 07:27 | RAD_ITS ---
PROCEDURE: ERCP BILIARY/PANCREAS; O.R. FLUORO FOR C-ARM 12/23/2024 REASON FOR EXAM: ABD PAIN; ERCP TECHNIQUE: Fluoroscopy was provided for ERCP. Also, 10 fluoroscopic images were obtained. COMPARISON: None. RAD/O.R. Fluoro for C-Arm IMPRESSION: Fluoroscopy was provided for ERCP. Also, 10 fluoroscopic images were obtained. Reading Location: [place] [id number]
--- NOTE | 2024-12-23 07:27 | RAD_ITS ---
PROCEDURE: ERCP BILIARY/PANCREAS; O.R. FLUORO FOR C-ARM 12/23/2024 REASON FOR EXAM: ABD PAIN; ERCP TECHNIQUE: Fluoroscopy was provided for ERCP. Also, 10 fluoroscopic images were obtained. COMPARISON: None. RAD/ERCP Biliary/Pancreas IMPRESSION: Fluoroscopy was provided for ERCP. Also, 10 fluoroscopic images were obtained. Reading Location: [place] [address]
--- NOTE | 2024-12-23 07:59 | PN.HOSP_ITS ---
Reason for Visit Reason for Visit: Diagnoses Obesity, class 1 (12/22/24) Alcohol abuse, uncomplicated (12/22/24) Other specified anxiety disorders (12/22/24) Alcohol induced acute pancreatitis without necrosis or infection (12/22/24) Epigastric pain (12/22/24) Unspecified abdominal pain (12/22/24) Left upper quadrant abdominal swelling, mass and lump (12/22/24) Fever, unspecified (12/22/24) Elevation of levels of liver transaminase levels (12/22/24) Subjective Subjective Feeling better. Objective Data Objective Data Vital Signs: Vital Signs Temp Pulse Resp BP Pulse Ox O2 Del Method 36.4 C L 63 18 140/81 H 96 Room Air 12/23/24 02:47 12/23/24 02:47 12/23/24 02:47 12/23/24 02:47 12/23/24 02:47 12/23/24 02:47 Oxygen Delivery Method Room Air Weight: 77.5 kg Body Mass Index (BMI) 31.2 Intake & Output: Intake and Output for Last 24 Hours 12/21/24 12/22/24 12/23/24 23:59 23:59 23:59 Intake Total 3242.5 / 3242.5 1000 / 1000 Balance 3242.5 / 3242.5 1000 / 1000 Lab / Micro Data 12/22/24 06:17 12/22/24 06:17 Labs: Laboratory Results - last 24 hr 12/22/24 00:43: CA 19-9 Antigen 15 12/22/24 06:17: Vitamin B12 657, Free T4 1.30, Free T3 pg/dL 3.0 Radiography Diagnostic Testing: Radiology Impression Abdomen/Pelvis CT 12/22/24 00:50 IMPRESSION: No CT evidence of acute pancreatitis. 4 cm ovoid focus at the left upper quadrant between the tail of the pancreas, upper pole left kidney and splenic hilum etiology is unclear. Density measures higher than simple fluid. Unclear if this represents a complex cyst or solid lesion with the organ of origin unclear. May follow-up with nonemergent multiphasic liver CT or MRI. Right coronary calcification and/or stent. Hepatic steatosis. Diverticulosis without diverticulitis. Reading Location: [id number] MRCP 12/22/24 02:20 IMPRESSION: 1. Findings are compatible with trace to mild acute pancreatitis. No organized fluid collection. Correlate with serum lipase. 2. Cholelithiasis with mild gallbladder wall thickening which could be reactive to the above or reflect acute cholecystitis. If there is clinical ambiguity, consider HIDA. 3. Mild biliary dilatation without definite choledocholithiasis or other obstructing process evident in the absence of IV contrast or routine MRI abdomen sequences. This could conceivably reflect ampullary stenosis or less likely an occult ampullary lesion. Correlate with serum bilirubin and recommend attention on below recommended outpatient follow-up imaging. 4. 4.1 cm lesion of concern on previous CT is favored to reflect an exophytic LEFT upper pole renal lesion, incompletely characterized in the absence of IV contrast and routine noncontrast MRI abdomen sequences and indeterminate. Recommend outpatient multiphase CT or MRI abdomen with and without contrast for more definitive characterization. If multiphase MRI is pursued, subtraction sequences should be generated by the technologist. 5. Indeterminate hepatic lesions up to 1.6 cm, similarly incompletely characterized. Correlate with medical history and recommend clinical follow-up including attention on above postcontrast imaging. 6. Additional description as above. Note comparison with any available outside imaging may be helpful to establish stability of the above indeterminate findings in #3-5. Reading Location: [id number] Renal Ultrasound 12/22/24 15:26 IMPRESSION: 3.8 cm left upper pole simple cysts. No calculi or hydronephrosis. [facility] Physical Exam Const alert and no apparent distress HEENT head/scalp atraumatic and moist oral mucous membranes Resp normal respiratory effort, no retractions, no use of accessory muscles and clear to auscultation bilaterally Cardio regular rate, regular rhythm, S1 normal heart sound and S2 normal heart sound GI normal to inspection, nondistended, normoactive bowel sounds and soft to palpation Assessment & Plan Assessment/Plan (1) Alcoholic pancreatitis: QUALIFIERS: Acute pancreatitis complication: unspecified C hronicity: acute Qualified Code(s): K85.20 - Alcohol induced acute pancreatitis without necrosis or infection PLAN: CT showed evidence of acute pancreatitis, though there an ovoid focus at the left upper quadrant bw tail of the pancreas, left kidney, splenic injury. Lipase 687 on admission. MRI abdomen: mild pancreatitis. No organized fluid collection. Cholelithiasis w mild GB wall thickening. Mild biliary dilation w/o definite choleocholithiasis. 4.[address] noted is an exophytic left upper pole renal lesion. Recommend multiphase CT or MRI as outpt. 1.6cm indeterminate hepatic lesion. HIDA scan negative GI consult. Endoscopy planned today (2) Chronic alcohol abuse: PLAN: Phenobarbital taper. Thiamine and folate. (3) Renal mass: PLAN: Noted on MRI abdomen US showed 3.8 cm left upper pole simply cysts. No additional work up. PLAN: Plan Hypertension: stable. Resume lisinopril. Depression: continue SNRI Obesity class I: complicates care and recovery. VTE prophylaxis: SCDs Charges/Coding Visit Charges Inpatient E&M: 47152 Subs Hosp L2
[2024-12-23] MEDS: Lactated Ringers 1,000 ML 15 ML IV (15:51)
--- NOTE | 2024-12-23 16:02 | PCM.PRE.AN2 ---
ASA Classification* ASA Classification ASA Classification: 3 Assessment & Plan Anesthesia* Anesthesia Assessment Anesthesia Assessment: Discussed sedation and/or anesthesia options, risks, benefits, and alternatives with patient/parents/legal guardian/POA. Questions invited. The patient/parents/legal guardian/POA seems to understand and agrees to proceed with anesthesia plan. Reviewed the physical assessment, medical history, allergy history and patient home medications list prior to surgery/procedure/anesthetic and documented any changes. Performed airway and anesthesia risk assessments. Anesthesia Type Anesthesia Type: General History Source History Obtained from:: Patient and Chart Anesthesia Focused Assessment* Temperature: 98.5 F Pulse Rate: 70 Blood Pressure: 144/90 Respiratory Rate: 18 Pulse Ox: 95 Oxygen Delivery Method: Room Air Airway Assessment Mouth opens: >3 cm Mallampati Score: II Teeth Condition: Caps/Crowns (Patient has a crown left lower jaw.) and Missing (Patient missing couple teeth. Rest are tight) Neck Range of motion (ROM): Limited ROM (Severely decreased extension secondary to previous neck surgery.) Focused Labs Anesthesia Preop lab: CBC WBC 7.2 K/mm3 (4.4-11.0) 12/22/24 06:17 12/22/24 RBC 3.84 M/mm3 (4.6-6.2) L 12/22/24 06:17 12/22/24 Hgb 11.4 g/dL (13.0-16.5) L 12/22/24 06:17 12/22/24 Hct 35.3 % (40-54) L 12/22/24 06:17 12/22/24 Plt Count 206 K/mm3 (150-450) 12/22/24 06:17 12/22/24 CHEMISTRY Potassium 3.6 mmol/L (3.3-5.1) 12/22/24 06:17 12/22/24 Sodium 137 mmol/L (133-145) 12/22/24 06:17 12/22/24 Magnesium 2.3 mg/dL (1.5-2.2) H 12/21/24 21:43 12/21/24 Phosphorus 3.7 mg/dL (2.7-4.5) 12/22/24 06:17 12/22/24 BUN 10 mg/dL (4-19) 12/22/24 06:17 12/22/24 Creatinine 0.67 mg/dL (0.70-1.20) L 12/22/24 06:17 12/22/24 Glucose 110 mg/dL (70-99) H 12/22/24 06:17 12/22/24 TSH 7.330 uIU/mL (0.300-4.200) H 12/21/24 21:43 12/21/24 COAG PT 12.3 SECONDS (11.7-14.9) 01/05/23 18:05 01/05/23 Pre-Assessment Diagnosis/Proposed Procedure Planned Operative Procedure(s): Endoscopic retrograde cholangiopancreatography with possible biopsy and possible sphincterotomy with stone removal. Anesthesia History Anesthesia History - top carrier: Anesthesia History - top carrier Hx Hospitalization No 05/06/18 11:07 Any Problems With Anesthesia No 05/06/18 11:07 Cholinesterase deficiency No 05/06/18 11:07 You/Your Family Experience No 05/06/18 11:07 fever (hyperthermia) with Relationship Recent Exposure to Contagious No 05/09/18 09:34 Disease Does patient have nerve No 05/06/18 11:07 stimulator Patient instructed to have device shut off --Does patient have Pacemaker or ICD? When Was Last Pacemaker Check QUESTION #4 FULL TEXT: You/Your Family Experience fever (hyperthermia) with Anesthesia Last Oral Intake Last Oral intake: Last Oral Intake NPO since Meds taken in AM with sips of water? Meds patient instructed to take am of surgery Any additional information?: Yes NPO since: 00:00 Meds taken in AM with sips of water?: Yes PONV PONV - top carrier: PONV - top carrier Female HX of Motion Sickness HX of N/V After Surgery Non-Smoker Duration of Surgery greater than 60 minutes Number of Risk Factors PONV Score Height & Weight Height & Weight: Anesthesia: Height & Weight Height 5 ft 2 in 12/22/24 11:38 Weight: 77.5 kg 12/22/24 11:38 Body Mass Index (BMI) 31.2 12/22/24 04:25 Respiratory Assessment Respiratory Assessment - top carrier: Respiratory Tract Infection Hx - top carrier Hx Respiratory Tract Infection No 05/06/18 11:07 STOP Sleep Apnea STOP Sleep Apnea - top carrier: STOP Sleep Apnea - top carrier Hx Hypertension Yes 12/22/24 04:25 Hx Sleep Apnea No 12/22/24 04:25 CPAP BIPAP Do you snore loudly (louder Yes 12/22/24 04:25 than talking or can be heard Do you often feel tired/ No 12/22/24 04:25 fatigued/ sleepy during daytime? Has anyone observed you stop No 12/22/24 04:25 breathing during sleep? STOP Results Positive 12/22/24 04:25 QUESTION #5 FULL TEXT : Do you snore loudly (louder than talking or can be heard through closed doors)? Tobacco Use History Tobacco Use History - top carrier: Tobacco Use History - top carrier Tobacco Use Non-smoker 01/06/23 14:16 Smoking Status Never smoker 12/22/24 04:25 Hx Tobacco Use No 12/22/24 04:25 Years Smoking Packs Smoked per Day Smoking Cessation Date was within the last 15 years Hx Smoking Cessation Date Hx Smoking Cessation Yes 12/22/24 04:25 Counseling Hematologic Medial History Hematologic Hx - top carrier: Hematologic Medical Hx - oysterman Hx of Blood Transfusion No 12/22/24 04:25 Hx of Transfusion in last 3 No 12/22/24 04:25 Months Date of Last Transfusion (if within last 3 months) Ever experience any problems No 12/22/24 04:25 with transfusion(s)? Specify any problems Hx of Preganancy in last 3 N/A 12/22/24 04:25 Months Nurse Filling Out Transfusion LFORREST 12/22/24 04:25 & Questions: Date: 12/22/24 12/22/24 04:25 Time: 04:27 12/22/24 04:25 Patient unable to answer at this time (ie. confused, unrespo /Reproduction History /Reproductive History - top carrier: /Reproductive Hx- top carrier Hx Now Gestational Age (in weeks): EDC: Hx Hx Para Hx Section SAB Active Medications Active Medications: Current Medications Generic Name Dose Route Start Last Admin Trade Name Freq PRN Reason Stop Dose Admin Albuterol Sulfate 2.5 mg 12/22/24 03:18 Albuterol 2.5 Mg/3 Ml Vial.Neb. INHALATION Q2H PRN PRN SOB &/OR WHEEZING Dicyclomine HCl 20 mg 12/22/24 07:07 12/22/24 08:02 Dicyclomine 10 Mg Capsule PO 20 mg Q6H PRN PRN Administration abdominal discomfort Folic Acid 1 mg 12/22/24 08:00 12/23/24 08:01 Folic Acid 1 Mg Tablet PO Not Given DAILY@0800 QUAN Gabapentin 300 mg 12/22/24 07:07 Gabapentin 300 Mg Capsule PO Q8H PRN PRN moderate to severe anxiety Hydralazine HCl 5 mg 12/22/24 02:40 Hydralazine 20 Mg/Ml Vial IV TID PRN PRN SBP GREATER THAN 160 Protocol Hydromorphone HCl 0.5 mg 12/22/24 03:18 Hydromorphone 0.5 Mg/0.5 Ml Syringe IV Q4H PRN PRN Pain Score 6-10 Hydroxyzine HCl 50 mg 12/22/24 03:18 Hydroxyzine 50 Mg/Ml Vial IM TID PRN PRN AGITATION Hydroxyzine Pamoate 50 mg 12/22/24 07:07 12/22/24 08:02 Hydroxyzine [place] 25 Mg Capsule PO 50 mg Q4H PRN PRN Administration mild anxiety Sodium Chloride 250 mls @ 15 mls/hr 12/22/24 03:21 IV .[id number] PRN Saline Flush Sodium Chloride 250 mls @ 15 mls/hr 12/22/24 03:21 IV .[id number] PRN Additional IVPB Infusion Lactated Ringer's 1,000 mls @ 15 mls/hr 12/23/24 15:45 12/23/24 15:51 IV 15 mls/hr .Q48H QUAN Administration Ketorolac Tromethamine 15 mg 12/22/24 03:18 12/22/24 07:59 Ketorolac 15 Mg/Ml Vial IV 12/27/24 03:19 15 mg Q8H PRN PRN Administration Pain 1-5/10 or Fever Lisinopril 10 mg 12/22/24 10:00 12/23/24 08:11 Lisinopril 10 Mg Tablet PO Not Given DAILY [facility] Protocol Loperamide HCl 2 mg 12/22/24 07:07 Loperamide 2 Mg Capsule PO Q4H PRN PRN DIARRHEA/LOOSE STOOLS Ondansetron HCl 4 mg 12/22/24 03:18 12/22/24 07:59 Ondansetron 4 Mg/2 Ml Vial IV 4 mg Q4H PRN PRN Administration NAUSEA/VOMITING Ondansetron HCl 8 mg 12/22/24 07:07 Ondansetron 8 Mg Tablet PO Q8H PRN PRN NAUSEA Phenobarbital 64.8 mg 12/22/24 07:30 12/23/24 15:01 Phenobarbital 32.4 Mg Tablet PO 12/26/24 15:29 Not Given Q4H QUAN Taper Promethazine HCl 12.5 mg 12/22/24 03:18 Promethazine 25 Mg/Ml Syringe IM Q4H PRN PRN Breakthrough nausea/Vomiting Sodium Chloride 10 - 40 ml 12/22/24 03:21 12/22/24 09:48 0.9% Saline Lock 10 Ml Syringe IV 10 ml UD PRN Administration SALINE FLUSH Thiamine HCl 100 mg 12/22/24 08:00 12/23/24 08:01 Thiamine Hydrochloride 100 Mg Tablet PO Not Given DAILYCM QUAN Trazodone HCl 100 mg 12/22/24 07:07 Trazodone 100 Mg Tablet PO QHS PRN INSOMNIA Venlafaxine HCl 37.5 mg 12/22/24 10:00 12/23/24 08:11 Venlafaxine Xr 37.5 Mg Capsule PO Not Given DAILY QUAN PFSH Medical History (Updated 12/23/24 @ 08:[address] Palmer Sorenson, DO) Hypertension Back pain with history of spinal surgery Home Medications ?Medication ?Instructions ?Recorded ?Last Taken ?Type lisinopril 10 mg tablet 10 mg PO DAILY 01/05/23 Unknown History desvenlafaxine succinate 50 mg 50 mg PO DAILY 12/21/24 Unknown History tablet,extended release 24 hr Allergy/AdvReac Type Severity Reaction Status Date / Time No Known Allergies Allergy Verified 12/21/24 21:35 Family History Other Anxiety Colon cancer Depression Heart disease Surgical History (Updated 12/23/24 @ 16:[address] Manpreet Berman MD) Lumbar back pain with radiculopathy affecting left lower extremity Cervical spine instability H/O knee surgery Social History Smoking Status: Never smoker alcohol intake: former details: Drinking alcohol 2 weeks ago Review of Systems (Anesthesia) ROS Narrative System reviewed and no additional complaints, except as documented.
--- NOTE | 2024-12-23 16:31 | PCM.PN.BLA ---
Progress Note Patient is for an EGD today. He has been NPO. Physical Exam Const alert, oriented x3, no apparent distress and healthy appearing General Appearance: cooperative GI normal to inspection, nondistended, normoactive bowel sounds, soft to palpation, non-tender and non-distended Percussion: normal to percussion Rectal Exam: deferred Assessment & Plan Assessment/Plan (1) Alcoholic pancreatitis: QUALIFIERS: Chronicity: acute Acute pancreatitis complication: unspecified Qualified Code(s): K85.20 - Alcohol induced acute pancreatitis without necrosis or infection (2) Chronic alcohol abuse: (3) Transaminitis: (4) Abdominal mass, left upper quadrant: (5) Fever: QUALIFIERS: Fever type: unspecified Qualified Code(s): R50.9 - Fever, unspecified (6) Abdominal pain: QUALIFIERS: Abdominal location: epigastric Qualified Code(s): R10.13 - Epigastric pain (7) Obesity (BMI 30.0-34.9): (8) Depression with anxiety: (9) Dysphagia: PLAN: Plan 64-year-old gentleman comes in for worsening abdominal pain and discovered to have biochemical evidence of cholestatic hepatitis with pancreatitis by blood work. CT scan of the abdomen and pelvis with IV contrast that revealed no evidence of acute pancreatitis but did show ~4 cm ovoid focus at the LUQ between the tail of the pancreas, upper pole of the Left kidney and splenic hilum with unclear etiology. MRI does not show with the the lesion is near the spleen on the left kidney. Patient should get a CA 19-9 along with a CEA and alpha-fetoprotein. He will need endoscopic ultrasound to evaluate the lesion and possible biopsy. Consider urology consultation for lesion near the upper pole of the left kidney. The patient possibly has stricturing disease allowing for dilated common bile duct and pancreatic duct versus ampullary neoplasm. He should undergo endoscopic evaluation. He will undergo an ERCP to evaluate the abnormal MRCP showing stricture at the level of the distal common bile duct possibly secondary to ampullary lesion. Visit Charges Inpatient E&M: 32951 Subs Hosp L3
--- NOTE | 2024-12-23 17:12 | PCM.POST.ANE ---
Anesthesia: Postop Eval I Current Vital Signs Temperature: 97.9 F Pulse Rate: 83 Blood Pressure: 124/80 Respiratory Rate: 18 Pulse Ox: 96 Oxygen Delivery Method: Room Air Assessment Airway patent: Yes Spontaneous unlabored respirations: Yes Mental status: Awake nausea: No Vomiting: No Anesthesia Complication: No Fluid Hydration Crystalloid volume administer (ml): 500 Total IV fluid infused: 500 Progress Note Anesthesia document: Postop Eval 1 completed: Yes
--- NOTE | 2024-12-23 18:42 | PCM.PN.BLA ---
Progress Note Patient underwent ERCP and was discovered to have multiple choledocholithiasis along with a distal biliary stricture. Cytology was taken of the biliary stricture and a biliary stent was placed. His cystic duct was patent. He did have some small stones in his gallbladder. He will need a CA 19-9 which is a tumor marker for pancreatic cancer and cholangiocarcinoma along with alpha-fetoprotein. Advance diet as tolerated. Physical Exam Const alert, oriented x3, no apparent distress and healthy appearing General Appearance: cooperative GI normal to inspection, nondistended, normoactive bowel sounds, soft to palpation, non-tender and non-distended Percussion: normal to percussion Rectal Exam: deferred Assessment & Plan Assessment/Plan (1) Alcoholic pancreatitis: QUALIFIERS: Chronicity: acute Acute pancreatitis complication: unspecified Qualified Code(s): K85.20 - Alcohol induced acute pancreatitis without necrosis or infection (2) Chronic alcohol abuse: (3) Transaminitis: (4) Abdominal mass, left upper quadrant: (5) Fever: QUALIFIERS: Fever type: unspecified Qualified Code(s): R50.9 - Fever, unspecified (6) Abdominal pain: QUALIFIERS: Abdominal location: epigastric Qualified Code(s): R10.13 - Epigastric pain (7) Obesity (BMI 30.0-34.9): (8) Depression with anxiety: (9) Dysphagia: PLAN: Plan 64-year-old gentleman comes in for worsening abdominal pain and discovered to have biochemical evidence of cholestatic hepatitis with pancreatitis by blood work. CT scan of the abdomen and pelvis with IV contrast that revealed no evidence of acute pancreatitis but did show ~4 cm ovoid focus at the LUQ between the tail of the pancreas, upper pole of the Left kidney and splenic hilum with unclear etiology. MRI does not show with the the lesion is near the spleen on the left kidney. Patient should get a CA 19-9 along with a CEA and alpha-fetoprotein. He will need endoscopic ultrasound to evaluate the lesion and possible biopsy. Consider urology consultation for lesion near the upper pole of the left kidney. The patient possibly has stricturing disease allowing for dilated common bile duct and pancreatic duct versus ampullary neoplasm. He should undergo endoscopic evaluation. He will undergo an ERCP to evaluate the abnormal MRCP showing stricture at the level of the distal common bile duct possibly secondary to ampullary lesion. 12/23/2024-biliary stricture, choledocholithiasis status post stone removal and stent placement yes Visit Charges Inpatient E&M: 66403 [facility] Hosp L3
--- NOTE | 2024-12-23 18:57 | OP.ERCP_ITS ---
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 Refer to note in patient chart for documentation of history and physical. Patient has symptoms of acute right upper quadrant abdominal pain and acute jaundice. The symptoms first began one week ago. This patient has no history of previous ERCP. This patient has no history of surgical alteration of the upper digestive tract anatomy. Complications: No immediate complications. Procedure: Pre-Anesthesia Assessment: - Prior to the procedure, a History and Physical was performed, and patient medications and allergies were reviewed. The patient is competent. The risks and benefits of the procedure and the sedation options and risks were discussed with the patient. All questions were answered and informed consent was obtained. Patient identification and proposed procedure were verified by the physician in the pre-procedure area. Mental Status Examination: alert and oriented. Airway Examination: normal oropharyngeal airway and neck mobility. Respiratory Examination: clear to auscultation. CV Examination: normal. Prophylactic Antibiotics: The patient does not require prophylactic antibiotics. Prior Anticoagulants: The patient has taken no anticoagulant or antiplatelet agents except for NSAID medication. ASA Grade Assessment: II - A patient with mild systemic disease. After reviewing the risks and benefits, the patient was deemed in satisfactory condition to undergo the procedure. The anesthesia plan was to use monitored anesthesia care (MAC). Immediately prior to administration of medications, the patient was re-assessed for adequacy to receive sedatives. The heart rate, respiratory rate, oxygen saturations, blood pressure, adequacy of pulmonary ventilation, and response to care were monitored throughout the procedure. The physical status of the patient was re-assessed after the procedure. After obtaining informed consent, the scope was passed under direct vision. Throughout the procedure, the patient's blood pressure, pulse, and oxygen saturations were monitored continuously. The Duodenoscope was introduced through the mouth, and advanced to the duodenum and used to inject contrast into the bile duct and ventral pancreatic duct. The ERCP was accomplished without difficulty. The patient tolerated the procedure well. Findings: The coremaker bench film was normal. The esophagus was successfully intubated under direct vision. The scope was advanced to a normal major papilla in the descending duodenum without detailed examination of the pharynx, larynx and associated structures, and upper GI tract. The upper GI tract was grossly normal. The ventral pancreatic duct was deeply cannulated with the short-nosed traction sphincterotome. Contrast was injected. I personally interpreted the pancreatic duct images. There was brisk flow of contrast through the ducts. Image quality was adequate. Contrast extended to the pancreatic duct. Opacification of the entire pancreatic ductal system was successful. The maximum diameter of the ducts was 3 mm. The entire opacified area was normal. A long 0.025 inch Jagwire was passed into the ventral pancreatic duct. A 5 mm ventral pancreatic sphincterotomy was made with a braided traction (standard) sphincterotome using ERBE electrocautery. There was no post-sphincterotomy bleeding. To find object(s) the ventral pancreatic duct was swept with a 6 mm balloon starting at the pancreatic duct in the body of the pancreas. Debris was swept from the duct. The bile duct was deeply cannulated with the short-nosed traction sphincterotome. Contrast was injected. Opacification of the entire opacified area and entire biliary tree was successful. The maximum diameter of the ducts was 10 mm. The lower third of the main bile duct contained a single segmental stenosis 6 mm in length. The entire opacified area and entire biliary tree were diffusely dilated, with a stone causing an obstruction. The largest diameter was 10 mm. A long 0.025 inch Jagwire was passed into the biliary tree. A 5 mm biliary sphincterotomy was made with a traction (standard) sphincterotome using ERBE electrocautery. There was no post-sphincterotomy bleeding. The biliary tree was swept with a 12 mm balloon starting at the upper third of the main bile duct, middle third of the main bile duct, lower third of the main duct, cystic duct, gallbladder, bifurcation, left intrahepatic duct(s), left main hepatic duct, right intrahepatic duct(s) and right main hepatic duct. Sludge was swept from the duct. All stones were removed. Cells for cytology were obtained by brushing in the hepatic duct bifurcation. One 10 Fr by 7 cm temporary stent was placed 5 cm into the common bile duct. Bile flowed through the stent. The stent was in good position. Impression: - A single segmental biliary stricture was found in the lower third of the main bile duct. The stricture was inflammatory. - The entire biliary tree was dilated, with a stone causing an obstruction. - Choledocholithiasis was found. Complete removal was accomplished by biliary sphincterotomy and balloon extraction. - A pancreatic sphincterotomy was performed. - The ventral pancreatic duct was swept and debris was found. - A biliary sphincterotomy was performed. - The biliary tree was swept. - Cells for cytology obtained at the hepatic duct bifurcation. - One temporary stent was placed into the common bile duct. Procedure Code(s): --- Professional --- 24108, Endoscopic retrograde cholangiopancreatography (ERCP); with placement of endoscopic stent into biliary or pancreatic duct, including pre- and post-dilation and guide wire passage, when performed, including sphincterotomy, when performed, each stent [id number], 51, Endoscopic retrograde cholangiopancreatography (ERCP); with removal of calculi/debris from biliary/pancreatic duct(s) 40870, 59, Endoscopic retrograde cholangiopancreatography (ERCP); with sphincterotomy/papillotomy 33943, 26, Endoscopic catheterization of the pancreatic ductal system, radiological supervision and interpretation CPT copyright 2021 [employer]. All rights reserved. The codes documented in this report are preliminary and upon welding machine operator arc review may be revised to meet current compliance requirements. Abimael Welch DO 12/23/2024 6:56:54 PM This report has been signed electronically. Number of Addenda: 0 Note Initiated On: 12/23/2024 6:48 PM
--- NOTE | 2024-12-23 18:57 | OP.CCLET_ITS ---
12/23/2024 Riaz Moe Re : ERCP procedure for Drake Moe This procedure was performed on Monday, December 23, 2024. My impressions and recommendations are as follows: Impressions : - A single segmental biliary stricture was found in the lower third of the main bile duct. The stricture was inflammatory. - The entire biliary tree was dilated, with a stone causing an obstruction. - Choledocholithiasis was found. Complete removal was accomplished by biliary sphincterotomy and balloon extraction. - A pancreatic sphincterotomy was performed. - The ventral pancreatic duct was swept and debris was found. - A biliary sphincterotomy was performed. - The biliary tree was swept. - Cells for cytology obtained at the hepatic duct bifurcation. - One temporary stent was placed into the common bile duct. Recommendations : My findings are described in the full procedure note, which is enclosed. If I can be of further assistance, please feel free to contact me at . Sincerely, Abimael Welch DO 12/23/2024 6:56:54 PM This report has been signed electronically.
[2024-12-23] MEDS: Phenobarbital 32.4 MG Tablet 64.8 MG PO ×2 (19:39→23:43)
--- NOTE | 2024-12-23 19:51 | POSTOPAN2_ITS ---
Anesthesia Postop Eval I Sum Postop Eval Completion status Anesthesia document: Postop Eval 1 completed: Yes Anesthesia Postop Eval I Summary Anesthesia Postop Eval I Summary: Anesthesia Postop Eval I: Assessment Summary Airway patent Yes 12/23/24 17:34 [email or web address] Spontaneous unlabored Yes 12/23/24 17:34 [email or web address] respirations Mental status Awake 12/23/24 17:34 [email or web address] nausea No 12/23/24 17:34 [email or web address] Vomiting No 12/23/24 17:34 [email or web address] Anesthesia Postop Eval I: Fluid Summary Crystalloid volume administer 500 12/23/24 17:34 [email or web address] (ml) Colloids volume administered ( ml) Blood Product volume administered (ml) Total IV fluid infused 500 12/23/24 17:34 [email or web address] Anesthesia Postop Eval I: Summary Notes Anesthesia Complication No 12/23/24 17:34 [email or web address] Anesthesia Complication Comment: Post-operative progress note Anesthesia: Postop Eval II Evaluation Mental status: Awake and Calm Pain Level: 3 nausea: No Vomiting: No Complications Anesthesia Complication: No
--- NOTE | 2024-12-23 19:51 | PCM.POSTANE2 ---
Anesthesia Postop Eval I Sum Postop Eval Completion status Anesthesia document: Postop Eval 1 completed: Yes Anesthesia Postop Eval I Summary Anesthesia Postop Eval I Summary: Anesthesia Postop Eval I: Assessment Summary Airway patent Yes 12/23/24 17:34 [email or web address] Spontaneous unlabored Yes 12/23/24 17:34 [email or web address] respirations Mental status Awake 12/23/24 17:34 [email or web address] nausea No 12/23/24 17:34 [email or web address] Vomiting No 12/23/24 17:34 [email or web address] Anesthesia Postop Eval I: Fluid Summary Crystalloid volume administer 500 12/23/24 17:34 [email or web address] (ml) Colloids volume administered ( ml) Blood Product volume administered (ml) Total IV fluid infused 500 12/23/24 17:34 [email or web address] Anesthesia Postop Eval I: Summary Notes Anesthesia Complication No 12/23/24 17:34 [email or web address] Anesthesia Complication Comment: Post-operative progress note Anesthesia: Postop Eval II Evaluation Mental status: Awake and Calm Pain Level: 3 nausea: No Vomiting: No Complications Anesthesia Complication: No
[2024-12-23] MEDS: 0.9% Saline Lock 10 ML Syringe IV (20:16)
[2024-12-23] MEDS: HYDROmorphone 0.5 MG/0.5 ML SYRINGE IV (20:16)
[2024-12-24 04:00] VITALS: BP 130/77; PULSE 76; RESP 15; TEMP 36.5; O2SAT 95
[2024-12-24 06:00] VITALS: BMI 33.5
[2024-12-24] MEDS: Thiamine Hydrochloride 100 MG Tablet PO (08:49)
[2024-12-24] MEDS: Lisinopril 10 MG Tablet PO (08:49)
[2024-12-24] MEDS: Venlafaxine XR 37.5 MG Capsule PO (08:49)
[2024-12-24] MEDS: Folic Acid 1 MG Tablet PO (08:49)
[2024-12-24 09:35] VITALS: BP 141/83; PULSE 74; RESP 16; TEMP 36.6; O2SAT 97
[2024-12-24] MEDS: Ketorolac 15 MG/ML Vial IV (11:01)
[2024-12-24] MEDS: 0.9% Saline Lock 10 ML Syringe IV (11:01)
[2024-12-24] MEDS: Ceftriaxone 1 GM/50 ML BAG IV (11:20)
[2024-12-24] MEDS: HYDROmorphone 0.5 MG/0.5 ML SYRINGE IV ×2 (12:17→22:19)
--- NOTE | 2024-12-24 12:53 | PN_ITS ---
Subjective Subjective Patient seen and examined. He had no active complaints and had an uneventful night. Review of systems is otherwise negative. He had a biliary stent inserted yesterday. Review of systems is otherwise negative. Objective Data Objective Data Vital Signs: Vital Signs Temp Pulse Resp BP Pulse Ox O2 Del Method 97.9 F 74 16 141/83 H 97 Room Air 12/24/24 09:35 12/24/24 09:35 12/24/24 09:35 12/24/24 09:35 12/24/24 09:35 12/24/24 09:37 Oxygen Delivery Method Room Air Weight: 182 lb 1.629 oz Body Mass Index (BMI) 33.5 Intake & Output: Intake and Output for Last 24 Hours 12/22/24 12/23/24 12/24/24 23:59 23:59 23:59 Intake Total 3242.5 / 3242.5 1000 / 1000 304.25 / 304.25 Balance 3242.5 / 3242.5 1000 / 1000 304.25 / 304.25 Lab / Micro Data 12/22/24 06:17 12/22/24 06:17 Radiography Diagnostic Testing: Radiology Impression C-Arm Fluoroscopy 12/23/24 07:27 IMPRESSION: Fluoroscopy was provided for ERCP. Also, 10 fluoroscopic images were obtained. Reading Location: [place] [address] Endo Retro Cholangiopancreatogram 12/23/24 07:27 IMPRESSION: Fluoroscopy was provided for ERCP. Also, 10 fluoroscopic images were obtained. Reading Location: [place] [address] Physical Exam Const alert, oriented x3, no apparent distress and well nourished General Appearance: cooperative and well developed HEENT normocephalic, head/scalp atraumatic, moist oral mucous membranes, oropharynx normal and gingiva normal Eyes PERRL and EOMs intact bilaterally Neck no lymphadenopathy and supple Lymph Lymphatic: no lymphadenopathy noted and no lymphedema noted Resp normal respiratory effort, normal air movement and clear to auscultation bilaterally Cardio regular rate, regular rhythm, S1 normal heart sound, S2 normal heart sound and no murmurs GI normal to inspection, nondistended, normoactive bowel sounds, soft to palpation, non-tender and non-distended Extremity normal capillary refill, no clubbing, cyanosis or edema and no calf tenderness General Extremity: no tenderness to palpation of joints or extremities Skin General Skin Exam: no breakdown Neuro CN's II-XII intact bilaterally, no focal motor deficits and no sensory deficits noted Motor Exam: strength 5/5 throughout and general weakness Psych thought process normal, cooperative and affect normal Appearance: appropriate Assessment & Plan Assessment/Plan (1) Alcoholic pancreatitis: QUALIFIERS: Chronicity: acute Acute pancreatitis complication: u nspecified Qualified Code(s): K85.20 - Alcohol induced acute pancreatitis without necrosis or infection (2) Elevated liver enzymes: PLAN: Plan #Acute pancreatitis * Related to alcohol. However imaging with MRI also showed cholelithiasis and choledocholithiasis as well as a 4.[address] noted as an exophytic left upper pole renal lesion * had ERCP which shwoed a single segmental biliary stricture found in the lower third ofthe main bile duct, with the structure being inflammatory. Entire biliary duct was dilated with a stone causing an obstruction; choledocholithiasis was found, with complete removal by biliary sphencterotomy and balloon extraction; pancratic sphinterotomy was performed and cells for cytology obtained at the hepatic duct bifurcation; a temporary stent was placed into the common bile duct. * GI on board * #UTI * urinalysis from 12/22/2024 showed 2+ bacteria * will start on IV ceftriaxone. Urine cultures also ordered. * # Chronic alcohol abuse: * On alcohol withdrawal protocol with phenobarbital. On adjunctive meds for symptomatic relief. On thiamine and folic acid * #Left renal mass * MRCP showed findings compatible with trace to mild acute pancreatitis, as well as a 4.1cm lesion that reflects an exophytic left upper pole renal lesion' recommends outpatient multiphase CT or MRI abdomen with and witout contrast for more definitive characterisation. * to follow up with PCP for further workup as needed. * #Hypertension: on lisinopril #Depression: on SNRI #Class I obesity: complicates acute care, expected recovery and prognosis DVT prophylaxis: SCDs Charges/Coding Visit Charges Inpatient E&M: 93764 Subs Hosp L2
[2024-12-24 13:13] VITALS: O2SAT 91
[2024-12-24 16:28] VITALS: BP 129/74; PULSE 67; RESP 16; TEMP 37.2; O2SAT 98
--- NOTE | 2024-12-24 18:17 | PCM.PN.BLA ---
Progress Note Patient is status post ERCP with stone removal and stent placement. Brushings of distal common bile duct stricture were taken but they are pending. His CA 19-9 is normal. Physical Exam Const alert, oriented x3, no apparent distress and well nourished General Appearance: cooperative and well developed HEENT normocephalic, head/scalp atraumatic, moist oral mucous membranes, oropharynx normal and gingiva normal Eyes PERRL and EOMs intact bilaterally Neck no lymphadenopathy and supple Lymph Lymphatic: no lymphadenopathy noted and no lymphedema noted Resp normal respiratory effort, normal air movement and clear to auscultation bilaterally Cardio regular rate, regular rhythm, S1 normal heart sound, S2 normal heart sound and no murmurs GI normal to inspection, nondistended, normoactive bowel sounds, soft to palpation, non-tender and non-distended Extremity normal capillary refill, no clubbing, cyanosis or edema and no calf tenderness General Extremity: no tenderness to palpation of joints or extremities Skin General Skin Exam: no breakdown Neuro CN's II-XII intact bilaterally, no focal motor deficits and no sensory deficits noted Motor Exam: strength 5/5 throughout and general weakness Psych thought process normal, cooperative and affect normal Appearance: appropriate Assessment & Plan Assessment/Plan (1) Alcoholic pancreatitis: QUALIFIERS: Chronicity: acute Acute pancreatitis complication: unspecified Qualified Code(s): K85.20 - Alcohol induced acute pancreatitis without necrosis or infection (2) Chronic alcohol abuse: (3) Transaminitis: (4) Abdominal mass, left upper quadrant: (5) Fever: QUALIFIERS: Fever type: unspecified Qualified Code(s): R50.9 - Fever, unspecified (6) Abdominal pain: QUALIFIERS: Abdominal location: epigastric Qualified Code(s): R10.13 - Epigastric pain (7) Obesity (BMI 30.0-34.9): (8) Depression with anxiety: (9) Dysphagia: PLAN: Plan 64-year-old gentleman comes in for worsening abdominal pain and discovered to have biochemical evidence of cholestatic hepatitis with pancreatitis by blood work. CT scan of the abdomen and pelvis with IV contrast that revealed no evidence of acute pancreatitis but did show ~4 cm ovoid focus at the LUQ between the tail of the pancreas, upper pole of the Left kidney and splenic hilum with unclear etiology. MRI does not show with the the lesion is near the spleen on the left kidney. Patient should get a CA 19-9 along with a CEA and alpha-fetoprotein. He will need endoscopic ultrasound to evaluate the lesion and possible biopsy. Consider urology consultation for lesion near the upper pole of the left kidney. The patient possibly has stricturing disease allowing for dilated common bile duct and pancreatic duct versus ampullary neoplasm. He should undergo endoscopic evaluation. He will undergo an ERCP to evaluate the abnormal MRCP showing stricture at the level of the distal common bile duct possibly secondary to ampullary lesion. 12/23/2024-biliary stricture, choledocholithiasis status post stone removal and stent placement yes 12/24/2024-patient is tolerating a diet. If he continues to do well he can be DC'd tomorrow Visit Charges Inpatient E&M: 50222 [facility] Hosp L3
[2024-12-24 22:00] VITALS: BP 142/96; PULSE 78; RESP 15; TEMP 36.4; O2SAT 95
[2024-12-25 04:00] VITALS: BP 136/83; PULSE 76; RESP 15; TEMP 36.6; O2SAT 94
[2024-12-25 04:13] VITALS: BP 136/83; PULSE 76; RESP 15; TEMP 36.6; O2SAT 94
[2024-12-25 05:47] LABS: Absolute Lymphocyte Count 1.76 X10^3/uL (0.83-4.51); Absolute Neutrophil Count 6.2 X10^3/uL (2.0-7.7); Basophil# 0.06 X10^3/uL; Basophil% 0.7 % (0-1); Eosinophils% 4.5 % (0-5); Hematocrit 36.6 % (40-54); Hemoglobin 12.2 g/dL (13.0-16.5); Lymphocyte # 1.76 X10^3/ul (0.83-4.51); Lymphocyte % 19.8 % (19-41); Mean Corp Hgb Conc 33.3 g/dL (32-36); Mean Corpuscular Hgb 29.8 pg (27.0-32.0); Mean Corpuscular Volume 89.5 fL (80-94); Mean Platelet Vol. 8.8 fl (6.2-12.0); Monocyte# 0.42 X10^3/uL; Monocyte% 4.7 % (0-10); NRBC Flagged by Analyzer 0 % (0-5); Neutrophil # 6.18 X10^3/uL (2.7-7.7); Neutrophil % 69.6 % (47-70); Platelet Count 241 K/mm3 (150-450); RBC Distribution Width SD 39.2 fl (35.1-43.9); Red Blood Count 4.09 M/mm3 (4.6-6.2); White Blood Count 8.9 K/mm3 (4.4-11.0)
[2024-12-25 06:00] VITALS: BMI 33.5
[2024-12-25 06:18] LABS: Anion Gap 11 (5-15); BUN 10 mg/dL (4-19); BUN/Creat Ratio 15.8 RATIO (10-20); Calcium,Total 8.8 mg/dL (7.6-11.0); Carbon Dioxide 23.3 mmol/L (21.0-32.0); Chloride 102 mmol/L (98-108); Creatinine, Serum 0.61 mg/dL (0.70-1.20); EST Glomerular Filtration Rate 109 (>60); Estimated Creatinine Clearance 116.86 ml/min (50-250); Glucose 102 mg/dL (70-99); Potassium 3.8 mmol/L (3.3-5.1); Sodium Level 136 mmol/L (133-145)
[2024-12-25 07:48] VITALS: BP 142/85; PULSE 84; RESP 16; TEMP 37.2; O2SAT 96
[2024-12-25] MEDS: Folic Acid 1 MG Tablet PO (08:58)
[2024-12-25] MEDS: Ceftriaxone 1 GM/50 ML BAG IV (08:58)
[2024-12-25] MEDS: Lisinopril 10 MG Tablet PO (08:58)
[2024-12-25] MEDS: Venlafaxine XR 37.5 MG Capsule PO (08:58)
[2024-12-25] MEDS: Thiamine Hydrochloride 100 MG Tablet PO (08:58)
[2024-12-25 10:00] VITALS: BP 142/85; PULSE 84; RESP 16; TEMP 37.2; O2SAT 96
[2024-12-25 11:14] VITALS: O2SAT 90
[2024-12-25] MEDS: Bisacodyl 5 MG Tablet 10 MG PO (11:41)
[2024-12-25] MEDS: HYDROmorphone 0.5 MG/0.5 ML SYRINGE IV (11:46)
--- NOTE | 2024-12-25 11:50 | CASEMGMT ---
MIQUEL QUICK NOTE: Discharge order is in. MIQUEL QUICK to room. Introduced self and role. Pt denies having any discharge needs or concerns. He states his will be taking hime home. Deepali ORTIZN MIQUEL QUICK
--- NOTE | 2024-12-25 12:05 | DCINST_ITS ---
Discharge Instructions Diet Discharge Diet: Low fat / Low cholesterol DC O2, CPAP, BIPAP needs Home O2 Discharge instructions: No Dressing / Incision Weight Bearing Status: Weight bearing as tolerated Dressing / Incision Call your doctor if you observe: Fever of 101 or Higher, Shortness of breath, Dizziness, Swelling in the ankles and Chest pain Follow Up Care Test Results: Test results from this visit will be discussed in further detail at your follow- up appointment, if applicable. Discharge Plan Admission Admit Date/Time: 12/22/24 02:14 Primary Reason for Your Visit: UTI, choledocholithiasis Attending Provider: Bozena Echavarria Primary Care Provider: Riaz Moe Consulting Providers: Collin Zuleta; Abimael Welch; Palmer Sorenson Instructions Patient Instructions: ED Gallstones with Biliary Colic, ED Urinary Tract Infections in Men Discharge Orders/Prescriptions Prescriptions: New cefdinir 300 mg capsule 300 mg PO BID Qty: 10 0RF ondansetron 4 mg tablet,disintegrating 4 mg PO Q8H PRN (Reason: nausea and vomiting) Qty: 20 0RF oxycodone 5 mg tablet 5 mg PO Q6H PRN (Reason: pain) 3 Days Qty: 12 0RF Continued lisinopril 10 mg tablet 10 mg PO DAILY Patient Comments: TAKE 1 TABLET BY MOUTH EVERY DAY desvenlafaxine succinate 50 mg tablet extended release 24 hr 50 mg PO DAILY Referrals / Follow Up: Abimael Welch DO [Med Staff - Active Staff] - Within 2 Weeks Riaz Moe MD [Primary Care Provider] - Within 1 Week Disposition Disposition (needs filled in before D/C Order can be placed): Home, Self Care
--- NOTE | 2024-12-25 12:15 | DS.PCM_ITS ---
Providers Date of Admission: 12/22/24 Date of Discharge: 12/25/24 Primary Care Physician: Dr. Riaz Moe MD Consultations 12/22/24 03:18 Consult: Gastroenterology Routine Consulting Provider: YuriAbimael Reason for Consult: EtOH pancreatitis and LUQ mass. EMERGENT Consult: No MD Notified: Yes Date Notified: 12/22/24 Time Notified: 07:09 Method of Notification: Text Reason For Visit: ETOH PANCREATRITIS, TRANSAMINITIS AND -4 CM MASS Diagnosis Discharge Diagnosis (1) Alcoholic pancreatitis: Status: Acute Code(s): K85.20 - Alcohol induced acute pancreatitis without necrosis or infection Qualifiers: Acute pancreatitis complication: unspecified Chronicity: acute Q ualified Code(s): K85.20 - Alcohol induced acute pancreatitis without necrosis or infection (2) Chronic alcohol abuse: Status: Chronic Code(s): F10.10 - Alcohol abuse, uncomplicated (3) Transaminitis: Status: Acute Code(s): R74.01 - Elevation of levels of liver transaminase levels (4) Abdominal mass, left upper quadrant: Status: Acute Code(s): R19.02 - Left upper quadrant abdominal swelling, mass and lump (5) Fever: Status: Acute Code(s): R50.9 - Fever, unspecified Qualifiers: Fever type: unspecified Qualified Code(s): R50.9 - Fever, unspecified (6) Abdominal pain: Status: Acute Code(s): R10.9 - Unspecified abdominal pain Qualifiers: Abdominal location: epigastric Qualified Code(s): R10.13 - Epigastric pain (7) Obesity (BMI 30.0-34.9): Status: Acute Code(s): E66.811 - Obesity, class 1 (8) Depression with anxiety: Status: Acute Code(s): F41.8 - Other specified anxiety disorders (9) Dysphagia: Status: Acute Code(s): R13.10 - Dysphagia, unspecified Plan #Acute pancreatitis * Related to alcohol. However imaging with MRI also showed cholelithiasis and choledocholithiasis as well as a 4.[address] noted as an exophytic left upper pole renal lesion * had ERCP which shwoed a single segmental biliary stricture found in the lower third ofthe main bile duct, with the structure being inflammatory. Entire biliary duct was dilated with a stone causing an obstruction; choledocholithiasis was found, with complete removal by biliary sphencterotomy and balloon extraction; pancratic sphinterotomy was performed and cells for cytology obtained at the hepatic duct bifurcation; a temporary stent was placed into the common bile duct. * GI on board * #UTI * urinalysis from 12/22/2024 showed 2+ bacteria * will start on IV ceftriaxone. Urine cultures also ordered. * # Chronic alcohol abuse: * On alcohol withdrawal protocol with phenobarbital. On adjunctive meds for symptomatic relief. On thiamine and folic acid * #Left renal mass * MRCP showed findings compatible with trace to mild acute pancreatitis, as well as a 4.1cm lesion that reflects an exophytic left upper pole renal lesion' recommends outpatient multiphase CT or MRI abdomen with and witout contrast for more definitive characterisation. * to follow up with PCP for further workup as needed. * #Hypertension: on lisinopril #Depression: on SNRI #Class I obesity: complicates acute care, expected recovery and prognosis DVT prophylaxis: SCDs Medications at Discharge Home Medications lisinopril 10 mg tablet 10 mg PO DAILY 01/05/23 desvenlafaxine succinate 50 mg tablet,extended release 24 hr 50 mg PO DAILY 12/21/24 cefdinir 300 mg capsule 300 mg PO BID #10 caps 12/25/24 ondansetron 4 mg disintegrating tablet 4 mg PO Q8H PRN nausea and vomiting #20 tabs 12/25/24 oxycodone 5 mg tablet 5 mg PO Q6H PRN pain 3 days #12 tabs 12/25/24 Hospital Course Operations None Procedures - (ERCP with biliary sphincterotomy) Summary of Care Provided Minutes Spent on Discharge: 45 Hospital Course: Patient is a 64-year-old male with a past medical history as outlined was admitted through the ED on 12/22/2024 with a complaint of progressively worsening abdominal pain which started about 3 weeks prior to admission. The pain was mainly in his epigastric region and was dull, cramping and worsened by palpation. Patient had a history of chronic alcohol abuse and said he drank about 8-10 beers daily. On admission serum lipase level was elevated at 687. CT of the abdomen and pelvis with IV contrast showed no evidence of acute pancreatitis but showed a 4 cm ovoid focus of the left upper quadrant between the tail of the pancreas and the upper pole of the left kidney and splenic hilum with unclear etiology. There was also hepatic steatosis and diverticulosis without diverticulitis. He was admitted to be managed for acute pancreatitis in the setting of chronic alcohol abuse. He had MRCP which showed cholelithiasis and choledocholithiasis as well as the 4.1 cm lesion noted on the CT as an exophytic left upper pole renal lesion. Gastroenterology was consulted. He had ERCP which showed a single segmental biliary stricture found in the lower third of the main bile duct with a structure being inflammatory in the entire biliary duct was dilated with a stone causing an obstruction; choledocholithiasis was found with complete removal by biliary sphincterectomy and balloon extraction and pancreatic sphincterotomy was performed with cells for cytology obtained at the hepatic duct bifurcation. A temporary stent was placed into the common bile duct. Of note patient's urinalysis on admission also showed evidence of UTI so he was started on IV ceftriaxone. He was also placed on alcohol drawl protocol with phenobarbital. Patient symptoms improved and he felt much better. Abdominal pain resolved. Will plan for discharge on 12/25/2024. He was discharged on p.o. cefdinir 300 mg twice daily for 5 days as well as p.o. oxycodone 5 mg every 6 hours as needed for total of 12 tablets for 3 days. OARRS score was checked due to red flags were seen. He was also discharged on p.o. Zofran. He is follow-up with his primary care doctor within 1 to 2 weeks and for further workup as needed of the lesion seen on the left upper pole of the left kidney as seen on MRI. Patient seen and examined prior to discharge. He had no active complaints. He had an uneventful night. Review of systems otherwise negative. Labs and vitals reviewed. Home medication reviewed and reconciled. Physical Exam Const alert, oriented x3, no apparent distress and well nourished Constitutional Narrative: Mild distress noted. General Appearance: cooperative, comfortable, well kempt and well developed Orientation / Consciousness: awake HEENT normocephalic, head/scalp atraumatic, hearing grossly normal bilaterally, moist oral mucous membranes, oropharynx normal and gingiva normal Mouth: oral and palatal mucosa normal Eyes PERRL, EOMs intact bilaterally and conjunctivae normal Neck no lymphadenopathy, supple and no JVD Lymph Lymphatic: no lymphadenopathy noted and no lymphedema noted Resp normal respiratory effort, normal air movement, no retractions, no use of accessory muscles and clear to auscultation bilaterally Cardio regular rate, regular rhythm, S1 normal heart sound, S2 normal heart sound and no murmurs GI normal to inspection, nondistended, normoactive bowel sounds, soft to palpation, non-tender and non-distended Extremity normal to inspection, full ROM, normal capillary refill, no clubbing, cyanosis or edema and no calf tenderness General Extremity: no tenderness to palpation of joints or extremities Skin no rashes or lesions noted and no wounds General Skin Exam: no breakdown Neuro oriented x3, CN's II-XII intact bilaterally, moves all extremities, no focal motor deficits and no sensory deficits noted Sensorium / Orientation: awake, alert, oriented to person, oriented to place and oriented to time Speech: speech normal Motor Exam: strength 5/5 throughout and general weakness Psych thought process normal, cooperative and affect normal Appearance: appropriate Weight / BMI Weight Weight: 182 lb 1.629 oz Body Mass Index (BMI) 33.5 ABG / Lab / Microbiology Data 12/25/24 05:11 12/25/24 05:11 Laboratory: Laboratory Results - last 24 hr 12/25/24 05:11: WBC 8.9, RBC 4.09 L, Hgb 12.2 L, Hct 36.6 L, MCV 89.5, MCH 29.8, MCHC 33.3, RDW Std Deviation 39.2, RDW Coeff of Antony 12.0, Plt Count 241, MPV 8.8, Immature Gran % (Auto) 0.700, Neut % (Auto) 69.6, Lymph % (Auto) 19.8, Mchenry % (Auto) 4.7, Eos % (Auto) 4.5, Baso % (Auto) 0.7, Absolute Neuts (auto) 6.2, Absolute Lymphs (auto) 1.76, Nucleated RBC % 0, Sodium 136, Potassium 3.8, Chloride 102, Carbon Dioxide 23.3, Anion Gap 11, BUN 10, Creatinine 0.61 L, Estim Creat Clear Calc 116.86, Est GFR (MDRD) Non-Af 109, BUN/Creatinine Ratio 15.8, Glucose 102 H, Calcium 8.8 D/C Instructions Discharge Diet: Low fat / Low cholesterol Discharge Activity: Return to Normal Activity Weight Bearing Status: Weight bearing as tolerated Call your doctor if you observe: Fever of 101 or Higher, Shortness of breath, Dizziness, Swelling in the ankles and Chest pain DC O2, CPAP, BIPAP Needs Home O2 Discharge instructions: No DC home with Oxygen: No Meaningful Use Info Meaningful Use Meaningful Use Diagnoses (Choose all that apply): None applicable Ischemic Stroke Statin Dosing Therapy Reference: STATIN DOSE THERAPY REFERENCE: * Patients > 75 years receive moderate or high dose statin therapy. * Patients 75 years or YOUNGER should receive HIGH intensity statin dose unless contraindicated. You will be required to document reason for non-treatment if statin daily dose does not meet guidelines. HIGH DOSE STATIN THERAPY DAILY Atorvastatin > than or = to 40 mg Rosuvastatin > than or = to 20 mg Amlodipine + Atorvastatin > than or = to 2.5/40 mg Ezetimibe + Simvastatin 10/80 mg Simvastatin 80mg Discharge Plan Admission Admit Date/Time: 12/22/24 02:14 Primary Reason for Your Visit: UTI, choledocholithiasis Attending Provider: Bozena Echavarria Primary Care Provider: Riaz Moe Consulting Providers: Collin Zuleta; Abimael Welch; Palmer Sorenson Instructions Patient Instructions: ED Gallstones with Biliary Colic, ED Urinary Tract Infections in Men Discharge Orders/Prescriptions Prescriptions: New cefdinir 300 mg capsule 300 mg PO BID Qty: 10 0RF ondansetron 4 mg tablet,disintegrating 4 mg PO Q8H PRN (Reason: nausea and vomiting) Qty: 20 0RF oxycodone 5 mg tablet 5 mg PO Q6H PRN (Reason: pain) 3 Days Qty: 12 0RF Continued lisinopril 10 mg tablet 10 mg PO DAILY Patient Comments: TAKE 1 TABLET BY MOUTH EVERY DAY desvenlafaxine succinate 50 mg tablet extended release 24 hr 50 mg PO DAILY Referrals / Follow Up: Abimael Welch DO [Med Staff - Active Staff] - Within 2 Weeks Riaz Moe MD [Primary Care Provider] - Within 1 Week Disposition Disposition (needs filled in before D/C Order can be placed): Home, Self Care Charges/Coding Visit Charges Inpatient E&M: 15186 Disch Hosp >30min
--- NOTE | 2024-12-25 17:39 | PCM.PN.BLA ---
Progress Note Patient continues to do well and is tolerating a diet. All his liver enzymes and his pancreatic enzymes have been improving. Physical Exam Const alert, oriented x3, no apparent distress and well nourished Constitutional Narrative: Mild distress noted. General Appearance: cooperative, comfortable, well kempt and well developed Orientation / Consciousness: awake HEENT normocephalic, head/scalp atraumatic, hearing grossly normal bilaterally, moist oral mucous membranes, oropharynx normal and gingiva normal Mouth: oral and palatal mucosa normal Eyes PERRL, EOMs intact bilaterally and conjunctivae normal Neck no lymphadenopathy, supple and no JVD Lymph Lymphatic: no lymphadenopathy noted and no lymphedema noted Resp normal respiratory effort, normal air movement, no retractions, no use of accessory muscles and clear to auscultation bilaterally Cardio regular rate, regular rhythm, S1 normal heart sound, S2 normal heart sound and no murmurs GI normal to inspection, nondistended, normoactive bowel sounds, soft to palpation, non-tender and non-distended Extremity normal to inspection, full ROM, normal capillary refill, no clubbing, cyanosis or edema and no calf tenderness General Extremity: no tenderness to palpation of joints or extremities Skin no rashes or lesions noted and no wounds General Skin Exam: no breakdown Neuro oriented x3, CN's II-XII intact bilaterally, moves all extremities, no focal motor deficits and no sensory deficits noted Sensorium / Orientation: awake, alert, oriented to person, oriented to place and oriented to time Speech: speech normal Motor Exam: strength 5/5 throughout and general weakness Psych thought process normal, cooperative and affect normal Appearance: appropriate Assessment & Plan Assessment/Plan (1) Alcoholic pancreatitis: QUALIFIERS: Chronicity: acute Acute pancreatitis complication: unspecified Qualified Code(s): K85.20 - Alcohol induced acute pancreatitis without necrosis or infection (2) Chronic alcohol abuse: (3) Transaminitis: (4) Abdominal mass, left upper quadrant: (5) Fever: QUALIFIERS: Fever type: unspecified Qualified Code(s): R50.9 - Fever, unspecified (6) Abdominal pain: QUALIFIERS: Abdominal location: epigastric Qualified Code(s): R10.13 - Epigastric pain (7) Obesity (BMI 30.0-34.9): (8) Depression with anxiety: (9) Dysphagia: PLAN: Plan 64-year-old gentleman comes in for worsening abdominal pain and discovered to have biochemical evidence of cholestatic hepatitis with pancreatitis by blood work. CT scan of the abdomen and pelvis with IV contrast that revealed no evidence of acute pancreatitis but did show ~4 cm ovoid focus at the LUQ between the tail of the pancreas, upper pole of the Left kidney and splenic hilum with unclear etiology. MRI does not show with the the lesion is near the spleen on the left kidney. Patient should get a CA 19-9 along with a CEA and alpha-fetoprotein. He will need endoscopic ultrasound to evaluate the lesion and possible biopsy. Consider urology consultation for lesion near the upper pole of the left kidney. The patient possibly has stricturing disease allowing for dilated common bile duct and pancreatic duct versus ampullary neoplasm. He should undergo endoscopic evaluation. He will undergo an ERCP to evaluate the abnormal MRCP showing stricture at the level of the distal common bile duct possibly secondary to ampullary lesion. 12/23/2024-biliary stricture, choledocholithiasis status post stone removal and stent placement yes 12/24/2024-patient is tolerating a diet. If he continues to do well he can be DC'd tomorrow 12/25/2024-patient had a little bit of abdominal pain. I explained to him his tumor markers are within normal limits. With still awaiting the cytology. He will likely need spyglass procedure when he has his stent removal in the near future. Visit Charges Inpatient E&M: 72014 Subs Hosp L3
== END 2024-12-25 13:10 | disposition home or self-care (01) | DRG 439 ==
LOC: ED 12-22 01:57 → MS3 12-22 02:30
PROVIDERS: Internal Medicine Gastroenterology; Admitting Provider Internal Medicine; Emergency Provider Emergency Medicine; PCP Family Medicine; Visit Provider Student in an Organized Health Care Education/Training Program
PROC: 0FC98ZZ Extirpation of Matter from Common Bile Duct, Via Natural or Artificial Opening Endoscopic (ICD-10-PCS; CPT 43260; principal; 2024-12-23 16:45)
DX: K85.20 Alcohol induced acute pancreatitis without necrosis or infection (principal); K80.71 Calculus of gallbladder and bile duct without cholecystitis with obstruction; N39.0 Urinary tract infection, site not specified; D73.89 Other diseases of spleen; K76.0 Fatty (change of) liver, not elsewhere classified; F10.10 Alcohol abuse, uncomplicated; I10 Essential (primary) hypertension; Z68.30 Body mass index [BMI] 30.0-30.9, adult; F41.8 Other specified anxiety disorders; K57.90 Diverticulosis of intestine, part unspecified, without perforation or abscess without bleeding; K80.20 Calculus of gallbladder without cholecystitis without obstruction; R74.01 Elevation of levels of liver transaminase levels; K86.89 Other specified diseases of pancreas; Z81.8 Family history of other mental and behavioral disorders; R19.02 Left upper quadrant abdominal swelling, mass and lump; R10.13 Epigastric pain; E66.811 Obesity, class 1; R13.10 Dysphagia, unspecified
CPT/HCPCS: 36415; 74177; 74181; 74330; 76000; 76770; 78227; 80048; 80053; 81001; 82077; 82607; 82746; 83690; 83735; 84100; 84439; 84443; 84481; 85025; 86301; 87086; 88108; 88304; 88305; 88313; 99284; A9537; C2625; Q9967; A4216; J2405; J2805